=== PATIENT | male | born 1970 | race Caucasian/White ===

== ENCOUNTER → 2017-05-01 | Outpatient (CLI) | payer OTHER ==
[~2017-05-01] MED LIST: ACET325 PO; AMLO5 PO; AMOCLA875 PO; AMOX875 PO; Androgel5 GM; Augmentin 875-1 EACH PO; BACL10 PO; BASAGLAR K100 UNIT/1 SC; CEPH500 PO; CLIN300 PO; CYCL10 PO; ERGO400 PO; FISH OIL 1,0001 EAC1 PO; FISH1000 PO; GABA600 PO; GEMF600 PO; GLIM4 PO; GLYB5 PO; HYDCHL25 PO; HYDMOR4; Humalog100 UNIT/1 SC; IBUP600 PO; INSDET100 SC; INSULANI SC; INSULANI SUBQ; INSULANPEN SC; LISI20 PO; METF500 PO; NIAC500ER PO; Neurontin 300300 MG PO; Norco 10-325 T1 EACH PO; Novolog Fl100 UNIT/1 SQ; OXYC10ER PO; ROSU5 PO; ROXICODONE5 MG PO; SULTRIDS; TRAM50 PO; Zofran Odt4 MG SL
== END | disposition home or self-care (01) ==
LOC: LAB 16:08
DX: M86.179 Other acute osteomyelitis, unspecified ankle and foot (principal)
CPT/HCPCS: 87070; 87077; 87186; 87205

== ENCOUNTER 2017-05-26 09:49 | Emergency (ER) | payer OTHER ==
[~2017-05-26] VITALS: Ht 182.9 cm; Wt 108.9 kg
[~2017-05-26 09:49] MED LIST changes: -BASAGLAR K100 UNIT/1 SC; -CLIN300 PO; -ERGO400 PO; -FISH OIL 1,0001 EAC1 PO; -Humalog100 UNIT/1 SC; -ROXICODONE5 MG PO; -Zofran Odt4 MG SL
[2017-05-26 11:07] LABS: BASOPHILS ABSOLUTE AUTO 0.04 K/mm3 (0.00-0.23); BASOPHILS PERCENT AUTO 1 % (0-2); EOSINOPHILS ABSOLUTE AUTO 0.18 K/mm3 (0.00-0.68); EOSINOPHILS PERCENT AUTO 2 % (0-6); Hematocrit 47.1 % (37.0-53.0); Hemoglobin 16.1 g/dL (13.5-17.5); IMMATURE GRAN ABSOLUTE AUTO 0.02 K/mm3 (0.00-0.10); IMMATURE GRAN PERCENT AUTO 0 % (0-1); LYMPHOCYTES ABSOLUTE AUTO 1.66 K/mm3 (0.84-5.20); LYMPHOCYTES PERCENT AUTO 22 % (21-46); MONOCYTES ABSOLUTE AUTO 0.58 K/mm3 (0.16-1.47); MONOCYTES PERCENT AUTO 8 % (4-13); Mean Corpuscular HGB 28.1 pg (26.0-34.0); Mean Corpuscular HGB Conc 34.2 g/dL (31.5-36.5); Mean Corpuscular Volume 82 fL (80-100); Mean Platelet Volume 11.9 fL (9.1-12.4); NEUTROPHILS ABSOLUTE AUTO 5.13 K/mm3 (1.96-9.15); NEUTROPHILS PERCENT AUTO 67 % (41-73); Platelet Count 241 K/mm3 (150-400); RDW Coefficient Variation 12.4 % (11.7-14.2); RDW Standard Deviation 37.2 fL (35.1-46.3); Red Blood Cell Count 5.72 M/mm3 (4.30-5.90); White Blood Cell Count 7.61 K/mm3 (4.00-11.30)
[2017-05-26 11:27] LABS: Alanine Aminotransfer (ALT/SGP 32 U/L (12-78); Albumin, Blood 3.7 g/dL (3.4-5.0); Albumin/Globulin Ratio 0.8 (0.8-1.8); Alk Phos 121 U/L (50-136); Anion Gap 8 mmol/L (6-16); Aspartate Aminotrans (AST/SGOT 21 U/L (12-37); Bilirubin, Total 0.6 mg/dL (0.1-1.0); Blood Urea Nitrogen 19 mg/dL (8-24); Bun/Creatinine Ratio 35.2 (12.0-20.0); CO2, Blood 28 mmol/L (21-32); Calcium, Blood 9.4 mg/dL (8.5-10.1); Chloride, Blood 99 mmol/L (98-108); Creatinine, Blood 0.54 mg/dL (0.60-1.20); Globulin, Blood 4.4 g/dL (2.2-4.0); Glomerular Filtration Rate >60 (60-); Glucose, Blood 225 mg/dL (70-99); Potassium, Blood 3.9 mmol/L (3.5-5.5); Sodium, Blood 135 mmol/L (136-145); Total Protein, Blood 8.1 g/dL (6.4-8.2)
[2017-05-26] MEDS ORDERED: METF500 PO (12:08)
[2017-05-26] MEDS ORDERED: GEMF600 PO (12:09)
[2017-05-26] MEDS ORDERED: BASAGLAR K100 UNIT/1 SC (12:12)
[2017-05-26] MEDS ORDERED: CLIN300 PO (12:15)
[2017-05-26] MEDS ORDERED: CYCL10 PO (12:15)
[2017-05-26 13:24] LABS: Troponin I <0.015 ng/mL (0.000-0.040)
[2017-05-26] MEDS ORDERED: Zofran Odt4 MG SL (13:33)
[2017-07-29] MEDS ORDERED: Humalog100 UNIT/1 SC (13:54)
[2017-07-29] MEDS ORDERED: GABA600 PO (13:55)
[2017-07-29] MEDS ORDERED: FISH OIL 1,0001 EAC1 PO (13:55)
[2017-07-29] MEDS ORDERED: BASAGLAR K100 UNIT/1 SC (13:57)
[2017-07-29] MEDS ORDERED: ERGO400 PO (13:57)
== END 2017-05-26 13:40 | disposition home or self-care (01) ==
LOC: ER 09:49
PROVIDERS: Emergency Medicine
DX: R11.2 Nausea with vomiting, unspecified (principal); E11.65 Type 2 diabetes mellitus with hyperglycemia; I10 Essential (primary) hypertension; Z88.5 Allergy status to narcotic agent; Z88.8 Allergy status to other drugs, medicaments and biological substances; Z88.2 Allergy status to sulfonamides; Z88.1 Allergy status to other antibiotic agents; Z79.899 Other long term (current) drug therapy; Z79.4 Long term (current) use of insulin; Z87.891 Personal history of nicotine dependence
CPT/HCPCS: 36415; 80053; 83690; 84484; 85025; 93005; 93010; 96361; 96374; 99283; J2405; J7030

== ENCOUNTER → 2017-06-28 | Outpatient (CLI) | payer OTHER ==
[~2017-06-28] MED LIST changes: +BASAGLAR K100 UNIT/1 SC; +CLIN300 PO; +Zofran Odt4 MG SL
[2017-06-28 16:27] LABS: BASOPHILS ABSOLUTE AUTO 0.04 K/mm3 (0.00-0.23); BASOPHILS PERCENT AUTO 1 % (0-2); EOSINOPHILS ABSOLUTE AUTO 0.17 K/mm3 (0.00-0.68); EOSINOPHILS PERCENT AUTO 2 % (0-6); Hematocrit 41.6 % (37.0-53.0); Hemoglobin 14.8 g/dL (13.5-17.5); IMMATURE GRAN ABSOLUTE AUTO 0.03 K/mm3 (0.00-0.10); IMMATURE GRAN PERCENT AUTO 0 % (0-1); LYMPHOCYTES ABSOLUTE AUTO 1.86 K/mm3 (0.84-5.20); LYMPHOCYTES PERCENT AUTO 24 % (21-46); MONOCYTES ABSOLUTE AUTO 0.65 K/mm3 (0.16-1.47); MONOCYTES PERCENT AUTO 9 % (4-13); Mean Corpuscular HGB Conc 35.6 g/dL (31.5-36.5); Mean Corpuscular Volume 82 fL (80-100); Mean Platelet Volume 11.4 fL (9.1-12.4); NEUTROPHILS ABSOLUTE AUTO 4.92 K/mm3 (1.96-9.15); NEUTROPHILS PERCENT AUTO 64 % (41-73); Platelet Count 257 K/mm3 (150-400); RDW Standard Deviation 38.3 fL (35.1-46.3); White Blood Cell Count 7.67 K/mm3 (4.00-11.30)
[2017-06-28 16:38] LABS: Alanine Aminotransfer (ALT/SGP 30 U/L (12-78); Alk Phos 125 U/L (40-126); Amylase, Blood 173 U/L (25-115); Anion Gap 13 mmol/L (6-16); Aspartate Aminotrans (AST/SGOT 17 U/L (12-37); Bilirubin, Total 0.4 mg/dL (0.1-1.0); Blood Urea Nitrogen 24 mg/dL (8-24); Bun/Creatinine Ratio 25.8 (12.0-20.0); CO2, Blood 26 mmol/L (21-32); Calcium, Blood 9.3 mg/dL (8.5-10.1); Chloride, Blood 102 mmol/L (98-108); Creatinine, Blood 0.93 mg/dL (0.60-1.20); Glomerular Filtration Rate >60 (60-); Glucose, Blood 137 mg/dL (70-99); Potassium, Blood 3.5 mmol/L (3.5-5.5); Sodium, Blood 141 mmol/L (136-145)
== END ==
LOC: LAB SHORT 16:23 → LAB EV 16:23
PROVIDERS: Emergency Medicine
DX: R10.9 Unspecified abdominal pain (principal)
CPT/HCPCS: 80053; 82150; 83690; 85025

== ENCOUNTER 2017-07-31 06:07 | Observation (INO) | payer OTHER ==
[~2017-07-31] VITALS: Ht 180.3 cm; Wt 120.7 kg
[~2017-07-31 06:07] MED LIST changes: +ERGO400 PO; +FISH OIL 1,0001 EAC1 PO; +Humalog100 UNIT/1 SC
[2017-07-31 09:38] LABS: Hematocrit 39.8 % (37.0-53.0); Hemoglobin 13.3 g/dL (13.5-17.5); Mean Corpuscular HGB 28.6 pg (26.0-34.0); Mean Corpuscular HGB Conc 33.4 g/dL (31.5-36.5); Mean Corpuscular Volume 86 fL (80-100); Mean Platelet Volume 11.6 fL (9.1-12.4); Platelet Count 195 K/mm3 (150-400); RDW Coefficient Variation 13.3 % (11.7-14.2); RDW Standard Deviation 41.5 fL (35.1-46.3); Red Blood Cell Count 4.65 M/mm3 (4.30-5.90); White Blood Cell Count 5.83 K/mm3 (4.00-11.30)
[2017-07-31 09:53] LABS: Anion Gap 9 mmol/L (6-16); Blood Urea Nitrogen 19 mg/dL (8-24); Bun/Creatinine Ratio 32.9 (12.0-20.0); CO2, Blood 22 mmol/L (21-32); Calcium, Blood 8.6 mg/dL (8.5-10.1); Chloride, Blood 108 mmol/L (98-108); Creatinine, Blood 0.58 mg/dL (0.60-1.20); Glomerular Filtration Rate >60 (60-); Glucose, Blood 188 mg/dL (70-99); Potassium, Blood 3.9 mmol/L (3.5-5.5); Sodium, Blood 139 mmol/L (136-145)
[2017-08-01 06:16] LABS: Anion Gap 5 mmol/L (6-16); Blood Urea Nitrogen 23 mg/dL (8-24); Bun/Creatinine Ratio 34.9 (12.0-20.0); CO2, Blood 27 mmol/L (21-32); Calcium, Blood 8.6 mg/dL (8.5-10.1); Chloride, Blood 106 mmol/L (98-108); Creatinine, Blood 0.66 mg/dL (0.60-1.20); Glomerular Filtration Rate >60 (60-); Glucose, Blood 201 mg/dL (70-99); Potassium, Blood 4.1 mmol/L (3.5-5.5); Sodium, Blood 138 mmol/L (136-145)
[2017-08-01] MEDS ORDERED: ROXICODONE5 MG PO (12:51)
== END 2017-08-01 14:10 | disposition home or self-care (01) ==
LOC: ORSCMMR 06:07 → ORD 07:30 → SURS 08:42 → ORSCMMR 08:42 → SURS 08-01 14:10
PROVIDERS: Internal Medicine; Podiatrist Foot & Ankle Surgery
PROC: 0QBR0ZZ Excision of Left Toe Phalanx, Open Approach (ICD-10-PCS; principal; 2017-07-31 07:30)
PROC: 0Y6S0Z3 Detachment at Left 2nd Toe, Low, Open Approach (ICD-10-PCS; 2017-07-31 07:30)
DX: E11.69 Type 2 diabetes mellitus with other specified complication (principal); M86.8X7 Other osteomyelitis, ankle and foot; E11.621 Type 2 diabetes mellitus with foot ulcer; L97.529 Non-pressure chronic ulcer of other part of left foot with unspecified severity; I10 Essential (primary) hypertension; I25.10 Atherosclerotic heart disease of native coronary artery without angina pectoris; Z95.5 Presence of coronary angioplasty implant and graft; E11.9 Type 2 diabetes mellitus without complications; Z87.891 Personal history of nicotine dependence; Z88.5 Allergy status to narcotic agent; Z88.2 Allergy status to sulfonamides; Z88.8 Allergy status to other drugs, medicaments and biological substances; Z79.4 Long term (current) use of insulin; Z96.698 Presence of other orthopedic joint implants; Z79.899 Other long term (current) drug therapy; Z79.84 Long term (current) use of oral hypoglycemic drugs
CPT/HCPCS: 36415; 80048; 82947; 85027; 87071; 87075; 87077; 87186; 87205; 88305; 88311; 96365; 96366; 96367; 96368; 96375; 96376; G0378; J0690; J0692; J1815; J1817; J2250; J2405; J3010; J3370; J7050; J7120

== ENCOUNTER → 2017-12-03 | Outpatient (CLI) | payer OTHER ==
[~2017-12-03] MED LIST changes: +ROXICODONE5 MG PO
[2017-12-03 14:11] LABS: BASOPHILS ABSOLUTE AUTO 0.03 K/mm3 (0.00-0.23); BASOPHILS PERCENT AUTO 1 % (0-2); EOSINOPHILS ABSOLUTE AUTO 0.09 K/mm3 (0.00-0.68); EOSINOPHILS PERCENT AUTO 2 % (0-6); Hemoglobin 12.7 g/dL (13.5-17.5); IMMATURE GRAN ABSOLUTE AUTO 0.04 K/mm3 (0.00-0.10); IMMATURE GRAN PERCENT AUTO 1 % (0-1); LYMPHOCYTES ABSOLUTE AUTO 1.14 K/mm3 (0.84-5.20); LYMPHOCYTES PERCENT AUTO 19 % (21-46); MONOCYTES ABSOLUTE AUTO 0.48 K/mm3 (0.16-1.47); MONOCYTES PERCENT AUTO 8 % (4-13); Mean Corpuscular HGB 30.1 pg (26.0-34.0); Mean Corpuscular HGB Conc 35.3 g/dL (31.5-36.5); Mean Corpuscular Volume 85 fL (80-100); Mean Platelet Volume 11.6 fL (9.1-12.4); NEUTROPHILS ABSOLUTE AUTO 4.14 K/mm3 (1.96-9.15); NEUTROPHILS PERCENT AUTO 70 % (41-73); Platelet Count 204 K/mm3 (150-400); RDW Coefficient Variation 13.1 % (11.7-14.2); RDW Standard Deviation 40.1 fL (35.1-46.3); Red Blood Cell Count 4.22 M/mm3 (4.30-5.90); White Blood Cell Count 5.92 K/mm3 (4.00-11.30)
[2017-12-03 14:25] LABS: Alanine Aminotransfer (ALT/SGP 35 U/L (12-78); Albumin, Blood 3.8 g/dL (3.4-5.0); Albumin/Globulin Ratio 1.1 (0.8-1.8); Alk Phos 107 U/L (40-126); Anion Gap 9 mmol/L (6-16); Aspartate Aminotrans (AST/SGOT 19 U/L (12-37); Bilirubin, Total 0.3 mg/dL (0.1-1.0); Blood Urea Nitrogen 41 mg/dL (8-24); Bun/Creatinine Ratio 29.3 (12.0-20.0); CO2, Blood 23 mmol/L (21-32); Calcium, Blood 9.6 mg/dL (8.5-10.1); Chloride, Blood 104 mmol/L (98-108); Globulin, Blood 3.4 g/dL (2.2-4.0); Glomerular Filtration Rate 54 (60-); Glucose, Blood 296 mg/dL (70-99); Potassium, Blood 4.5 mmol/L (3.5-5.5); Sodium, Blood 136 mmol/L (136-145); Total Protein, Blood 7.2 g/dL (6.4-8.2)
[2017-12-03 14:27] LABS: Troponin I <0.017 ng/mL (0.000-0.040)
== END | disposition home or self-care (01) ==
LOC: LAB EV 14:07 → LAB SHORT 14:07
PROVIDERS: Physician Assistant
DX: R53.83 Other fatigue (principal)
CPT/HCPCS: 80053; 83690; 84484; 85025

== ENCOUNTER 2018-06-24 15:38 | Emergency (ER) | payer OTHER ==
[~2018-06-24] VITALS: Ht 182.9 cm; Wt 105.7 kg
[2018-06-24 16:46] LABS: BASOPHILS ABSOLUTE AUTO 0.05 K/mm3 (0.00-0.23); BASOPHILS PERCENT AUTO 1 % (0-2); EOSINOPHILS ABSOLUTE AUTO 0.29 K/mm3 (0.00-0.68); EOSINOPHILS PERCENT AUTO 4 % (0-6); Hematocrit 38.5 % (37.0-53.0); Hemoglobin 12.7 g/dL (13.5-17.5); IMMATURE GRAN ABSOLUTE AUTO 0.02 K/mm3 (0.00-0.10); IMMATURE GRAN PERCENT AUTO 0 % (0-1); LYMPHOCYTES ABSOLUTE AUTO 1.83 K/mm3 (0.84-5.20); LYMPHOCYTES PERCENT AUTO 26 % (21-46); MONOCYTES ABSOLUTE AUTO 0.39 K/mm3 (0.16-1.47); MONOCYTES PERCENT AUTO 6 % (4-13); Mean Corpuscular Volume 85 fL (80-100); Mean Platelet Volume 11.4 fL (9.1-12.4); NEUTROPHILS ABSOLUTE AUTO 4.52 K/mm3 (1.96-9.15); NEUTROPHILS PERCENT AUTO 64 % (41-73); Platelet Count 287 K/mm3 (150-400); RDW Coefficient Variation 12.6 % (11.7-14.2); RDW Standard Deviation 38.4 fL (35.1-46.3); Red Blood Cell Count 4.54 M/mm3 (4.30-5.90)
[2018-06-24 17:35] LABS: Alanine Aminotransfer (ALT/SGP 21 U/L (12-78); Albumin, Blood 3.5 g/dL (3.4-5.0); Albumin/Globulin Ratio 0.8 (0.8-1.8); Alk Phos 114 U/L (50-136); Anion Gap 7 mmol/L (6-16); Aspartate Aminotrans (AST/SGOT 11 U/L (12-37); Bilirubin, Total 0.4 mg/dL (0.1-1.0); Blood Urea Nitrogen 26 mg/dL (8-24); Bun/Creatinine Ratio 43.5 (12.0-20.0); CO2, Blood 24 mmol/L (21-32); Calcium, Blood 9.1 mg/dL (8.5-10.1); Chloride, Blood 109 mmol/L (98-108); Globulin, Blood 4.3 g/dL (2.2-4.0); Glomerular Filtration Rate >60 (60-); Glucose, Blood 181 mg/dL (70-99); Potassium, Blood 4.1 mmol/L (3.5-5.5); Sodium, Blood 140 mmol/L (136-145); Total Protein, Blood 7.8 g/dL (6.4-8.2)
== END 2018-06-24 22:23 | disposition home or self-care (01) ==
LOC: ER 15:38
PROVIDERS: Physician Assistant
DX: E11.65 Type 2 diabetes mellitus with hyperglycemia (principal); E11.59 Type 2 diabetes mellitus with other circulatory complications; I10 Essential (primary) hypertension; Z88.2 Allergy status to sulfonamides; Z88.6 Allergy status to analgesic agent; Z88.8 Allergy status to other drugs, medicaments and biological substances; Z79.899 Other long term (current) drug therapy; Z87.891 Personal history of nicotine dependence; Z89.422 Acquired absence of other left toe(s)
CPT/HCPCS: 73630; 80053; 85025; 99284-25

== ENCOUNTER → 2018-09-18 | Outpatient (CLI) | payer OTHER ==
[~2018-09-18] MED LIST changes: -AMLO5 PO; +Amlodipine Besy10 MG PO; +ONDA4ODT SL; +OXYC10TA19 PO; +Ondansetron Odt8 MG PO; +PROC5 PO
== END | disposition home or self-care (01) ==
LOC: LAB EV 18:00
DX: E11.9 Type 2 diabetes mellitus without complications (principal); R19.7 Diarrhea, unspecified; R11.2 Nausea with vomiting, unspecified
CPT/HCPCS: 87493

== ENCOUNTER → 2018-09-21 | Outpatient (CLI) | payer OTHER | LOC: LAB EV 08:30 | DX: E11.65 Type 2 diabetes mellitus with hyperglycemia (principal) | CPT/HCPCS: 82043 ==

== ENCOUNTER 2018-11-16 01:47 | Emergency (ER) | payer OTHER ==
[~2018-11-16] VITALS: Ht 182.9 cm; Wt 108.9 kg
[~2018-11-16 01:47] MED LIST changes: -ONDA4ODT SL; -OXYC10TA19 PO; -Ondansetron Odt8 MG PO; -PROC5 PO
[2018-11-16 02:08] LABS: BASOPHILS ABSOLUTE AUTO 0.05 K/mm3 (0.00-0.23); BASOPHILS PERCENT AUTO 1 % (0-2); EOSINOPHILS ABSOLUTE AUTO 0.02 K/mm3 (0.00-0.68); EOSINOPHILS PERCENT AUTO 0 % (0-6); Hematocrit 40.2 % (37.0-53.0); Hemoglobin 13.8 g/dL (13.5-17.5); IMMATURE GRAN ABSOLUTE AUTO 0.07 K/mm3 (0.00-0.10); IMMATURE GRAN PERCENT AUTO 1 % (0-1); LYMPHOCYTES ABSOLUTE AUTO 0.71 K/mm3 (0.84-5.20); LYMPHOCYTES PERCENT AUTO 7 % (21-46); MONOCYTES PERCENT AUTO 6 % (4-13); Mean Corpuscular HGB 29.2 pg (26.0-34.0); Mean Corpuscular HGB Conc 34.3 g/dL (31.5-36.5); Mean Corpuscular Volume 85 fL (80-100); Mean Platelet Volume 11.7 fL (9.1-12.4); NEUTROPHILS ABSOLUTE AUTO 9.49 K/mm3 (1.96-9.15); NEUTROPHILS PERCENT AUTO 87 % (41-73); Platelet Count 181 K/mm3 (150-400); RDW Coefficient Variation 12.2 % (11.7-14.2); RDW Standard Deviation 37.8 fL (35.1-46.3); Red Blood Cell Count 4.73 M/mm3 (4.30-5.90); White Blood Cell Count 10.94 K/mm3 (4.00-11.30)
[2018-11-16 02:28] LABS: Alanine Aminotransfer (ALT/SGP 33 U/L (12-78); Albumin, Blood 3.2 g/dL (3.4-5.0); Albumin/Globulin Ratio 0.7 (0.8-1.8); Alk Phos 126 U/L (50-136); Anion Gap 18 mmol/L (6-16); Aspartate Aminotrans (AST/SGOT 14 U/L (12-37); Bilirubin, Total 0.7 mg/dL (0.1-1.0); Blood Urea Nitrogen 14 mg/dL (8-24); Bun/Creatinine Ratio 25.6 (12.0-20.0); CO2, Blood 18 mmol/L (21-32); Calcium, Blood 8.3 mg/dL (8.5-10.1); Chloride, Blood 92 mmol/L (98-108); Creatinine, Blood 0.55 mg/dL (0.60-1.20); Ethanol (Alcohol), Blood, Med <3 mg/dL; Globulin, Blood 4.9 g/dL (2.2-4.0); Glomerular Filtration Rate >60 (60-); Glucose, Blood 324 mg/dL (70-99); Potassium, Blood 3.8 mmol/L (3.5-5.5); Sodium, Blood 128 mmol/L (136-145); Total Protein, Blood 8.1 g/dL (6.4-8.2); Troponin I <0.015 ng/mL (0.000-0.040)
[2018-11-16] MEDS ORDERED: IBUP600 PO (04:26)
[2018-11-16] MEDS ORDERED: Ondansetron Odt8 MG PO (04:26)
== END 2018-11-16 05:31 | disposition home or self-care (01) ==
LOC: ER 01:47
PROVIDERS: Emergency Medicine
DX: K80.20 Calculus of gallbladder without cholecystitis without obstruction (principal); Z88.5 Allergy status to narcotic agent; Z88.8 Allergy status to other drugs, medicaments and biological substances; Z88.1 Allergy status to other antibiotic agents; Z88.2 Allergy status to sulfonamides; Z79.899 Other long term (current) drug therapy; Z79.4 Long term (current) use of insulin; E11.9 Type 2 diabetes mellitus without complications; I10 Essential (primary) hypertension; I25.10 Atherosclerotic heart disease of native coronary artery without angina pectoris; Z87.891 Personal history of nicotine dependence
CPT/HCPCS: 74177; 76705; 80053; 83690; 84484; 85025; 93005; 93010; 96361; 96374-59; 96375; 99284-25; C9113; G0480; J1885; J2270; J7030; Q9967

== ENCOUNTER → 2018-11-23 | Outpatient (CLI) | payer OTHER ==
[~2018-11-23] MED LIST changes: +ONDA4ODT SL; +OXYC10TA19 PO; +Ondansetron Odt8 MG PO; +PROC5 PO
== END | disposition home or self-care (01) ==
LOC: PLD 08:44 → LAB SHORT 08:44
DX: I96 Gangrene, not elsewhere classified (principal); E11.621 Type 2 diabetes mellitus with foot ulcer; L97.529 Non-pressure chronic ulcer of other part of left foot with unspecified severity; M86.9 Osteomyelitis, unspecified
CPT/HCPCS: 87070; 87077; 87186; 87205; 88305; 88311

== ENCOUNTER → 2018-12-02 | Outpatient (CLI) | payer OTHER | END | disposition home or self-care (01) | LOC: LAB SHORT 08:38 → LAB 08:38 | DX: I96 Gangrene, not elsewhere classified (principal); L97.529 Non-pressure chronic ulcer of other part of left foot with unspecified severity | CPT/HCPCS: 87070; 87075; 87076; 87185; 87205 ==

== ENCOUNTER 2018-12-08 07:39 | Day surgery (SDC) | payer OTHER ==
[~2018-12-08 07:39] MED LIST changes: -ONDA4ODT SL; -OXYC10TA19 PO; -PROC5 PO
== END 2018-12-08 22:35 | disposition home or self-care (01) ==
LOC: WOUND 07:39
DX: E11.621 Type 2 diabetes mellitus with foot ulcer (principal); L97.525 Non-pressure chronic ulcer of other part of left foot with muscle involvement without evidence of necrosis; E11.42 Type 2 diabetes mellitus with diabetic polyneuropathy; I10 Essential (primary) hypertension; I25.10 Atherosclerotic heart disease of native coronary artery without angina pectoris; I25.2 Old myocardial infarction; Z89.422 Acquired absence of other left toe(s)
CPT/HCPCS: G0463

== ENCOUNTER 2018-12-16 13:31 | Day surgery (SDC) | payer OTHER | END 2018-12-16 22:47 | disposition home or self-care (01) | LOC: WOUND 13:31 | DX: E11.621 Type 2 diabetes mellitus with foot ulcer (principal); L97.525 Non-pressure chronic ulcer of other part of left foot with muscle involvement without evidence of necrosis; E11.42 Type 2 diabetes mellitus with diabetic polyneuropathy; I10 Essential (primary) hypertension; I25.10 Atherosclerotic heart disease of native coronary artery without angina pectoris; Z89.422 Acquired absence of other left toe(s) ==

== ENCOUNTER 2018-12-17 07:42 | Day surgery (SDC) | payer OTHER | END 2018-12-17 23:01 | disposition home or self-care (01) | LOC: WOUND 07:42 | DX: E11.621 Type 2 diabetes mellitus with foot ulcer (principal); L97.525 Non-pressure chronic ulcer of other part of left foot with muscle involvement without evidence of necrosis; E11.42 Type 2 diabetes mellitus with diabetic polyneuropathy; I10 Essential (primary) hypertension; I25.10 Atherosclerotic heart disease of native coronary artery without angina pectoris; Z89.422 Acquired absence of other left toe(s) ==

== ENCOUNTER 2018-12-19 17:36 | Emergency (ER) | payer OTHER ==
[~2018-12-19] VITALS: Ht 182.9 cm; Wt 108.9 kg
[2018-12-19 17:54] LABS: Base Excess Venous 1.1 mmol/L; Bicarbonate Venous 25.2 mmol/L (24.0-30.0); PCO2 Venous 37.4 mmHg (38-42); PO2 Venous 51.5 mmHg (38-42); pH Blood Venous 7.44 (7.34-7.37)
[2018-12-19 17:55] LABS: BASOPHILS ABSOLUTE AUTO 0.02 K/mm3 (0.00-0.23); BASOPHILS PERCENT AUTO 0 % (0-2); EOSINOPHILS PERCENT AUTO 0 % (0-6); Hematocrit 32.2 % (37.0-53.0); Hemoglobin 10.8 g/dL (13.5-17.5); IMMATURE GRAN ABSOLUTE AUTO 0.02 K/mm3 (0.00-0.10); IMMATURE GRAN PERCENT AUTO 0 % (0-1); LYMPHOCYTES ABSOLUTE AUTO 0.65 K/mm3 (0.84-5.20); LYMPHOCYTES PERCENT AUTO 9 % (21-46); MONOCYTES ABSOLUTE AUTO 0.66 K/mm3 (0.16-1.47); MONOCYTES PERCENT AUTO 10 % (4-13); Mean Corpuscular HGB 28.3 pg (26.0-34.0); Mean Corpuscular HGB Conc 33.5 g/dL (31.5-36.5); Mean Corpuscular Volume 85 fL (80-100); Mean Platelet Volume 11.5 fL (9.1-12.4); NEUTROPHILS ABSOLUTE AUTO 5.55 K/mm3 (1.96-9.15); NEUTROPHILS PERCENT AUTO 80 % (41-73); Platelet Count 200 K/mm3 (150-400); RDW Coefficient Variation 12.1 % (11.7-14.2); Red Blood Cell Count 3.81 M/mm3 (4.30-5.90)
[2018-12-19 18:22] LABS: Alanine Aminotransfer (ALT/SGP 15 U/L (12-78); Albumin, Blood 3.4 g/dL (3.4-5.0); Albumin/Globulin Ratio 0.7 (0.8-1.8); Alk Phos 99 U/L (50-136); Anion Gap 7 mmol/L (6-16); Aspartate Aminotrans (AST/SGOT 16 U/L (12-37); Bilirubin, Total 0.6 mg/dL (0.1-1.0); Blood Urea Nitrogen 31 mg/dL (8-24); Bun/Creatinine Ratio 33.1 (12.0-20.0); CO2, Blood 25 mmol/L (21-32); Calcium, Blood 9.1 mg/dL (8.5-10.1); Chloride, Blood 98 mmol/L (98-108); Creatinine, Blood 0.94 mg/dL (0.60-1.20); Globulin, Blood 4.8 g/dL (2.2-4.0); Glomerular Filtration Rate >60 (60-); Glucose, Blood 221 mg/dL (70-99); Potassium, Blood 3.6 mmol/L (3.5-5.5); Sodium, Blood 130 mmol/L (136-145); Total Protein, Blood 8.2 g/dL (6.4-8.2)
[2018-12-19 18:30] LABS: Beta-hydroxybutyrate 7.1 mg/dL (0.2-2.8)
[2018-12-19] MEDS ORDERED: PROC5 PO (19:51)
== END 2018-12-19 21:15 | disposition home or self-care (01) ==
LOC: ER 17:36
PROVIDERS: Emergency Medicine
DX: K83.9 Disease of biliary tract, unspecified (principal); Z88.8 Allergy status to other drugs, medicaments and biological substances; Z88.5 Allergy status to narcotic agent; Z88.2 Allergy status to sulfonamides; Z88.1 Allergy status to other antibiotic agents; Z79.899 Other long term (current) drug therapy; Z79.4 Long term (current) use of insulin; E11.9 Type 2 diabetes mellitus without complications; Z87.891 Personal history of nicotine dependence
CPT/HCPCS: 36415; 76705; 80053; 82010; 82803; 82947; 83605; 85025; 87040; 96374; 96375; 99284-25; A9270; J0780; J1170; J1200

== ENCOUNTER 2019-01-22 08:23 | Inpatient (IN) | payer OTHER ==
[~2019-01-22] VITALS: Ht 182.9 cm; Wt 98.5 kg
[~2019-01-22 08:23] MED LIST changes: +PROC5 PO
[2019-01-22 09:04] LABS: BASOPHILS ABSOLUTE AUTO 0.04 K/mm3 (0.00-0.23); BASOPHILS PERCENT AUTO 0 % (0-2); EOSINOPHILS ABSOLUTE AUTO 0.01 K/mm3 (0.00-0.68); EOSINOPHILS PERCENT AUTO 0 % (0-6); Hematocrit 35.9 % (37.0-53.0); Hemoglobin 11.9 g/dL (13.5-17.5); IMMATURE GRAN ABSOLUTE AUTO 0.08 K/mm3 (0.00-0.10); IMMATURE GRAN PERCENT AUTO 1 % (0-1); LYMPHOCYTES ABSOLUTE AUTO 0.77 K/mm3 (0.84-5.20); LYMPHOCYTES PERCENT AUTO 5 % (21-46); MONOCYTES ABSOLUTE AUTO 0.78 K/mm3 (0.16-1.47); MONOCYTES PERCENT AUTO 5 % (4-13); Mean Corpuscular HGB 27.7 pg (26.0-34.0); Mean Corpuscular HGB Conc 33.1 g/dL (31.5-36.5); Mean Corpuscular Volume 84 fL (80-100); Mean Platelet Volume 11.6 fL (9.1-12.4); NEUTROPHILS ABSOLUTE AUTO 14.59 K/mm3 (1.96-9.15); NEUTROPHILS PERCENT AUTO 90 % (41-73); Platelet Count 235 K/mm3 (150-400); RDW Coefficient Variation 13.4 % (11.7-14.2); RDW Standard Deviation 40.8 fL (35.1-46.3); White Blood Cell Count 16.27 K/mm3 (4.00-11.30)
[2019-01-22 09:17] LABS: Alanine Aminotransfer (ALT/SGP 32 U/L (12-78); Albumin, Blood 3.5 g/dL (3.4-5.0); Albumin/Globulin Ratio 0.6 (0.8-1.8); Alk Phos 125 U/L (50-136); Anion Gap 11 mmol/L (6-16); Aspartate Aminotrans (AST/SGOT 29 U/L (12-37); Bilirubin, Total 0.9 mg/dL (0.1-1.0); Blood Urea Nitrogen 13 mg/dL (8-24); Bun/Creatinine Ratio 19.8 (12.0-20.0); CO2, Blood 24 mmol/L (21-32); Calcium, Blood 10.1 mg/dL (8.5-10.1); Chloride, Blood 95 mmol/L (98-108); Creatinine, Blood 0.66 mg/dL (0.60-1.20); Globulin, Blood 5.7 g/dL (2.2-4.0); Glomerular Filtration Rate >60 (60-); Glucose, Blood 278 mg/dL (70-99); Magnesium, Blood 1.5 mg/dL (1.6-2.4); Sodium, Blood 130 mmol/L (136-145); Total Protein, Blood 9.2 g/dL (6.4-8.2)
[2019-01-22] MEDS ORDERED: ONDA4ODT SL (12:46)
[2019-01-22] MEDS ORDERED: GABA600 PO (12:57)
[2019-01-22] MEDS ORDERED: OXYC10TA19 PO (12:58)
[2019-01-22] MEDS ORDERED: ACET325 PO (12:59)
--- NOTE | 2019-01-22 15:49 | NUR ---
Brief visit this afternoon. Pt reports being and has 2 children. His son lives with him and daughter lives on the executive coach. Pt reports being of Denominational tg and is open to office technology instructor visit. Pt reports his nausea has improved since recently receiving anti nausea medication. He reports nausea has decreased to a 4/7 but requested emesis bag. Retrieved emesis bag and Pt is intermittently dry heaving. Ended visit to allow Pt to rest. Discussed case with bedside nurse Gareth. Reviewed medications and Gareth plans to contact hospitalist regarding better nausea and pain management. Palliative Care will remain available.
--- NOTE | 2019-01-22 18:27 | NUR ---
SUMMARY- PT NAUSEATED FROM THE START COMING FROM ED. HAVING PAIN IN ABD FROM GALLBLADDER ISSUES AND HAVING PAIN IN L BKA. MEDICATED WITH ZOFRAN AND REGLAN INITIALLY AT 1400 and 1440 with MIN RELEIF. MEDICATED WITH FENT Q2 FOR PAIN. NO RELEIF UNTIL THE 3RD DOSE GIVEN WITH PHENERGAN. NAUSEA AND PAIN BOTH RELEIVED BY 1800. PT TOLERATING SIPS OF CLEARS. GETTING IVF. SR AXEL HERE TO SEE PT AROUND 1745, WILL AWAIT ANY GALLBLADDER PROCEDURE UNTIL THE INFECTION ON THE L BKA ADRESSED. WILL ENSURE DR HARRISON IS PLANNING ON ADERSSING THE INFECTION.
--- NOTE | 2019-01-23 04:35 | NUR ---
SHIFT SUMMARY AOX4. LS CLEAR, DENIES SOB. NAUSEA AND VOMITING IS MAIN PROBLEM. PT RECEIVING ZOFRAN, REGLAN, AND PHENERGAN. PAIN IS SOMEWHAT MANAGED BY FENTNYL, 50MCG Q2. L LEG CELLULITIS ON BKA STUMP. DRESSING CHANGED. AC & HS, HS BLOOD GLUCOSE WAS 242. TELE READS ST 117 WITH BBB. CLEAR LIQ TOLERATING POORLY. R WRIST IV HAS NS @ 150. STOOL SAMPLE COLLECTED. PLAN IS TO TREAT CELLULITIS BEFORE REMOVING GALLBLADDER.
[2019-01-23 04:41] LABS: BASOPHILS ABSOLUTE AUTO 0.03 K/mm3 (0.00-0.23); BASOPHILS PERCENT AUTO 0 % (0-2); EOSINOPHILS PERCENT AUTO 0 % (0-6); Hematocrit 34.7 % (37.0-53.0); Hemoglobin 11.6 g/dL (13.5-17.5); IMMATURE GRAN ABSOLUTE AUTO 0.08 K/mm3 (0.00-0.10); IMMATURE GRAN PERCENT AUTO 1 % (0-1); LYMPHOCYTES PERCENT AUTO 4 % (21-46); MONOCYTES ABSOLUTE AUTO 0.97 K/mm3 (0.16-1.47); MONOCYTES PERCENT AUTO 6 % (4-13); Mean Corpuscular HGB 28.1 pg (26.0-34.0); Mean Corpuscular HGB Conc 33.4 g/dL (31.5-36.5); Mean Corpuscular Volume 84 fL (80-100); Mean Platelet Volume 11.5 fL (9.1-12.4); NEUTROPHILS ABSOLUTE AUTO 14.49 K/mm3 (1.96-9.15); NEUTROPHILS PERCENT AUTO 89 % (41-73); Platelet Count 272 K/mm3 (150-400); RDW Coefficient Variation 13.4 % (11.7-14.2); RDW Standard Deviation 41.5 fL (35.1-46.3); Red Blood Cell Count 4.13 M/mm3 (4.30-5.90); White Blood Cell Count 16.27 K/mm3 (4.00-11.30)
[2019-01-23 05:06] LABS: Alanine Aminotransfer (ALT/SGP 27 U/L (12-78); Albumin, Blood 3.3 g/dL (3.4-5.0); Albumin/Globulin Ratio 0.6 (0.8-1.8); Alk Phos 120 U/L (50-136); Anion Gap 12 mmol/L (6-16); Aspartate Aminotrans (AST/SGOT 24 U/L (12-37); Bilirubin, Total 0.7 mg/dL (0.1-1.0); Blood Urea Nitrogen 10 mg/dL (8-24); Bun/Creatinine Ratio 16.5 (12.0-20.0); CO2, Blood 21 mmol/L (21-32); Calcium, Blood 9.3 mg/dL (8.5-10.1); Chloride, Blood 98 mmol/L (98-108); Creatinine, Blood 0.61 mg/dL (0.60-1.20); Globulin, Blood 5.6 g/dL (2.2-4.0); Glomerular Filtration Rate >60 (60-); Glucose, Blood 223 mg/dL (70-99); Potassium, Blood 3.1 mmol/L (3.5-5.5); Sodium, Blood 131 mmol/L (136-145); Total Protein, Blood 8.9 g/dL (6.4-8.2)
--- NOTE | 2019-01-23 11:52 | NUR ---
PT NOTIFIED OG COBRA TRANSFER TO [facility] PER MD ORDERS AND AGREES WITH CURRENT PLAN. CHARGE NURSE IS AWARE OF COBRA TRANSFER.
--- NOTE | 2019-01-23 14:23 | NUR ---
PT HAS BEEN A/O X 4 WITH ONGOING C/O PAIN TO ABDOMEN AND NAUSEA. MEDS WERE GIVEN ORDERED. INCISION SITE TO L BKA REMAINS RED AND SLIGHTLY SWOLLEN WITH MILD AMOUNTS OF SEROPURULENT DRAINAGE. DRESSING WAS CHANGED ORDERED AND REMAINS C.D.I. PT HAS BEEN USING THE BSC FOR TOILETING ALL SHIFT. PT HAS BEEN NAPPING ON AND OFF THROUGHOUT THE SHIFT. DR DOLAN GAVE ORDERS TO TRANSFER PT TO [facility]. REPORT WAS CALLED TO RECEIVING RN, BRIANNA AT [phone] AND PT IS BEING TRANSPORTED VIA [facility] TO ROOM 7206. PT WAS SENT ON IV FLUIDS AND ABO ORDERED, PUMP # [id number]. CHARGE NURSE IS AWARE OF TRANSFER STATUS. PT CONSENTED TO TRANSFER AND IS IN AGREEMENT WITH CURRENT TX PLAN. ALL PERSONAL BELONGINGS SENT WITH PT. PT STABLE UPON TRANSFER.
== END 2019-01-23 14:24 | disposition short-term general hospital (02) | DRG 863 ==
LOC: ER 08:23 → MEDS 11:21
PROVIDERS: Emergency Medicine; ADMIT Internal Medicine
DX: T81.41XA Infection following a procedure, superficial incisional surgical site, initial encounter (principal); L03.116 Cellulitis of left lower limb; T81.44XA Sepsis following a procedure, initial encounter; I10 Essential (primary) hypertension; I25.10 Atherosclerotic heart disease of native coronary artery without angina pectoris; Z95.5 Presence of coronary angioplasty implant and graft; Z89.512 Acquired absence of left leg below knee; Z87.891 Personal history of nicotine dependence; Z79.4 Long term (current) use of insulin; E78.1 Pure hyperglyceridemia; M19.90 Unspecified osteoarthritis, unspecified site; E11.65 Type 2 diabetes mellitus with hyperglycemia; K80.20 Calculus of gallbladder without cholecystitis without obstruction
CPT/HCPCS: 36415; 73701; 76705; 78227; 80053; 82947; 83605; 83690; 83735; 85025; 87040; 87070; 87075; 87077; 87147; 87186; 87205; 87493; 96361; 96365-59; 96367; 96375-59; 99285-25; A9537; C9113; J0360; J0780; J1170; J1650; J2405; J2543; J2550; J2765; J3010; J3370; J3475; J3480; J7030; J7050; Q9967

== ENCOUNTER 2019-03-09 16:22 | Inpatient (IN) | payer OTHER ==
[~2019-03-09] VITALS: Ht 182.9 cm; Wt 99.5 kg
[~2019-03-09 16:22] MED LIST changes: +ONDA4ODT SL
[2019-03-09 16:59] LABS: BASOPHILS ABSOLUTE AUTO 0.03 K/mm3 (0.00-0.23); BASOPHILS PERCENT AUTO 0 % (0-2); EOSINOPHILS ABSOLUTE AUTO 0.01 K/mm3 (0.00-0.68); EOSINOPHILS PERCENT AUTO 0 % (0-6); Hematocrit 44.5 % (37.0-53.0); Hemoglobin 15.3 g/dL (13.5-17.5); IMMATURE GRAN ABSOLUTE AUTO 0.04 K/mm3 (0.00-0.10); IMMATURE GRAN PERCENT AUTO 0 % (0-1); LYMPHOCYTES ABSOLUTE AUTO 1.03 K/mm3 (0.84-5.20); LYMPHOCYTES PERCENT AUTO 9 % (21-46); MONOCYTES ABSOLUTE AUTO 0.51 K/mm3 (0.16-1.47); MONOCYTES PERCENT AUTO 5 % (4-13); Mean Corpuscular HGB 28.2 pg (26.0-34.0); Mean Corpuscular HGB Conc 34.4 g/dL (31.5-36.5); Mean Corpuscular Volume 82 fL (80-100); Mean Platelet Volume 11.3 fL (9.1-12.4); NEUTROPHILS ABSOLUTE AUTO 9.83 K/mm3 (1.96-9.15); NEUTROPHILS PERCENT AUTO 86 % (41-73); Platelet Count 257 K/mm3 (150-400); RDW Coefficient Variation 13.3 % (11.7-14.2); RDW Standard Deviation 39.8 fL (35.1-46.3); Red Blood Cell Count 5.43 M/mm3 (4.30-5.90); White Blood Cell Count 11.45 K/mm3 (4.00-11.30)
[2019-03-09 17:10] LABS: Calcium, Ionized (POC) 1.06 mmol/L (1.10-1.46); Chloride (POC) 94 mmol/L (98-108); Creatinine (POC) 0.6 mg/dL (0.8-1.3); Glucose (ISTAT POC) 317 mg/dL (70-99); Hemoglobin (POC) 15.6 g/dL (13.5-17.5); Potassium (POC) 4.1 mmol/L (3.5-5.5); Sodium (POC) 130 mmol/L (135-148); Total CO2 (POC) 27 mmol/L (21-32)
[2019-03-09 17:17] LABS: Alanine Aminotransfer (ALT/SGP 35 U/L (12-78); Albumin, Blood 4.6 g/dL (3.4-5.0); Albumin/Globulin Ratio 0.8 (0.8-1.8); Alk Phos 154 U/L (50-136); Anion Gap 14 mmol/L (6-16); Aspartate Aminotrans (AST/SGOT 21 U/L (12-37); Bilirubin, Total 0.5 mg/dL (0.1-1.0); Blood Urea Nitrogen 21 mg/dL (8-24); Bun/Creatinine Ratio 36.8 (12.0-20.0); CO2, Blood 24 mmol/L (21-32); Calcium, Blood 10.3 mg/dL (8.5-10.1); Chloride, Blood 92 mmol/L (98-108); Creatinine, Blood 0.57 mg/dL (0.60-1.20); Globulin, Blood 5.6 g/dL (2.2-4.0); Glomerular Filtration Rate >60 (60-); Glucose, Blood 314 mg/dL (70-99); Potassium, Blood 3.2 mmol/L (3.5-5.5); Sodium, Blood 130 mmol/L (136-145); Total Protein, Blood 10.2 g/dL (6.4-8.2)
[2019-03-09 17:18] LABS: Influenza A Negative (NEGATIVE); Influenza B Negative (NEGATIVE)
[2019-03-09] MEDS ORDERED: OXYC5 PO (18:49)
--- NOTE | 2019-03-09 23:45 | NUR ---
WOUND VAC DRESSING CHANGED AND NEW DEVICE APPLIED. PHOTOS IN CHART.
--- NOTE | 2019-03-10 01:13 | NUR ---
PT ACITVELY VOMITING. PRN ZOFRAN AND REGLAN INEFFECTIVE. CALL PLACED TO DR DIETRICH, NO ANSWER. AWAITING CALL BACK.
[2019-03-10 04:42] LABS: Source, Urine Clean Catch
--- NOTE | 2019-03-10 04:48 | NUR ---
SHIFT SUMMARY PT ARRIVED TO UNIT EARLIER IN SHIFT, REPORTS N/V/D X1 DAY. L STUMP WOUND VAC CHANGED AND PHOTOS TAKEN, SEE CHART. NO DRAINAGE. PT RECIEVED 2L NS FLUID BOLUS PER SEPSIS PROTOCOL FOR LACTIC ACID 2.9. NS NOW RUNNING @ 75 ML/HR. TELE IN PLACE; SINUS TACH 110 AT THIS TIME. 50 MCG IV FENTANYL GIVEN Q4H FOR ABD AND L STUMP PAIN. PT HAS REQUIRED PHENERGAN, ZOFRAN, AND REGLAN AVAIL FOR N/V. HAS BEEN DIFFICULT TO MANAGE. IN CONTACT PRECAUTIONS FOR MRSA IN WOUNDS+NARES AND PENDING GI PANEL. NO STOOL TONIGHT, SPECIMEN STILL NEEDED. NO OTHER CHANGES. WILL CONT TO MONITOR AND PROVIDE CARE UNTIL PRESUMED BY ONCOMING RN.
[2019-03-10 04:50] LABS: Appearance, Urine Clear (Clear); Bilirubin, Urine Neg (Neg); Blood, Urine 2+ (Neg); Color, Urine Yellow (P-Yellow); Glucose Qualitative, Urine 4+ (Neg); Ketones, Urine 1+ (Neg); Leukocyte Esterase, Urine Neg (Neg); Nitrite, Urine Neg (Neg); Protein, Urine 3+ (Neg); Urobilinogen, Urine NORM (Normal)
[2019-03-10 04:56] LABS: Bacteria Few /hpf; Red Blood Cells, Urine 0-2 /hpf (0-2); Squamous Epithelial Cells Not Seen /hpf (Few); White Blood Cells, Urine 0-2 /hpf (0-5)
[2019-03-10 05:40] LABS: Hematocrit 38.9 % (37.0-53.0); Hemoglobin 13.2 g/dL (13.5-17.5); Mean Corpuscular HGB 27.7 pg (26.0-34.0); Mean Corpuscular HGB Conc 33.9 g/dL (31.5-36.5); Mean Corpuscular Volume 82 fL (80-100); Mean Platelet Volume 11.2 fL (9.1-12.4); Platelet Count 280 K/mm3 (150-400); RDW Coefficient Variation 13.3 % (11.7-14.2); RDW Standard Deviation 39.9 fL (35.1-46.3); Red Blood Cell Count 4.76 M/mm3 (4.30-5.90); White Blood Cell Count 9.69 K/mm3 (4.00-11.30)
[2019-03-10 06:03] LABS: Alanine Aminotransfer (ALT/SGP 29 U/L (12-78); Albumin, Blood 3.8 g/dL (3.4-5.0); Albumin/Globulin Ratio 0.8 (0.8-1.8); Alk Phos 126 U/L (50-136); Anion Gap 8 mmol/L (6-16); Aspartate Aminotrans (AST/SGOT 19 U/L (12-37); Bilirubin, Total 0.6 mg/dL (0.1-1.0); Blood Urea Nitrogen 15 mg/dL (8-24); Bun/Creatinine Ratio 25.5 (12.0-20.0); CO2, Blood 25 mmol/L (21-32); Calcium, Blood 8.7 mg/dL (8.5-10.1); Chloride, Blood 98 mmol/L (98-108); Creatinine, Blood 0.59 mg/dL (0.60-1.20); Globulin, Blood 4.9 g/dL (2.2-4.0); Glomerular Filtration Rate >60 (60-); Glucose, Blood 198 mg/dL (70-99); Potassium, Blood 3.5 mmol/L (3.5-5.5); Sodium, Blood 131 mmol/L (136-145); Total Protein, Blood 8.7 g/dL (6.4-8.2)
--- NOTE | 2019-03-10 17:46 | NUR ---
PATIENT CONTINUES TO HAVE PAIN AND NAUSEA ALL SHIFT. MEDICATED PER EMAR. HE IS ALERT AND ORIENTED AND HAS HAD NO ACUTE CHANGES THIS SHIFT. CALL LIGHT WTIHIN REACH.
--- NOTE | 2019-03-10 17:48 | NUR ---
NO ACUTE CHANGES TO PATIENT. PER TECHNICAL SALES REPRESENTATIVES PATIENT HAD RUNS OF AFIB WHICH CAME DOWN AFTER MORNING MEDS. PATIENT HAS HAD NO COMPLAINTS OF DISTRESS . PRESENT AND WAITING RESULTS OF ECHO PRIOR TO DC.
[2019-03-10 19:24] LABS: Campylobacter Sp Not Detected (NOT DETECT)
[2019-03-10 19:25] LABS: Adenovirus F 40/41 Not Detected (NOT DETECT); Astrovirus Not Detected (NOT DETECT); Cryptosporidium Not Detected (NOT DETECT); Cyclospora Cayetanensis Not Detected (NOT DETECT); E. Coli O157 Not Detected (NOT DETECT); Entamoeba Histolytica Not Detected (NOT DETECT); Enteroaggregative E. coli-EAEC Not Detected (NOT DETECT); Enteropathogenic E. coli-EPEC Not Detected (NOT DETECT); Enterotoxigenic E. coli-ETEC Not Detected (NOT DETECT); Giardia Lamblia Not Detected (NOT DETECT); Norovirus GI/GII Not Detected (NOT DETECT); Plesiomonas Shigelloides Not Detected (NOT DETECT); Rotavirus A Not Detected (NOT DETECT); Salmonella Sp Not Detected (NOT DETECT); Sapovirus Not Detected (NOT DETECT); Shiga Toxin-prod E. coli-STEC Not Detected (NOT DETECT); Shigella/Enteroin E. coli-EIEC Not Detected (NOT DETECT); Vibrio Cholerae Not Detected (NOT DETECT); Vibrio Sp Not Detected (NOT DETECT); Yersinia Enterocolitica Not Detected (NOT DETECT)
[2019-03-11 05:57] LABS: BASOPHILS ABSOLUTE AUTO 0.03 K/mm3 (0.00-0.23); BASOPHILS PERCENT AUTO 0 % (0-2); EOSINOPHILS ABSOLUTE AUTO 0.13 K/mm3 (0.00-0.68); EOSINOPHILS PERCENT AUTO 2 % (0-6); Hematocrit 35.7 % (37.0-53.0); IMMATURE GRAN ABSOLUTE AUTO 0.02 K/mm3 (0.00-0.10); IMMATURE GRAN PERCENT AUTO 0 % (0-1); LYMPHOCYTES ABSOLUTE AUTO 2.16 K/mm3 (0.84-5.20); LYMPHOCYTES PERCENT AUTO 29 % (21-46); MONOCYTES ABSOLUTE AUTO 0.68 K/mm3 (0.16-1.47); MONOCYTES PERCENT AUTO 9 % (4-13); Mean Corpuscular HGB 27.5 pg (26.0-34.0); Mean Corpuscular HGB Conc 33.6 g/dL (31.5-36.5); Mean Corpuscular Volume 82 fL (80-100); Mean Platelet Volume 11.1 fL (9.1-12.4); NEUTROPHILS ABSOLUTE AUTO 4.57 K/mm3 (1.96-9.15); NEUTROPHILS PERCENT AUTO 60 % (41-73); Platelet Count 240 K/mm3 (150-400); RDW Coefficient Variation 13.6 % (11.7-14.2); RDW Standard Deviation 40.3 fL (35.1-46.3); Red Blood Cell Count 4.37 M/mm3 (4.30-5.90); White Blood Cell Count 7.59 K/mm3 (4.00-11.30)
[2019-03-11 06:18] LABS: Alanine Aminotransfer (ALT/SGP 29 U/L (12-78); Albumin, Blood 3.4 g/dL (3.4-5.0); Albumin/Globulin Ratio 0.8 (0.8-1.8); Alk Phos 101 U/L (50-136); Anion Gap 9 mmol/L (6-16); Aspartate Aminotrans (AST/SGOT 20 U/L (12-37); Bilirubin, Total 0.3 mg/dL (0.1-1.0); Blood Urea Nitrogen 30 mg/dL (8-24); Bun/Creatinine Ratio 36.3 (12.0-20.0); CO2, Blood 25 mmol/L (21-32); Calcium, Blood 8.7 mg/dL (8.5-10.1); Chloride, Blood 103 mmol/L (98-108); Creatinine, Blood 0.83 mg/dL (0.60-1.20); Globulin, Blood 4.2 g/dL (2.2-4.0); Glomerular Filtration Rate >60 (60-); Glucose, Blood 166 mg/dL (70-99); Magnesium, Blood 1.6 mg/dL (1.6-2.4); Phosphorus, Blood 3.1 mg/dL (2.5-4.9); Potassium, Blood 3.4 mmol/L (3.5-5.5); Sodium, Blood 137 mmol/L (136-145); Total Protein, Blood 7.6 g/dL (6.4-8.2)
--- NOTE | 2019-03-11 08:15 | NUR ---
PT PLEASANT COOP A/O. STATES HARD NITE LAST NITE. WE WILL CONCENTRATE ON PAIN AND NAUSEA CONTROL TODAY. DISCUSSED LONGER ACTING PO PAIN MED VS SHORT ACTING FENTANYL. WILL WORK TO STAY ON TOP OF PAIN. DISCUSSED PHENERGAN HARD ON VEINS. WILL WORK TO KEEP THIS TO A MIN IF CAN. PT APPRECIATES. MED PER EMAR. H/R REG, NO MURMER NOTED. PER TELE NSR WITH BBB RATE 97. LUNGS CLEAR, RESP EASY, UNLABORED. ON R.A. BT X4 HYPERACTIVE. LAST BM TODAY. SOFT. VOIDS IND TO BSC. AT BEDSIDE/ STATAS DOES WELL WITH BSC L BKA . NO OTHER CONCERNS AT THIS TIME. BED IN LOW POSITION, CALL LITE IN REACH, CALLS APPROP
--- NOTE | 2019-03-11 16:23 | NUR ---
DR HARSHAL OCHOA PO, AND CANCEL PHENERGAN.DONE
--- NOTE | 2019-03-11 17:57 | NUR ---
TALKED TO OSWALD. HE STATES DOING MUCH BETTER TODAY. HAVE KEPT UP ON HIS PAIN MEDS ORAL. HAS ONLY NEEDED IV BREAKTHROUGH ONCE. NAUSEA MUCH BETTER. ONLY TX ONCE. OBTAINED PO TO WORK FIRST NOW. PT HOPING TO GO HOME TOMORROW. DR Richards/Ger RAMIREZ. NO OTHER CONCERNS AT THIS TIME. BED IN LOW POSITOIN, CALL LITE IN REACH, CALLS APPROP
--- NOTE | 2019-03-12 06:10 | NUR ---
patient slept 5-6 hours overnight. pain much better controlled with oral percocet every4-5 hours. No nausea medication requested or given. very excited about the possibility of going home today. wound vac still running at 120mmhg with virtually unmeasurable output. wound dressing looks intact. distal end of left residual limb very soft and boggy. patient states MD aware.
[2019-03-12] MEDS ORDERED: BASAGLAR K100 UNIT/1 SC (15:01)
--- NOTE | 2019-03-12 15:46 | NUR ---
DISCHARGE REVIEWED WITH PT. PT VERBALIZED UNDERSTANDING OF MEDS AND INSTRUCT. WOUND VAC CHANGED TO HOME VAC BY STUDENT RECRUITER. IV PULLED INTACT. TELE REMOVED. PT WHEELED TO DOOR BY ESCORT AT 1550
== END 2019-03-12 15:49 | disposition home health service (06) | DRG 387 ==
LOC: ER 16:22 → MEDS 16:23 → ER 19:48 → MEDS 19:48 → ENPENDDIS 03-12 14:54 → MEDS 03-12 15:49
PROVIDERS: Emergency Medicine; Hospitalist; ADMIT Internal Medicine
DX: K51.00 Ulcerative (chronic) pancolitis without complications (principal); K52.9 Noninfective gastroenteritis and colitis, unspecified; E11.42 Type 2 diabetes mellitus with diabetic polyneuropathy; I10 Essential (primary) hypertension; I25.10 Atherosclerotic heart disease of native coronary artery without angina pectoris; E78.5 Hyperlipidemia, unspecified; E87.6 Hypokalemia; E83.52 Hypercalcemia; E11.65 Type 2 diabetes mellitus with hyperglycemia; E66.9 Obesity, unspecified; Z89.512 Acquired absence of left leg below knee; Z79.4 Long term (current) use of insulin; Z86.14 Personal history of Methicillin resistant Staphylococcus aureus infection; Z87.891 Personal history of nicotine dependence
CPT/HCPCS: 0097U; 36415; 74177; 80047; 80053; 81001; 82947; 83605; 83690; 83735; 83880; 84100; 85014; 85025; 85027; 87040; 87804; 93005; 93010; 96361; 96365; 96367; 96372; 96375; 96376; 99284-25; G0378; J0744; J1170; J1650; J2405; J2550; J2765; J3010; J7030; J7131; Q9967

== ENCOUNTER 2019-07-25 06:06 | Emergency (ER) | payer OTHER ==
[~2019-07-25] VITALS: Ht 182.9 cm; Wt 102.1 kg
[~2019-07-25 06:06] MED LIST changes: +OXYC5 PO
[2019-07-25] MEDS ORDERED: TYLECOD3 PO (07:55)
[2019-07-25] MEDS ORDERED: Keflex500 MG PO (07:55)
== END 2019-07-25 08:31 | disposition home or self-care (01) ==
LOC: ER 06:06
DX: S56.126A Laceration of flexor muscle, fascia and tendon of left ring finger at forearm level, initial encounter (principal); E11.40 Type 2 diabetes mellitus with diabetic neuropathy, unspecified; I10 Essential (primary) hypertension; I25.10 Atherosclerotic heart disease of native coronary artery without angina pectoris; E78.5 Hyperlipidemia, unspecified; Z23 Encounter for immunization; Z88.8 Allergy status to other drugs, medicaments and biological substances; Z88.2 Allergy status to sulfonamides; Z88.1 Allergy status to other antibiotic agents; Z79.899 Other long term (current) drug therapy; Z79.4 Long term (current) use of insulin; Z87.891 Personal history of nicotine dependence; W26.0XXA Contact with knife, initial encounter
CPT/HCPCS: 12002; 73120; 90471; 90714; 99283-25

== ENCOUNTER 2019-10-07 10:47 | Emergency (ER) | payer OTHER ==
[~2019-10-07] VITALS: Ht 182.9 cm; Wt 102.1 kg
[~2019-10-07 10:47] MED LIST changes: +Keflex500 MG PO; +TYLECOD3 PO
[2019-10-07] MEDS ORDERED: PREG100 (10:55)
[2019-10-07 11:17] LABS: BASOPHILS ABSOLUTE AUTO 0.05 K/mm3 (0.00-0.23); BASOPHILS PERCENT AUTO 1 % (0-2); EOSINOPHILS PERCENT AUTO 1 % (0-6); Hematocrit 42.3 % (37.0-53.0); Hemoglobin 15.5 g/dL (13.5-17.5); IMMATURE GRAN ABSOLUTE AUTO 0.05 K/mm3 (0.00-0.10); IMMATURE GRAN PERCENT AUTO 1 % (0-1); LYMPHOCYTES ABSOLUTE AUTO 1.39 K/mm3 (0.84-5.20); LYMPHOCYTES PERCENT AUTO 14 % (21-46); MONOCYTES ABSOLUTE AUTO 0.39 K/mm3 (0.16-1.47); MONOCYTES PERCENT AUTO 4 % (4-13); Mean Corpuscular HGB 30.9 pg (26.0-34.0); Mean Corpuscular HGB Conc 36.6 g/dL (31.5-36.5); Mean Corpuscular Volume 84 fL (80-100); Mean Platelet Volume 12.2 fL (9.1-12.4); NEUTROPHILS ABSOLUTE AUTO 7.66 K/mm3 (1.96-9.15); NEUTROPHILS PERCENT AUTO 80 % (41-73); Platelet Count 307 K/mm3 (150-400); RDW Coefficient Variation 12.8 % (11.7-14.2); Red Blood Cell Count 5.01 M/mm3 (4.30-5.90); White Blood Cell Count 9.64 K/mm3 (4.00-11.30)
[2019-10-07 14:15] LABS: Alanine Aminotransfer (ALT/SGP 48 U/L (12-78); Albumin, Blood 3.4 g/dL (3.4-5.0); Albumin/Globulin Ratio 0.7 (0.8-1.8); Alk Phos 141 U/L (50-136); Anion Gap 12 mmol/L (6-16); Aspartate Aminotrans (AST/SGOT 47 U/L (12-37); Bilirubin, Total 0.5 mg/dL (0.1-1.0); Blood Urea Nitrogen 23 mg/dL (8-24); Bun/Creatinine Ratio 39.1 (12.0-20.0); CO2, Blood 20 mmol/L (21-32); Calcium, Blood 9.7 mg/dL (8.5-10.1); Chloride, Blood 97 mmol/L (98-108); Creatinine, Blood 0.59 mg/dL (0.60-1.20); Globulin, Blood 4.8 g/dL (2.2-4.0); Glomerular Filtration Rate >60 (60-); Glucose, Blood 366 mg/dL (70-99); Potassium, Blood 4.9 mmol/L (3.5-5.5); Sodium, Blood 129 mmol/L (136-145); Total Protein, Blood 8.2 g/dL (6.4-8.2)
[2019-10-07] MEDS ORDERED: PROM25 PO (15:47)
[2019-10-07] MEDS ORDERED: DICY20 PO (15:47)
[2019-10-08] MEDS ORDERED: ONDA4 PO (11:30)
[2019-10-08] MEDS ORDERED: OXYC5 PO (11:30)
[2019-11-01] MEDS ORDERED: Roxicodone5 MG PO (13:42)
[2019-11-01] MEDS ORDERED: ONDA4ODT MM (13:42)
[2019-11-17] MEDS ORDERED: CYCL10 PO (17:26)
== END 2019-10-07 15:59 | disposition home or self-care (01) ==
LOC: ER 10:47
PROVIDERS: Emergency Medicine
DX: R10.9 Unspecified abdominal pain (principal); E11.65 Type 2 diabetes mellitus with hyperglycemia; I10 Essential (primary) hypertension; Z87.891 Personal history of nicotine dependence; Z89.512 Acquired absence of left leg below knee; Z88.2 Allergy status to sulfonamides; Z88.8 Allergy status to other drugs, medicaments and biological substances; Z79.899 Other long term (current) drug therapy; Z79.4 Long term (current) use of insulin
CPT/HCPCS: 36415; 80053; 82947; 83690; 85025; 96361; 96374; 96375; 96376; 99284-25; J1170; J1815; J2405; J2550; J7120

== ENCOUNTER 2019-10-08 05:51 | Emergency (ER) | payer OTHER ==
[~2019-10-08] VITALS: Ht 182.9 cm; Wt 102.1 kg
[~2019-10-08 05:51] MED LIST changes: +DICY20 PO; +PREG100; +PROM25 PO
[2019-10-08 07:12] LABS: BASOPHILS ABSOLUTE AUTO 0.02 K/mm3 (0.00-0.23); BASOPHILS PERCENT AUTO 0 % (0-2); EOSINOPHILS ABSOLUTE AUTO 0.02 K/mm3 (0.00-0.68); EOSINOPHILS PERCENT AUTO 0 % (0-6); Hematocrit 43.4 % (37.0-53.0); Hemoglobin 14.9 g/dL (13.5-17.5); IMMATURE GRAN ABSOLUTE AUTO 0.01 K/mm3 (0.00-0.10); IMMATURE GRAN PERCENT AUTO 0 % (0-1); LYMPHOCYTES ABSOLUTE AUTO 0.97 K/mm3 (0.84-5.20); LYMPHOCYTES PERCENT AUTO 13 % (21-46); MONOCYTES ABSOLUTE AUTO 0.33 K/mm3 (0.16-1.47); MONOCYTES PERCENT AUTO 4 % (4-13); Mean Corpuscular HGB 28.8 pg (26.0-34.0); Mean Corpuscular HGB Conc 34.3 g/dL (31.5-36.5); Mean Corpuscular Volume 84 fL (80-100); Mean Platelet Volume 11.4 fL (9.1-12.4); NEUTROPHILS ABSOLUTE AUTO 6.23 K/mm3 (1.96-9.15); NEUTROPHILS PERCENT AUTO 82 % (41-73); Platelet Count 229 K/mm3 (150-400); RDW Coefficient Variation 12.5 % (11.7-14.2); RDW Standard Deviation 38.2 fL (35.1-46.3); Red Blood Cell Count 5.17 M/mm3 (4.30-5.90); White Blood Cell Count 7.58 K/mm3 (4.00-11.30)
[2019-10-08 08:03] LABS: Alanine Aminotransfer (ALT/SGP 44 U/L (12-78); Albumin, Blood 3.6 g/dL (3.4-5.0); Albumin/Globulin Ratio 0.7 (0.8-1.8); Alk Phos 133 U/L (50-136); Anion Gap 16 mmol/L (6-16); Aspartate Aminotrans (AST/SGOT 28 U/L (12-37); Bilirubin, Total 0.5 mg/dL (0.1-1.0); Blood Urea Nitrogen 19 mg/dL (8-24); Bun/Creatinine Ratio 30.5 (12.0-20.0); CO2, Blood 20 mmol/L (21-32); Calcium, Blood 9.9 mg/dL (8.5-10.1); Chloride, Blood 94 mmol/L (98-108); Creatinine, Blood 0.62 mg/dL (0.60-1.20); Globulin, Blood 4.9 g/dL (2.2-4.0); Glomerular Filtration Rate >60 (60-); Glucose, Blood 308 mg/dL (70-99); Potassium, Blood 4.4 mmol/L (3.5-5.5); Sodium, Blood 130 mmol/L (136-145); Total Protein, Blood 8.5 g/dL (6.4-8.2)
[2019-10-08 09:24] LABS: Source, Urine Clean Catch
[2019-10-08 09:29] LABS: Appearance, Urine Clear (Clear); Bilirubin, Urine Neg (Neg); Blood, Urine 1+ (Neg); Color, Urine Yellow (P-Yellow); Glucose Qualitative, Urine 4+ (Neg); Ketones, Urine 3+ (Neg); Leukocyte Esterase, Urine Neg (Neg); Nitrite, Urine Neg (Neg); Protein, Urine 3+ (Neg); Urobilinogen, Urine NORM (Normal); pH, Urine 6.5 (5.0-8.0)
[2019-10-08 09:40] LABS: Bacteria Rare /hpf; Mucus Light (0-Heavy); Red Blood Cells, Urine 0-2 /hpf (0-2); Squamous Epithelial Cells Rare /hpf (Few); White Blood Cells, Urine 0-2 /hpf (0-5)
[2019-10-08] MEDS ORDERED: ONDA4 PO (11:30)
[2019-10-08] MEDS ORDERED: OXYC5 PO (11:30)
[2019-11-01] MEDS ORDERED: ONDA4ODT MM (13:42)
[2019-11-01] MEDS ORDERED: Roxicodone5 MG PO (13:42)
[2019-11-17] MEDS ORDERED: CYCL10 PO (17:26)
== END 2019-10-08 12:01 | disposition home or self-care (01) ==
LOC: ER 05:51
PROVIDERS: Emergency Medicine
DX: R10.9 Unspecified abdominal pain (principal); R11.10 Vomiting, unspecified; I10 Essential (primary) hypertension; E11.9 Type 2 diabetes mellitus without complications; Z87.891 Personal history of nicotine dependence; Z89.512 Acquired absence of left leg below knee; Z88.2 Allergy status to sulfonamides; Z88.8 Allergy status to other drugs, medicaments and biological substances; Z79.899 Other long term (current) drug therapy; Z79.4 Long term (current) use of insulin
CPT/HCPCS: 74177; 80053; 81001; 82010; 82800; 82947; 83690; 85025; 96361; 96374-59; 96375; 96376; 99284-25; C9113; J1170; J2405; J2550; J7120; Q9967

== ENCOUNTER 2019-10-18 09:14 | Emergency (ER) | payer OTHER ==
[~2019-10-18] VITALS: Ht 182.9 cm; Wt 102.1 kg
[~2019-10-18 09:14] MED LIST changes: +ONDA4 PO
[2019-10-18 10:09] LABS: BASOPHILS ABSOLUTE AUTO 0.03 K/mm3 (0.00-0.23); BASOPHILS PERCENT AUTO 0 % (0-2); EOSINOPHILS ABSOLUTE AUTO 0.08 K/mm3 (0.00-0.68); EOSINOPHILS PERCENT AUTO 1 % (0-6); Hematocrit 39.4 % (37.0-53.0); Hemoglobin 13.7 g/dL (13.5-17.5); IMMATURE GRAN ABSOLUTE AUTO 0.03 K/mm3 (0.00-0.10); IMMATURE GRAN PERCENT AUTO 0 % (0-1); LYMPHOCYTES ABSOLUTE AUTO 1.18 K/mm3 (0.84-5.20); LYMPHOCYTES PERCENT AUTO 18 % (21-46); MONOCYTES ABSOLUTE AUTO 0.36 K/mm3 (0.16-1.47); MONOCYTES PERCENT AUTO 5 % (4-13); Mean Corpuscular HGB Conc 34.8 g/dL (31.5-36.5); Mean Corpuscular Volume 83 fL (80-100); NEUTROPHILS ABSOLUTE AUTO 5.01 K/mm3 (1.96-9.15); NEUTROPHILS PERCENT AUTO 75 % (41-73); RDW Coefficient Variation 12.5 % (11.7-14.2); RDW Standard Deviation 38.2 fL (35.1-46.3); Red Blood Cell Count 4.73 M/mm3 (4.30-5.90); White Blood Cell Count 6.69 K/mm3 (4.00-11.30)
[2019-10-18 10:26] LABS: Mean Platelet Volume 11.7 fL (9.1-12.4); Platelet Count 188 K/mm3 (150-400)
[2019-10-18 10:30] LABS: Albumin/Globulin Ratio 0.7 (0.8-1.8); Alk Phos 107 U/L (50-136); Anion Gap 11 mmol/L (6-16); Aspartate Aminotrans (AST/SGOT 22 U/L (12-37); Bilirubin, Total 0.7 mg/dL (0.1-1.0); Blood Urea Nitrogen 15 mg/dL (8-24); Bun/Creatinine Ratio 28.6 (12.0-20.0); CO2, Blood 22 mmol/L (21-32); Calcium, Blood 8.3 mg/dL (8.5-10.1); Chloride, Blood 95 mmol/L (98-108); Creatinine, Blood 0.53 mg/dL (0.60-1.20); Globulin, Blood 4.2 g/dL (2.2-4.0); Glomerular Filtration Rate >60 (60-); Glucose, Blood 281 mg/dL (70-99); Potassium, Blood 3.5 mmol/L (3.5-5.5); Sodium, Blood 128 mmol/L (136-145); Total Protein, Blood 7.2 g/dL (6.4-8.2)
[2019-10-18 10:50] LABS: Alanine Aminotransfer (ALT/SGP 27 U/L (12-78)
[2019-10-18] MEDS ORDERED: PROM25 PO (12:17)
[2019-11-01] MEDS ORDERED: ONDA4ODT MM (13:42)
[2019-11-01] MEDS ORDERED: Roxicodone5 MG PO (13:42)
[2019-11-17] MEDS ORDERED: CYCL10 PO (17:26)
== END 2019-10-18 12:24 | disposition home or self-care (01) ==
LOC: ER 09:14
PROVIDERS: Emergency Medicine
DX: K42.9 Umbilical hernia without obstruction or gangrene (principal); E11.9 Type 2 diabetes mellitus without complications; Z88.2 Allergy status to sulfonamides; Z88.8 Allergy status to other drugs, medicaments and biological substances; Z79.4 Long term (current) use of insulin; Z79.899 Other long term (current) drug therapy; I10 Essential (primary) hypertension; I25.10 Atherosclerotic heart disease of native coronary artery without angina pectoris; E78.5 Hyperlipidemia, unspecified; Z87.891 Personal history of nicotine dependence; Z89.512 Acquired absence of left leg below knee
CPT/HCPCS: 80053; 83690; 85025; 96361; 96374; 96375; 96376; 99284-25; J1170; J2405; J7030

== ENCOUNTER 2019-12-20 14:19 | Emergency (ER) | payer OTHER ==
[~2019-12-20] VITALS: Ht 182.9 cm; Wt 91.2 kg
[~2019-12-20 14:19] MED LIST changes: +ONDA4ODT MM; +Roxicodone5 MG PO
[2019-12-20 14:50] LABS: BASOPHILS ABSOLUTE AUTO 0.06 K/mm3 (0.00-0.23); BASOPHILS PERCENT AUTO 1 % (0-2); EOSINOPHILS ABSOLUTE AUTO 0.44 K/mm3 (0.00-0.68); EOSINOPHILS PERCENT AUTO 7 % (0-6); Hematocrit 25.3 % (37.0-53.0); IMMATURE GRAN ABSOLUTE AUTO 0.05 K/mm3 (0.00-0.10); IMMATURE GRAN PERCENT AUTO 1 % (0-1); LYMPHOCYTES ABSOLUTE AUTO 1.67 K/mm3 (0.84-5.20); LYMPHOCYTES PERCENT AUTO 26 % (21-46); MONOCYTES ABSOLUTE AUTO 0.63 K/mm3 (0.16-1.47); MONOCYTES PERCENT AUTO 10 % (4-13); Mean Corpuscular HGB 27.4 pg (26.0-34.0); Mean Corpuscular HGB Conc 31.6 g/dL (31.5-36.5); Mean Corpuscular Volume 87 fL (80-100); Mean Platelet Volume 10.5 fL (9.1-12.4); NEUTROPHILS ABSOLUTE AUTO 3.67 K/mm3 (1.96-9.15); NEUTROPHILS PERCENT AUTO 56 % (41-73); Platelet Count 295 K/mm3 (150-400); RDW Coefficient Variation 13.2 % (11.7-14.2); RDW Standard Deviation 41.9 fL (35.1-46.3); Red Blood Cell Count 2.92 M/mm3 (4.30-5.90); White Blood Cell Count 6.52 K/mm3 (4.00-11.30)
[2019-12-20 15:18] LABS: Alanine Aminotransfer (ALT/SGP <6 U/L (12-78); Albumin/Globulin Ratio 0.5 (0.8-1.8); Alk Phos 176 U/L (50-136); Anion Gap 7 mmol/L (6-16); Aspartate Aminotrans (AST/SGOT 9 U/L (12-37); Bilirubin, Total 0.1 mg/dL (0.1-1.0); Blood Urea Nitrogen 17 mg/dL (8-24); Bun/Creatinine Ratio 31.9 (12.0-20.0); CO2, Blood 23 mmol/L (21-32); Calcium, Blood 9.5 mg/dL (8.5-10.1); Chloride, Blood 108 mmol/L (98-108); Creatinine, Blood 0.53 mg/dL (0.60-1.20); Globulin, Blood 5.6 g/dL (2.2-4.0); Glomerular Filtration Rate >60 (60-); Glucose, Blood 136 mg/dL (70-99); Potassium, Blood 3.8 mmol/L (3.5-5.5); Sodium, Blood 138 mmol/L (136-145); Total Protein, Blood 8.6 g/dL (6.4-8.2)
[2019-12-20] MEDS ORDERED: FERROUS SULFAT325 M3 PO (15:27)
== END 2019-12-20 17:14 | disposition home or self-care (01) ==
LOC: ER 14:19
PROVIDERS: Emergency Medicine
DX: D64.9 Anemia, unspecified (principal); E11.9 Type 2 diabetes mellitus without complications; I10 Essential (primary) hypertension; Z89.512 Acquired absence of left leg below knee; Z88.8 Allergy status to other drugs, medicaments and biological substances; Z79.4 Long term (current) use of insulin; Z79.899 Other long term (current) drug therapy; Z88.2 Allergy status to sulfonamides; Z87.891 Personal history of nicotine dependence
CPT/HCPCS: 80053; 85025; 93005; 93010; 99284-25

== ENCOUNTER 2020-02-04 00:45 | Day surgery (SDC) | payer OTHER ==
[~2020-02-04 00:45] MED LIST changes: +ACET500 PO; +BISA10S PR; +CEFAZOLIN SODIUM1 G1 IV; +DIAZ10 PO; +DIAZ5 PO; +DOCU100 PO; +DULCOLAX400 MG/5 M PO; +FAMO40 PO; +FERROUS SULFAT325 M3 PO; +Florastor250 MG PO; +HUMALOG KW100 UNIT/1 SC; -Humalog100 UNIT/1 SC; +LIDO700A20 TOP; +MENTHOL TP; +MIRALAX17 GM PO; -PREG100; +PREG150 PO; +RIFA300 PO; +Vitamin D2000 UNIT PO
[2020-02-04] MEDS ORDERED: JARDIANCE10 MG PO (17:48)
[2020-02-04] MEDS ORDERED: ZOLP5 PO (17:50)
[2020-02-04] MEDS ORDERED: METO25 PO (17:52)
== END 2020-02-04 11:00 | disposition home or self-care (01) ==
LOC: ATC 00:45
DX: R78.81 Bacteremia (principal); Z79.2 Long term (current) use of antibiotics

== ENCOUNTER 2020-04-17 00:30 | Day surgery (SDC) | payer OTHER ==
[~2020-04-17 00:30] MED LIST changes: +JARDIANCE10 MG PO; +METO25 PO; +ZOLP5 PO
== END 2020-04-17 22:38 | disposition home or self-care (01) ==
LOC: WOUND 00:30
DX: E11.69 Type 2 diabetes mellitus with other specified complication (principal); M86.21 Subacute osteomyelitis, shoulder; E11.40 Type 2 diabetes mellitus with diabetic neuropathy, unspecified; I25.10 Atherosclerotic heart disease of native coronary artery without angina pectoris; I10 Essential (primary) hypertension; I25.2 Old myocardial infarction; Z20.822 Contact with and (suspected) exposure to COVID-19; Z88.2 Allergy status to sulfonamides; Z89.422 Acquired absence of other left toe(s); Z88.8 Allergy status to other drugs, medicaments and biological substances; Z88.1 Allergy status to other antibiotic agents; Z87.891 Personal history of nicotine dependence; Z79.4 Long term (current) use of insulin; Z79.899 Other long term (current) drug therapy
CPT/HCPCS: G0463

== ENCOUNTER 2020-04-26 00:18 | Day surgery (SDC) | payer OTHER | END 2020-04-26 22:35 | disposition home or self-care (01) | LOC: WOUND 00:18 | DX: M00.812 Arthritis due to other bacteria, left shoulder (principal); E11.622 Type 2 diabetes mellitus with other skin ulcer; E11.69 Type 2 diabetes mellitus with other specified complication; M86.9 Osteomyelitis, unspecified; L98.495 Non-pressure chronic ulcer of skin of other sites with muscle involvement without evidence of necrosis | CPT/HCPCS: G0463 ==

== ENCOUNTER 2020-05-03 00:13 | Day surgery (SDC) | payer OTHER ==
[2020-05-04] MEDS ORDERED: ONDA4ODT MM (14:26)
[2020-05-04] MEDS ORDERED: LOPE2C PO (15:08)
== END 2020-05-03 23:45 | disposition home or self-care (01) ==
LOC: WOUND 00:13
DX: M00.812 Arthritis due to other bacteria, left shoulder (principal); E11.622 Type 2 diabetes mellitus with other skin ulcer; L98.499 Non-pressure chronic ulcer of skin of other sites with unspecified severity; I10 Essential (primary) hypertension; Z79.4 Long term (current) use of insulin

== ENCOUNTER 2020-05-04 11:09 | Emergency (ER) | payer OTHER ==
[~2020-05-04] VITALS: Ht 182.9 cm; Wt 95.2 kg
[2020-05-04 11:49] LABS: BASOPHILS ABSOLUTE AUTO 0.04 K/mm3 (0.00-0.23); BASOPHILS PERCENT AUTO 0 % (0-2); EOSINOPHILS ABSOLUTE AUTO 0.01 K/mm3 (0.00-0.68); EOSINOPHILS PERCENT AUTO 0 % (0-6); Hematocrit 42.1 % (37.0-53.0); Hemoglobin 13.7 g/dL (13.5-17.5); IMMATURE GRAN ABSOLUTE AUTO 0.05 K/mm3 (0.00-0.10); IMMATURE GRAN PERCENT AUTO 0 % (0-1); LYMPHOCYTES ABSOLUTE AUTO 1.11 K/mm3 (0.84-5.20); LYMPHOCYTES PERCENT AUTO 10 % (21-46); MONOCYTES ABSOLUTE AUTO 0.57 K/mm3 (0.16-1.47); MONOCYTES PERCENT AUTO 5 % (4-13); Mean Corpuscular HGB 26.8 pg (26.0-34.0); Mean Corpuscular HGB Conc 32.5 g/dL (31.5-36.5); Mean Corpuscular Volume 82 fL (80-100); Mean Platelet Volume 11.1 fL (9.1-12.4); NEUTROPHILS PERCENT AUTO 85 % (41-73); Platelet Count 304 K/mm3 (150-400); RDW Standard Deviation 38.7 fL (35.1-46.3); Red Blood Cell Count 5.11 M/mm3 (4.30-5.90); White Blood Cell Count 11.68 K/mm3 (4.00-11.30)
[2020-05-04 12:20] LABS: Alanine Aminotransfer (ALT/SGP 34 U/L (12-78); Albumin, Blood 3.9 g/dL (3.4-5.0); Albumin/Globulin Ratio 0.7 (0.8-1.8); Alk Phos 139 U/L (50-136); Anion Gap 16 mmol/L (6-16); Aspartate Aminotrans (AST/SGOT 35 U/L (12-37); Bilirubin, Total 0.6 mg/dL (0.1-1.0); Blood Urea Nitrogen 22 mg/dL (8-24); Bun/Creatinine Ratio 41.6 (12.0-20.0); CO2, Blood 18 mmol/L (21-32); Calcium, Blood 9.4 mg/dL (8.5-10.1); Chloride, Blood 97 mmol/L (98-108); Creatinine, Blood 0.53 mg/dL (0.60-1.20); Globulin, Blood 5.4 g/dL (2.2-4.0); Glomerular Filtration Rate >60 (60-); Glucose, Blood 360 mg/dL (70-99); Potassium, Blood 3.7 mmol/L (3.5-5.5); Sodium, Blood 131 mmol/L (136-145); Total Protein, Blood 9.3 g/dL (6.4-8.2)
[2020-05-04] MEDS ORDERED: ONDA4ODT MM (14:26)
[2020-05-04] MEDS ORDERED: LOPE2C PO (15:08)
== END 2020-05-04 15:25 | disposition home or self-care (01) ==
LOC: ER 11:09
PROVIDERS: Emergency Medicine
DX: K52.9 Noninfective gastroenteritis and colitis, unspecified (principal); E78.5 Hyperlipidemia, unspecified; I10 Essential (primary) hypertension; K29.70 Gastritis, unspecified, without bleeding; E11.65 Type 2 diabetes mellitus with hyperglycemia; Z79.4 Long term (current) use of insulin; Z79.899 Other long term (current) drug therapy; Z88.5 Allergy status to narcotic agent; Z88.2 Allergy status to sulfonamides; Z88.1 Allergy status to other antibiotic agents; Z87.442 Personal history of urinary calculi; Z95.5 Presence of coronary angioplasty implant and graft
CPT/HCPCS: 36415; 80053; 82947; 83690; 85025; 96361; 96374; 96375; 99284-25; A9270; J0780; J1200; J1790; J3010; J7030

== ENCOUNTER 2020-05-05 02:20 | Day surgery (SDC) | payer OTHER ==
[~2020-05-05 02:20] MED LIST changes: +LOPE2C PO
== END 2020-05-05 23:45 | disposition home or self-care (01) ==
LOC: WOUND 02:20
DX: L98.499 Non-pressure chronic ulcer of skin of other sites with unspecified severity (principal); M00.812 Arthritis due to other bacteria, left shoulder

== ENCOUNTER 2020-05-12 02:33 | Day surgery (SDC) | payer OTHER | END 2020-05-12 22:41 | disposition home or self-care (01) | LOC: WOUND 02:33 | DX: M00.812 Arthritis due to other bacteria, left shoulder (principal); E11.622 Type 2 diabetes mellitus with other skin ulcer; L98.499 Non-pressure chronic ulcer of skin of other sites with unspecified severity; I10 Essential (primary) hypertension; Z79.4 Long term (current) use of insulin ==

== ENCOUNTER 2020-05-15 08:57 | Day surgery (SDC) | payer OTHER | END 2020-05-15 23:54 | disposition home or self-care (01) | LOC: WOUND 08:57 | DX: M00.812 Arthritis due to other bacteria, left shoulder (principal); L98.499 Non-pressure chronic ulcer of skin of other sites with unspecified severity ==

== ENCOUNTER 2020-05-19 00:51 | Day surgery (SDC) | payer OTHER | END 2020-05-19 23:50 | disposition home or self-care (01) | LOC: WOUND 00:51 | DX: M00.812 Arthritis due to other bacteria, left shoulder (principal); L98.495 Non-pressure chronic ulcer of skin of other sites with muscle involvement without evidence of necrosis; B96.89 Other specified bacterial agents as the cause of diseases classified elsewhere; E11.69 Type 2 diabetes mellitus with other specified complication; E11.42 Type 2 diabetes mellitus with diabetic polyneuropathy; M86.8X1 Other osteomyelitis, shoulder; E78.5 Hyperlipidemia, unspecified; I10 Essential (primary) hypertension ==

== ENCOUNTER 2020-05-22 08:46 | Day surgery (SDC) | payer OTHER | END 2020-05-22 22:52 | disposition home or self-care (01) | LOC: WOUND 08:46 | DX: M00.812 Arthritis due to other bacteria, left shoulder (principal); E11.622 Type 2 diabetes mellitus with other skin ulcer; L98.499 Non-pressure chronic ulcer of skin of other sites with unspecified severity; I10 Essential (primary) hypertension; E78.5 Hyperlipidemia, unspecified; Z79.4 Long term (current) use of insulin ==

== ENCOUNTER 2020-05-24 00:30 | Day surgery (SDC) | payer OTHER | END 2020-05-24 22:46 | disposition home or self-care (01) | LOC: WOUND 00:30 | DX: L98.495 Non-pressure chronic ulcer of skin of other sites with muscle involvement without evidence of necrosis (principal); M00.9 Pyogenic arthritis, unspecified; E11.69 Type 2 diabetes mellitus with other specified complication; M86.8X8 Other osteomyelitis, other site; E11.42 Type 2 diabetes mellitus with diabetic polyneuropathy; I10 Essential (primary) hypertension; E78.5 Hyperlipidemia, unspecified | CPT/HCPCS: A9270 ==

== ENCOUNTER 2020-05-26 01:59 | Day surgery (SDC) | payer OTHER | END 2020-05-26 22:41 | disposition home or self-care (01) | LOC: WOUND 01:59 | DX: L98.499 Non-pressure chronic ulcer of skin of other sites with unspecified severity (principal) ==

== ENCOUNTER 2020-05-29 01:10 | Day surgery (SDC) | payer OTHER | END 2020-05-29 22:39 | disposition home or self-care (01) | LOC: WOUND 01:10 | DX: S41.002A Unspecified open wound of left shoulder, initial encounter (principal) ==

== ENCOUNTER 2020-05-31 00:15 | Day surgery (SDC) | payer OTHER | END 2020-05-31 22:37 | disposition home or self-care (01) | LOC: WOUND 00:15 | DX: L98.495 Non-pressure chronic ulcer of skin of other sites with muscle involvement without evidence of necrosis (principal); M00.9 Pyogenic arthritis, unspecified; R22.1 Localized swelling, mass and lump, neck; E11.42 Type 2 diabetes mellitus with diabetic polyneuropathy; E78.5 Hyperlipidemia, unspecified; I10 Essential (primary) hypertension | CPT/HCPCS: A9270 ==

== ENCOUNTER 2020-06-02 01:12 | Day surgery (SDC) | payer OTHER | END 2020-06-02 22:43 | disposition home or self-care (01) | LOC: WOUND 01:12 | DX: L98.499 Non-pressure chronic ulcer of skin of other sites with unspecified severity (principal); M00.812 Arthritis due to other bacteria, left shoulder; R22.1 Localized swelling, mass and lump, neck ==

== ENCOUNTER 2020-06-05 01:28 | Day surgery (SDC) | payer OTHER | END 2020-06-05 23:03 | disposition home or self-care (01) | LOC: WOUND 01:28 | DX: E11.622 Type 2 diabetes mellitus with other skin ulcer (principal); L98.495 Non-pressure chronic ulcer of skin of other sites with muscle involvement without evidence of necrosis; M00.812 Arthritis due to other bacteria, left shoulder; I10 Essential (primary) hypertension; E78.5 Hyperlipidemia, unspecified; E11.42 Type 2 diabetes mellitus with diabetic polyneuropathy; Z79.4 Long term (current) use of insulin ==

== ENCOUNTER 2020-06-08 00:24 | Day surgery (SDC) | payer OTHER | END 2020-06-08 22:54 | disposition home or self-care (01) | LOC: WOUND 00:24 | DX: E11.622 Type 2 diabetes mellitus with other skin ulcer (principal); L98.495 Non-pressure chronic ulcer of skin of other sites with muscle involvement without evidence of necrosis; M00.812 Arthritis due to other bacteria, left shoulder; E11.40 Type 2 diabetes mellitus with diabetic neuropathy, unspecified; I10 Essential (primary) hypertension; Z79.4 Long term (current) use of insulin ==

== ENCOUNTER 2020-06-12 00:10 | Day surgery (SDC) | payer OTHER | END 2020-06-12 22:57 | disposition home or self-care (01) | LOC: WOUND 00:10 | DX: L98.499 Non-pressure chronic ulcer of skin of other sites with unspecified severity (principal) ==

== ENCOUNTER 2020-06-14 01:30 | Day surgery (SDC) | payer OTHER | END 2020-06-14 22:40 | disposition home or self-care (01) | LOC: WOUND 01:30 | DX: E11.622 Type 2 diabetes mellitus with other skin ulcer (principal); L98.492 Non-pressure chronic ulcer of skin of other sites with fat layer exposed; M00.812 Arthritis due to other bacteria, left shoulder; E11.42 Type 2 diabetes mellitus with diabetic polyneuropathy; E78.5 Hyperlipidemia, unspecified; I10 Essential (primary) hypertension | CPT/HCPCS: G0463 ==

== ENCOUNTER 2020-06-16 00:40 | Day surgery (SDC) | payer OTHER | END 2020-06-16 22:40 | disposition home or self-care (01) | LOC: WOUND 00:40 | DX: L98.499 Non-pressure chronic ulcer of skin of other sites with unspecified severity (principal); M00.812 Arthritis due to other bacteria, left shoulder | CPT/HCPCS: G0463 ==

== ENCOUNTER 2020-06-19 17:45 | Emergency (ER) | payer OTHER ==
[~2020-06-19] VITALS: Ht 182.9 cm; Wt 95.2 kg
[2020-06-19 18:24] LABS: BASOPHILS ABSOLUTE AUTO 0.02 K/mm3 (0.00-0.23); BASOPHILS PERCENT AUTO 0 % (0-2); EOSINOPHILS ABSOLUTE AUTO 0.01 K/mm3 (0.00-0.68); EOSINOPHILS PERCENT AUTO 0 % (0-6); Hematocrit 39.4 % (37.0-53.0); Hemoglobin 13.2 g/dL (13.5-17.5); IMMATURE GRAN ABSOLUTE AUTO 0.04 K/mm3 (0.00-0.10); IMMATURE GRAN PERCENT AUTO 0 % (0-1); LYMPHOCYTES ABSOLUTE AUTO 1.59 K/mm3 (0.84-5.20); LYMPHOCYTES PERCENT AUTO 16 % (21-46); MONOCYTES ABSOLUTE AUTO 0.49 K/mm3 (0.16-1.47); MONOCYTES PERCENT AUTO 5 % (4-13); Mean Corpuscular HGB 26.3 pg (26.0-34.0); Mean Corpuscular HGB Conc 33.5 g/dL (31.5-36.5); Mean Corpuscular Volume 79 fL (80-100); Mean Platelet Volume 10.8 fL (9.1-12.4); NEUTROPHILS ABSOLUTE AUTO 7.88 K/mm3 (1.96-9.15); NEUTROPHILS PERCENT AUTO 79 % (41-73); Platelet Count 405 K/mm3 (150-400); RDW Coefficient Variation 12.4 % (11.7-14.2); RDW Standard Deviation 35.1 fL (35.1-46.3); Red Blood Cell Count 5.01 M/mm3 (4.30-5.90); White Blood Cell Count 10.03 K/mm3 (4.00-11.30)
[2020-06-19 18:40] LABS: Alanine Aminotransfer (ALT/SGP 24 U/L (12-78); Albumin, Blood 3.4 g/dL (3.4-5.0); Albumin/Globulin Ratio 0.6 (0.8-1.8); Alk Phos 146 U/L (50-136); Anion Gap 15 mmol/L (6-16); Aspartate Aminotrans (AST/SGOT 25 U/L (12-37); Bilirubin, Total 0.4 mg/dL (0.1-1.0); Blood Urea Nitrogen 30 mg/dL (8-24); Bun/Creatinine Ratio 43.7 (12.0-20.0); CO2, Blood 23 mmol/L (21-32); Calcium, Blood 9.9 mg/dL (8.5-10.1); Chloride, Blood 91 mmol/L (98-108); Creatinine, Blood 0.69 mg/dL (0.60-1.20); Globulin, Blood 5.8 g/dL (2.2-4.0); Glomerular Filtration Rate >60 (60-); Glucose, Blood 213 mg/dL (70-99); Magnesium, Blood 1.9 mg/dL (1.6-2.4); Potassium, Blood 4.1 mmol/L (3.5-5.5); Sodium, Blood 129 mmol/L (136-145); Total Protein, Blood 9.2 g/dL (6.4-8.2); Troponin I <0.015 ng/mL (0.000-0.040)
[2020-06-19 20:04] LABS: Source, Urine Clean Catch
[2020-06-19 20:06] LABS: Bilirubin, Urine Neg (Neg); Blood, Urine 1+ (Neg); Glucose Qualitative, Urine 4+ (Neg); Ketones, Urine 4+ (Neg); Leukocyte Esterase, Urine Neg (Neg); Nitrite, Urine Neg (Neg); Protein, Urine 3+ (Neg); Urobilinogen, Urine NORM (Normal)
[2020-06-19 20:15] LABS: Appearance, Urine Clear (Clear); Color, Urine Yellow (P-Yellow)
[2020-06-19 20:16] LABS: Bacteria Few /hpf; Red Blood Cells, Urine 0-2 /hpf (0-2); Squamous Epithelial Cells Few /hpf (Few); White Blood Cells, Urine 0-2 /hpf (0-5)
[2020-06-19] MEDS ORDERED: PROM25 PO (22:16)
== END 2020-06-19 22:30 | disposition home or self-care (01) ==
LOC: ER 17:45
PROVIDERS: Emergency Medicine
DX: E86.0 Dehydration (principal); R11.2 Nausea with vomiting, unspecified; E11.9 Type 2 diabetes mellitus without complications; I10 Essential (primary) hypertension; E78.5 Hyperlipidemia, unspecified; Z88.8 Allergy status to other drugs, medicaments and biological substances; Z87.891 Personal history of nicotine dependence; Z79.899 Other long term (current) drug therapy
CPT/HCPCS: 80053; 81001; 83690; 83735; 84484; 85025; 93005; 93010; 96361; 96374; 96375; 96376; 99284-25; A9270; J2550; J2765; J7120

== ENCOUNTER 2020-06-21 00:22 | Day surgery (SDC) | payer OTHER | END 2020-06-21 22:36 | disposition home or self-care (01) | LOC: WOUND 00:22 | DX: L76.82 Other postprocedural complications of skin and subcutaneous tissue (principal); L98.495 Non-pressure chronic ulcer of skin of other sites with muscle involvement without evidence of necrosis; M00.812 Arthritis due to other bacteria, left shoulder; E11.42 Type 2 diabetes mellitus with diabetic polyneuropathy; I10 Essential (primary) hypertension; E78.5 Hyperlipidemia, unspecified ==

== ENCOUNTER 2020-06-28 01:23 | Day surgery (SDC) | payer OTHER | END 2020-06-28 22:48 | disposition home or self-care (01) | LOC: WOUND 01:23 | DX: L98.495 Non-pressure chronic ulcer of skin of other sites with muscle involvement without evidence of necrosis (principal); M00.812 Arthritis due to other bacteria, left shoulder; B96.89 Other specified bacterial agents as the cause of diseases classified elsewhere; E78.5 Hyperlipidemia, unspecified; I10 Essential (primary) hypertension; E11.42 Type 2 diabetes mellitus with diabetic polyneuropathy | CPT/HCPCS: A9270; G0463 ==

== ENCOUNTER 2020-07-05 00:32 | Day surgery (SDC) | payer OTHER | END 2020-07-05 22:41 | disposition home or self-care (01) | LOC: WOUND 00:32 | DX: L98.499 Non-pressure chronic ulcer of skin of other sites with unspecified severity (principal); M00.812 Arthritis due to other bacteria, left shoulder; I10 Essential (primary) hypertension; E78.5 Hyperlipidemia, unspecified; E11.42 Type 2 diabetes mellitus with diabetic polyneuropathy | CPT/HCPCS: G0463 ==

== ENCOUNTER 2020-07-12 00:13 | Day surgery (SDC) | payer OTHER | END 2020-07-12 22:45 | disposition home or self-care (01) | LOC: WOUND 00:13 | DX: M00.812 Arthritis due to other bacteria, left shoulder (principal); L98.499 Non-pressure chronic ulcer of skin of other sites with unspecified severity; E11.42 Type 2 diabetes mellitus with diabetic polyneuropathy; E78.5 Hyperlipidemia, unspecified; I10 Essential (primary) hypertension | CPT/HCPCS: A9270; G0463 ==

== ENCOUNTER 2020-10-24 08:11 | Day surgery (SDC) | payer OTHER ==
[~2020-10-24] VITALS: Ht 182.9 cm; Wt 100.6 kg
--- NOTE | 2020-10-24 08:50 | NUR ---
PT INTO SDS VIA WC. History, Chart, Medications and Allergies reviewed before start of procedure. Lungs clear T/O to Auscultation. Patient confirms NPO status and agrees with scheduled surgery. Pre-Op teaching done. Pt verbalizes understanding. Patient States Post-Procedure ride home has been arranged.
--- NOTE | 2020-10-24 08:53 | NUR ---
PT STATES HE HAS BEEN CLEARED BY "INFECTION CONTROL DOCTOR" OR MSRA. STATES HE WAS TESTED TWICE IN HOSPITAL AND CAME BACK NEGATIVE.
--- NOTE | 2020-10-24 09:28 | NUR ---
10/24/20 0928 Beverly Hdez History, Chart, Medications and Allergies reviewed before start of procedure.PATIENT DETERMINED TO BE ASA APPROPRIATE FOR PROPOFOL SEDATION PRIOR TO START OF PROCEDURE BY .MONITOR INTACT WITH CONTINUOUS PULSE OXIMETRY AND INTERMITTENT BP.3-LEAD EKG REVIEWED WITH PHYSICIAN PRIOR TO START OF PROCEDURE.O2 VIA N/C INTACT THROUGHOUT SEDATION/PROCEDURE. CO2 MONITORING T/O PROCEDURE.
--- NOTE | 2020-10-24 10:06 | NUR ---
Discharge instructions reviewed with patient. Patient verbalizes understanding. Copy given to patient to take home. Patient States Post-Procedure ride home has been arranged. Discharged via wheelchair to private car for ride home. ALL BELONINGS RETURNED TO PATIENT. PT ABLE TO TRANSFER SELF TO W/C.
== END 2020-10-24 10:09 | disposition home or self-care (01) ==
LOC: ORSCMMR 08:11 → ORD 09:00 → ORSCMMR 10:09
PROVIDERS: Internal Medicine Gastroenterology
PROC: 0DBP8ZX Excision of Rectum, Via Natural or Artificial Opening Endoscopic, Diagnostic (ICD-10-PCS; principal; 2020-10-24 09:00)
DX: Z12.11 Encounter for screening for malignant neoplasm of colon (principal); K62.1 Rectal polyp; E78.1 Pure hyperglyceridemia; I25.10 Atherosclerotic heart disease of native coronary artery without angina pectoris; E11.9 Type 2 diabetes mellitus without complications; I10 Essential (primary) hypertension; Z87.891 Personal history of nicotine dependence; Z79.84 Long term (current) use of oral hypoglycemic drugs; Z79.899 Other long term (current) drug therapy
CPT/HCPCS: 82947; 88305; J2704; J7120

== ENCOUNTER → 2021-08-12 | Outpatient (CLI) | payer OTHER ==
[2021-08-12 12:31] LABS: Albumin/Globulin Ratio 1.1 (0.8-1.8); Bilirubin, Total 0.4 mg/dL (0.1-1.0); Bun/Creatinine Ratio 20.6 (12.0-20.0); Calcium, Blood 8.7 mg/dL (8.5-10.1); Creatinine, Blood 0.97 mg/dL (0.60-1.20); Globulin, Blood 3.6 g/dL (2.2-4.0); Potassium, Blood 4.4 mmol/L (3.5-5.5); Total Protein, Blood 7.6 g/dL (6.4-8.2)
== END ==
LOC: LAB SHORT 12:14
PROVIDERS: Internal Medicine Endocrinology, Diabetes & Metabolism
DX: E11.65 Type 2 diabetes mellitus with hyperglycemia (principal)
CPT/HCPCS: 80053; 83036

== ENCOUNTER 2022-01-08 14:57 | Observation (INO) | payer OTHER ==
[~2022-01-08] VITALS: Wt 101.4 kg
[2022-01-08] MEDS ORDERED: INSULANI ×2 (15:22→15:24)
[2022-01-08] MEDS ORDERED: IBUP800 PO (15:24)
[2022-01-08 16:06] LABS: BASOPHILS ABSOLUTE AUTO 0.03 K/mm3 (0.00-0.23); BASOPHILS PERCENT AUTO 0 % (0-2); EOSINOPHILS ABSOLUTE AUTO 0.22 K/mm3 (0.00-0.68); EOSINOPHILS PERCENT AUTO 3 % (0-6); Hematocrit 38.8 % (37.0-53.0); Hemoglobin 13.4 g/dL (13.5-17.5); IMMATURE GRAN ABSOLUTE AUTO 0.02 K/mm3 (0.00-0.10); IMMATURE GRAN PERCENT AUTO 0 % (0-1); LYMPHOCYTES ABSOLUTE AUTO 1.66 K/mm3 (0.84-5.20); LYMPHOCYTES PERCENT AUTO 25 % (21-46); MONOCYTES ABSOLUTE AUTO 0.43 K/mm3 (0.16-1.47); MONOCYTES PERCENT AUTO 6 % (4-13); Mean Corpuscular HGB 28.9 pg (26.0-34.0); Mean Corpuscular HGB Conc 34.5 g/dL (31.5-36.5); Mean Corpuscular Volume 84 fL (80-100); Mean Platelet Volume 11.7 fL (9.1-12.4); NEUTROPHILS ABSOLUTE AUTO 4.34 K/mm3 (1.96-9.15); NEUTROPHILS PERCENT AUTO 65 % (41-73); Platelet Count 239 K/mm3 (150-400); RDW Coefficient Variation 13.2 % (11.7-14.2); RDW Standard Deviation 39.9 fL (35.1-46.3); Red Blood Cell Count 4.64 M/mm3 (4.30-5.90)
[2022-01-08 16:37] LABS: Albumin, Blood 3.7 g/dL (3.4-5.0); Albumin/Globulin Ratio 0.9 (0.8-1.8); Bilirubin, Total 0.3 mg/dL (0.1-1.0); Bun/Creatinine Ratio 32.2 (12.0-20.0); Creatinine, Blood 0.9 mg/dL (0.60-1.20); Globulin, Blood 4.3 g/dL (2.2-4.0)
--- NOTE | 2022-01-08 16:51 | NUR ---
SHIFT SUMMARY- PT A&O X4. VSS. WHEELCHAIR IN ROOM. PT COOPERATIVE. ASSUMED CARE AFTERNOON ADMIT. WILL CONTINUE TO MONTIOR. CALL LIGHT IN REACH.
[2022-01-09 00:17] LABS: SARS-Cov-2 (COVID-19) PCR, MMC NEGATIVE (NEGATIVE)
--- NOTE | 2022-01-09 04:38 | NUR ---
SHIFT SUMMARY 51 YR M ADMITTED ON 01/08/22 FOR OSTEOMYLITIS OF LEFT MIDDLE FINGER. FULL CODE. NO ACUTE CHANGES THIS SHIFT. PT IS SCHEDULED FOR A PARTIAL AMPUTAION OF HIS L MIDDLE FINGER TODAY. HE HAS BEEN NPO SINCE MIDNIGHT. A FELLOW NURSE WAS ABLE TO SECURE A 20 G IV AFTER SEVERAL PRIOR ATTEMPTS FAILED. SURGERY PACKET IS BEING FILLED OUT AND PT STATES HE IS FULLY PREPARED FOR SURGERY AND IS NOT NERVOUS AT ALL.
[2022-01-09 05:22] LABS: BASOPHILS ABSOLUTE AUTO 0.03 K/mm3 (0.00-0.23); BASOPHILS PERCENT AUTO 1 % (0-2); EOSINOPHILS PERCENT AUTO 5 % (0-6); Hematocrit 37.8 % (37.0-53.0); Hemoglobin 12.7 g/dL (13.5-17.5); IMMATURE GRAN ABSOLUTE AUTO 0.02 K/mm3 (0.00-0.10); IMMATURE GRAN PERCENT AUTO 0 % (0-1); LYMPHOCYTES ABSOLUTE AUTO 2.12 K/mm3 (0.84-5.20); LYMPHOCYTES PERCENT AUTO 37 % (21-46); MONOCYTES ABSOLUTE AUTO 0.46 K/mm3 (0.16-1.47); MONOCYTES PERCENT AUTO 8 % (4-13); Mean Corpuscular HGB 28.7 pg (26.0-34.0); Mean Corpuscular HGB Conc 33.6 g/dL (31.5-36.5); Mean Corpuscular Volume 85 fL (80-100); Mean Platelet Volume 11.4 fL (9.1-12.4); NEUTROPHILS ABSOLUTE AUTO 2.85 K/mm3 (1.96-9.15); NEUTROPHILS PERCENT AUTO 49 % (41-73); Platelet Count 216 K/mm3 (150-400); RDW Coefficient Variation 13.2 % (11.7-14.2); RDW Standard Deviation 40.9 fL (35.1-46.3); Red Blood Cell Count 4.43 M/mm3 (4.30-5.90); White Blood Cell Count 5.78 K/mm3 (4.00-11.30)
[2022-01-09 05:45] LABS: Bun/Creatinine Ratio 39.1 (12.0-20.0); Calcium, Blood 9.4 mg/dL (8.5-10.1); Creatinine, Blood 0.72 mg/dL (0.60-1.20); Potassium, Blood 3.9 mmol/L (3.5-5.5)
--- NOTE | 2022-01-09 14:43 | NUR ---
THE PATIENT WAS BROUGHT TO DAY SURGERY FOR HIS PROCEDURE.
--- NOTE | 2022-01-09 17:49 | NUR ---
SHIFT SUMMARY- PT NPO UNTIL PROCEDURE. VSS. GAVE HEART MEDICATIONS AND LONG ACTING INSULIN PRIOR TO PROCEDURE. PTY RETURNED FROM SURGERY A& O X3. APPETITE OK. VSS. DRESSING C,D,I. C/O OF PAIN, TREATED PER EMAR. WILL CONTINUE TO MONTIOR, CALL LIGHT IN REACH.
--- NOTE | 2022-01-10 04:21 | NUR ---
SUMMARY: PATIENT DID WELL THIS SHIFT. MEDICATED FOR PAIN WITH TYLENOL AND ULTRAM ONCE EACH. VSS. PATIENT SURGICAL DRESSING IN PLACE ON LEFT HAND. NO SIGNS OF BLEEDING. RADIAL PULSES STRONG BILATERALLY. PROVIDED PATIENT WITH ICE PACK WELL FOR THROBBING IN HAND. NO ACUTE EVENTS OVERNIGHT.
[2022-01-10 04:53] LABS: BASOPHILS ABSOLUTE AUTO 0.02 K/mm3 (0.00-0.23); BASOPHILS PERCENT AUTO 0 % (0-2); EOSINOPHILS ABSOLUTE AUTO 0.02 K/mm3 (0.00-0.68); EOSINOPHILS PERCENT AUTO 0 % (0-6); Hematocrit 40.6 % (37.0-53.0); Hemoglobin 13.3 g/dL (13.5-17.5); IMMATURE GRAN ABSOLUTE AUTO 0.02 K/mm3 (0.00-0.10); IMMATURE GRAN PERCENT AUTO 0 % (0-1); LYMPHOCYTES ABSOLUTE AUTO 1.22 K/mm3 (0.84-5.20); LYMPHOCYTES PERCENT AUTO 19 % (21-46); MONOCYTES ABSOLUTE AUTO 0.31 K/mm3 (0.16-1.47); MONOCYTES PERCENT AUTO 5 % (4-13); Mean Corpuscular HGB 27.8 pg (26.0-34.0); Mean Corpuscular HGB Conc 32.8 g/dL (31.5-36.5); Mean Corpuscular Volume 85 fL (80-100); NEUTROPHILS ABSOLUTE AUTO 4.92 K/mm3 (1.96-9.15); NEUTROPHILS PERCENT AUTO 76 % (41-73); Platelet Count 229 K/mm3 (150-400); RDW Coefficient Variation 12.8 % (11.7-14.2); RDW Standard Deviation 39.3 fL (35.1-46.3); Red Blood Cell Count 4.78 M/mm3 (4.30-5.90); White Blood Cell Count 6.51 K/mm3 (4.00-11.30)
[2022-01-10 05:13] LABS: Bun/Creatinine Ratio 45.2 (12.0-20.0); Calcium, Blood 9.5 mg/dL (8.5-10.1); Creatinine, Blood 0.75 mg/dL (0.60-1.20); Potassium, Blood 4.5 mmol/L (3.5-5.5)
[2022-01-10] MEDS ORDERED: TRAM50 PO (11:43)
[2022-01-10] MEDS ORDERED: Cleocin HCl150 MG PO (11:43)
== END 2022-01-10 13:20 | disposition home or self-care (01) ==
LOC: MEDS 14:57
PROVIDERS: Internal Medicine; ADMIT Internal Medicine
DX: E11.69 Type 2 diabetes mellitus with other specified complication (principal); M86.142 Other acute osteomyelitis, left hand; I25.10 Atherosclerotic heart disease of native coronary artery without angina pectoris; E66.9 Obesity, unspecified; I10 Essential (primary) hypertension; E78.5 Hyperlipidemia, unspecified; E11.42 Type 2 diabetes mellitus with diabetic polyneuropathy; E11.51 Type 2 diabetes mellitus with diabetic peripheral angiopathy without gangrene; G43.909 Migraine, unspecified, not intractable, without status migrainosus; Z89.619 Acquired absence of unspecified leg above knee; Z95.5 Presence of coronary angioplasty implant and graft; Z89.612 Acquired absence of left leg above knee; Z87.891 Personal history of nicotine dependence; Z88.8 Allergy status to other drugs, medicaments and biological substances; Z88.5 Allergy status to narcotic agent; Z88.2 Allergy status to sulfonamides; Z79.4 Long term (current) use of insulin; Z20.822 Contact with and (suspected) exposure to COVID-19; Z87.19 Personal history of other diseases of the digestive system
CPT/HCPCS: 36415; 80048; 80053; 82947; 83036; 85025; 88305; 88311; 93005; 93010; 96374; A9270; G0378; J0690; J0696; J1100; J1815; J2250; J2370; J2405; J2704; J2795; J3010; J7120; U0004

== ENCOUNTER 2022-08-19 11:57 | Day surgery (SDC) | payer OTHER ==
[2022-08-19] VITALS (11 sets, daily range): BP systolic 81–138; BP diastolic 59–98
[~2022-08-19] VITALS: Ht 182.9 cm; Wt 102.3 kg
[~2022-08-19 11:57] MED LIST changes: +Cleocin HCl150 MG PO; +IBUP800 PO; +INSULANI
[2022-08-19] MEDS ORDERED: HUMALOG KW100 UNIT/1 (13:58)
[2022-08-19] MEDS ORDERED: PROBIOTIC1 EA13 PO (13:59)
[2022-08-19] MEDS ORDERED: CENTRUM SILVER1 EAC2 (13:59)
--- NOTE | 2022-08-19 17:21 | NUR ---
1700 TO STEP FROM PACU,AWAKE VSS LEFT HAND PAMELA DRESSING DRY AND INTACT AND JAMARI WRAP IN PLACE. GOOD CAP REFILL WIGGLES FINGERS WELL. COOL TO TOUCH. PT STATES PAIN 08/07 1720 REBEKA PO FLUIDS AND CRACKERS THEN PO PIAN MED GIVEN
--- NOTE | 2022-08-19 17:35 | NUR ---
pT AWAKE AND ALERT, VITALS STABLE, LUNGS CTA. PT STATES PAIN MINIMAL. DISCHARGE INSTRUCTIONS REVIEWED WITH PATIENT, PATIENT VERBALIZES UNDERSTANDING. DRESSING CDI. PT DISCHARGED VIA WHEELCHAIR TO PERSONAL VEHICLE, SON DRIVING.
== END 2022-08-19 22:46 | disposition home or self-care (01) ==
LOC: ORSCMMR 11:57 → ORD 13:30 → ORSCMMR 22:46
PROVIDERS: Orthopaedic Surgery
PROC: 0X6W0Z1 Detachment at Left Little Finger, High, Open Approach (ICD-10-PCS; principal; 2022-08-19 13:30)
DX: S60.417A Abrasion of left little finger, initial encounter (principal); L08.9 Local infection of the skin and subcutaneous tissue, unspecified; M86.9 Osteomyelitis, unspecified; I10 Essential (primary) hypertension; E78.5 Hyperlipidemia, unspecified; I25.10 Atherosclerotic heart disease of native coronary artery without angina pectoris; Z87.891 Personal history of nicotine dependence; I25.2 Old myocardial infarction; E11.9 Type 2 diabetes mellitus without complications; Z79.84 Long term (current) use of oral hypoglycemic drugs; Z79.899 Other long term (current) drug therapy; Z79.4 Long term (current) use of insulin
CPT/HCPCS: 26951; 82947; 88305; 88311; A9270; J0690; J1100; J2250; J2405; J2704; J2795; J3010; J3370; J7120

== ENCOUNTER 2022-09-09 12:10 | Day surgery (SDC) | payer OTHER ==
[2022-09-09] VITALS (9 sets, daily range): BP systolic 114–135; BP diastolic 68–82
[~2022-09-09] VITALS: Ht 182.9 cm; Wt 104.0 kg
[~2022-09-09 12:10] MED LIST changes: +CENTRUM SILVER1 EAC2; +HUMALOG KW100 UNIT/1; +PROBIOTIC1 EA13 PO
[2022-09-09] MEDS ORDERED: INSULANPEN SC (13:13)
--- NOTE | 2022-09-09 13:38 | NUR ---
History, Chart, Medications and Allergies reviewed before start of procedure. Lungs clear T/O to Auscultation. Patient confirms NPO status and agrees with scheduled surgery. Pre-Op teaching done. Pt verbalizes understanding. Patient States Post-Procedure ride home has been arranged.
--- NOTE | 2022-09-09 16:28 | NUR ---
PT UP NORMAL FOR HIM WITH NO DIZZINESS/LIGHTHEADEDNESS. Discharge instructions reviewed with patient. Patient verbalizes understanding. Copy given to patient to take home. Patient States Post-Procedure ride home has been arranged. Discharged via wheelchair to private car for ride home.
== END 2022-09-09 16:28 | disposition home or self-care (01) ==
LOC: ORSCMMR 12:10 → ORD 12:10 → ORSCMMR 12:11 → ORD 16:28
PROVIDERS: Orthopaedic Surgery
PROC: 0X6W0Z0 Detachment at Left Little Finger, Complete, Open Approach (ICD-10-PCS; principal; 2022-09-09 14:00)
DX: M86.142 Other acute osteomyelitis, left hand (principal); L03.012 Cellulitis of left finger; E11.9 Type 2 diabetes mellitus without complications; I10 Essential (primary) hypertension; I25.2 Old myocardial infarction; F17.210 Nicotine dependence, cigarettes, uncomplicated; I25.10 Atherosclerotic heart disease of native coronary artery without angina pectoris; E78.5 Hyperlipidemia, unspecified; Z79.899 Other long term (current) drug therapy; Z79.84 Long term (current) use of oral hypoglycemic drugs
CPT/HCPCS: 82947; 88305; 88311; J0690; J2704; J3010; J3370; J7120

== ENCOUNTER → 2023-01-11 | Outpatient (CLI) | payer OTHER | LOC: LAB SHORT 13:41 → LAB 13:41 | DX: L03.115 Cellulitis of right lower limb (principal) | CPT/HCPCS: 87070; 87075; 87077; 87147; 87186; 87205 ==

== ENCOUNTER 2023-01-15 04:53 | Day surgery (SDC) | payer OTHER | END 2023-01-15 22:46 | disposition home or self-care (01) | LOC: WOUND 04:53 | DX: I77.6 Arteritis, unspecified (principal); L03.115 Cellulitis of right lower limb; E11.622 Type 2 diabetes mellitus with other skin ulcer | CPT/HCPCS: G0463 ==

== ENCOUNTER 2023-01-23 03:03 | Day surgery (SDC) | payer OTHER | END 2023-01-23 22:34 | disposition home or self-care (01) | LOC: WOUND 03:03 | DX: E11.622 Type 2 diabetes mellitus with other skin ulcer (principal); L97.812 Non-pressure chronic ulcer of other part of right lower leg with fat layer exposed; L03.115 Cellulitis of right lower limb; E11.42 Type 2 diabetes mellitus with diabetic polyneuropathy; I10 Essential (primary) hypertension; E78.5 Hyperlipidemia, unspecified | CPT/HCPCS: G0463 ==

== ENCOUNTER 2023-01-30 05:20 | Day surgery (SDC) | payer OTHER | END 2023-01-30 22:37 | disposition home or self-care (01) | LOC: WOUND 05:20 | DX: L03.115 Cellulitis of right lower limb (principal); E11.622 Type 2 diabetes mellitus with other skin ulcer | CPT/HCPCS: G0463 ==

== ENCOUNTER 2023-02-06 05:27 | Day surgery (SDC) | payer OTHER | END 2023-02-06 22:46 | disposition home or self-care (01) | LOC: WOUND 05:27 | DX: E11.622 Type 2 diabetes mellitus with other skin ulcer (principal); L97.813 Non-pressure chronic ulcer of other part of right lower leg with necrosis of muscle; L97.812 Non-pressure chronic ulcer of other part of right lower leg with fat layer exposed; L03.115 Cellulitis of right lower limb; E11.42 Type 2 diabetes mellitus with diabetic polyneuropathy; I10 Essential (primary) hypertension; E78.5 Hyperlipidemia, unspecified | CPT/HCPCS: A9270; G0463 ==

== ENCOUNTER 2023-02-12 08:00 | Day surgery (SDC) | payer OTHER | END 2023-02-12 23:59 | disposition home or self-care (01) | LOC: WOUND 08:00 | DX: E11.622 Type 2 diabetes mellitus with other skin ulcer (principal); L97.815 Non-pressure chronic ulcer of other part of right lower leg with muscle involvement without evidence of necrosis; L03.115 Cellulitis of right lower limb; I10 Essential (primary) hypertension; E78.5 Hyperlipidemia, unspecified; E11.42 Type 2 diabetes mellitus with diabetic polyneuropathy | CPT/HCPCS: A9270; G0463 ==

== ENCOUNTER 2023-02-19 02:22 | Day surgery (SDC) | payer OTHER | END 2023-02-19 22:41 | disposition home or self-care (01) | LOC: WOUND 02:22 | DX: E11.622 Type 2 diabetes mellitus with other skin ulcer (principal); L97.812 Non-pressure chronic ulcer of other part of right lower leg with fat layer exposed; L03.115 Cellulitis of right lower limb; E11.42 Type 2 diabetes mellitus with diabetic polyneuropathy; E78.5 Hyperlipidemia, unspecified; I10 Essential (primary) hypertension | CPT/HCPCS: G0463 ==

== ENCOUNTER 2023-02-27 02:41 | Day surgery (SDC) | payer OTHER | END 2023-02-27 22:43 | disposition home or self-care (01) | LOC: WOUND 02:41 | DX: E11.621 Type 2 diabetes mellitus with foot ulcer (principal); L97.512 Non-pressure chronic ulcer of other part of right foot with fat layer exposed; E11.622 Type 2 diabetes mellitus with other skin ulcer; L97.812 Non-pressure chronic ulcer of other part of right lower leg with fat layer exposed; L03.115 Cellulitis of right lower limb; E11.42 Type 2 diabetes mellitus with diabetic polyneuropathy; I10 Essential (primary) hypertension; E78.5 Hyperlipidemia, unspecified | CPT/HCPCS: G0463 ==

== ENCOUNTER 2023-03-06 01:23 | Day surgery (SDC) | payer OTHER | END 2023-03-06 22:44 | disposition home or self-care (01) | LOC: WOUND 01:23 | DX: E11.622 Type 2 diabetes mellitus with other skin ulcer (principal); L03.115 Cellulitis of right lower limb; E11.42 Type 2 diabetes mellitus with diabetic polyneuropathy; I10 Essential (primary) hypertension; E78.5 Hyperlipidemia, unspecified | CPT/HCPCS: G0463 ==

== ENCOUNTER 2024-02-04 21:07 | Emergency (ER) | payer OTHER ==
[~2024-02-04] VITALS: Ht 182.9 cm; Wt 95.2 kg
[~2024-02-04 21:07] MED LIST changes: +OXAYDO5 M1 PO
[2024-02-04 21:15] VITALS: BP 165/107
[2024-02-04] MEDS ORDERED: OxyCODONE HCL 5 MG TAB PO ONE (22:20)
[2024-02-10] MEDS ORDERED: MULVITA PO (20:56)
[2024-02-10] MEDS ORDERED: FAMO10 PO (20:56)
[2024-02-10] MEDS ORDERED: ASPIR 8181 M1 PO (20:56)
== END 2024-02-04 23:27 | disposition home or self-care (01) ==
LOC: ER 21:07
DX: T81.89XA Other complications of procedures, not elsewhere classified, initial encounter (principal); Y83.8 Other surgical procedures as the cause of abnormal reaction of the patient, or of later complication, without mention of misadventure at the time of the procedure; E11.9 Type 2 diabetes mellitus without complications; I10 Essential (primary) hypertension; E78.5 Hyperlipidemia, unspecified; Z88.5 Allergy status to narcotic agent; Z88.8 Allergy status to other drugs, medicaments and biological substances; Z88.2 Allergy status to sulfonamides; Z88.1 Allergy status to other antibiotic agents; Z79.899 Other long term (current) drug therapy; Z79.4 Long term (current) use of insulin
CPT/HCPCS: 12002; 99282-25; A9270

== ENCOUNTER → 2024-05-27 | Outpatient (CLI) | payer OTHER ==
[~2024-05-27] MED LIST changes: +AMLO10 PO; +ASPIR 8181 M1 PO; +BANATROL PLUS1 EAC1 PO; +FAMO10 PO; +HYDR10 PO; +MULVITA PO
== END ==
LOC: LAB SHORT 10:27 → LAB 10:27
DX: L97.312 Non-pressure chronic ulcer of right ankle with fat layer exposed (principal)
CPT/HCPCS: 87070; 87075; 87077; 87186; 87205

== ENCOUNTER 2024-06-04 05:10 | Day surgery (SDC) | payer OTHER ==
[2024-06-04] MEDS ORDERED: Lidocaine HCl 4% Cream 5 GM ONE (13:58)
== END 2024-06-04 23:00 | disposition home or self-care (01) ==
LOC: WOUND 05:10
DX: E11.622 Type 2 diabetes mellitus with other skin ulcer (principal); L97.312 Non-pressure chronic ulcer of right ankle with fat layer exposed; E11.621 Type 2 diabetes mellitus with foot ulcer; E11.42 Type 2 diabetes mellitus with diabetic polyneuropathy; E11.51 Type 2 diabetes mellitus with diabetic peripheral angiopathy without gangrene; I70.213 Atherosclerosis of native arteries of extremities with intermittent claudication, bilateral legs; Z89.612 Acquired absence of left leg above knee
CPT/HCPCS: 93922; A6213; A9270; G0463

== ENCOUNTER 2024-06-11 04:29 | Day surgery (SDC) | payer OTHER ==
[2024-06-11] MEDS ORDERED: Lidocaine HCl 4% Cream 5 GM ONE (14:08)
[2024-06-11] MEDS ORDERED: Miconazole Nitrate 28 GM CREAM..G. TOP ONE (14:46)
== END 2024-06-11 23:00 | disposition home or self-care (01) ==
LOC: WOUND 04:29
DX: E11.622 Type 2 diabetes mellitus with other skin ulcer (principal); L97.312 Non-pressure chronic ulcer of right ankle with fat layer exposed; E11.621 Type 2 diabetes mellitus with foot ulcer; E11.42 Type 2 diabetes mellitus with diabetic polyneuropathy; E11.51 Type 2 diabetes mellitus with diabetic peripheral angiopathy without gangrene; Z89.612 Acquired absence of left leg above knee; I70.213 Atherosclerosis of native arteries of extremities with intermittent claudication, bilateral legs
CPT/HCPCS: A6213; A9270

== ENCOUNTER 2024-06-18 03:33 | Day surgery (SDC) | payer OTHER ==
[~2024-06-18 03:33] MED LIST changes: -FAMO10 PO; +FAMO20 PO; -LISI20 PO; +OXYC10TA19 PO; +ZESTRIL40 M1 PO
[2024-06-18] MEDS ORDERED: Lidocaine HCl 4% Cream 5 GM ONE (14:42)
== END 2024-06-18 23:00 | disposition home or self-care (01) ==
LOC: WOUND 03:33
DX: E11.621 Type 2 diabetes mellitus with foot ulcer (principal); L97.411 Non-pressure chronic ulcer of right heel and midfoot limited to breakdown of skin; L97.511 Non-pressure chronic ulcer of other part of right foot limited to breakdown of skin; E11.622 Type 2 diabetes mellitus with other skin ulcer; L97.312 Non-pressure chronic ulcer of right ankle with fat layer exposed; E11.42 Type 2 diabetes mellitus with diabetic polyneuropathy; E11.51 Type 2 diabetes mellitus with diabetic peripheral angiopathy without gangrene; I70.213 Atherosclerosis of native arteries of extremities with intermittent claudication, bilateral legs; I10 Essential (primary) hypertension; Z89.612 Acquired absence of left leg above knee
CPT/HCPCS: A6213; A9270

== ENCOUNTER 2024-06-22 02:53 | Day surgery (SDC) | payer OTHER ==
[2024-06-22] MEDS ORDERED: Lidocaine HCl 4% Cream 5 GM ONE (10:52)
[2024-06-22] MEDS ORDERED: MOUNJARO5 MG/0.5 M SQ (21:00)
[2024-06-23] MEDS ORDERED: EZETIMIBE10 M6 PO (18:49)
[2024-06-23] MEDS ORDERED: ECONAZOLE NITRA30 GM TOP (18:49)
[2024-06-23] MEDS ORDERED: SILVER SULFADIA2011 (18:51)
[2024-06-23] MEDS ORDERED: FIASP 100100 UNIT/3 SC (19:36)
== END 2024-06-22 22:54 | disposition home or self-care (01) ==
LOC: WOUND 02:53
DX: E11.622 Type 2 diabetes mellitus with other skin ulcer (principal); L97.312 Non-pressure chronic ulcer of right ankle with fat layer exposed; E11.621 Type 2 diabetes mellitus with foot ulcer; L97.512 Non-pressure chronic ulcer of other part of right foot with fat layer exposed; L97.412 Non-pressure chronic ulcer of right heel and midfoot with fat layer exposed; E11.42 Type 2 diabetes mellitus with diabetic polyneuropathy; E78.5 Hyperlipidemia, unspecified; I10 Essential (primary) hypertension; E11.51 Type 2 diabetes mellitus with diabetic peripheral angiopathy without gangrene
CPT/HCPCS: A6213; A9270; G0463

== ENCOUNTER 2024-06-22 11:45 | Inpatient (IN) | payer OTHER ==
[~2024-06-22] VITALS: Ht 182.9 cm; Wt 95.2 kg
[2024-06-22 16:19] LABS: BASOPHILS ABSOLUTE AUTO 0.04 K/mm3 (0.00-0.23); BASOPHILS PERCENT AUTO 0 % (0-2); EOSINOPHILS ABSOLUTE AUTO 0.26 K/mm3 (0.00-0.68); EOSINOPHILS PERCENT AUTO 3 % (0-6); Hematocrit 35.6 % (37.0-53.0); IMMATURE GRAN ABSOLUTE AUTO 0.03 K/mm3 (0.00-0.10); IMMATURE GRAN PERCENT AUTO 0 % (0-1); LYMPHOCYTES ABSOLUTE AUTO 1.73 K/mm3 (0.84-5.20); LYMPHOCYTES PERCENT AUTO 17 % (21-46); MONOCYTES ABSOLUTE AUTO 0.79 K/mm3 (0.16-1.47); MONOCYTES PERCENT AUTO 8 % (4-13); Mean Corpuscular HGB 28.1 pg (26.0-34.0); Mean Corpuscular HGB Conc 33.7 g/dL (31.5-36.5); Mean Corpuscular Volume 83 fL (80-100); NEUTROPHILS ABSOLUTE AUTO 7.19 K/mm3 (1.96-9.15); NEUTROPHILS PERCENT AUTO 72 % (41-73); Platelet Count 244 K/mm3 (150-400); RDW Coefficient Variation 13.4 % (11.7-14.2); Red Blood Cell Count 4.27 M/mm3 (4.30-5.90); White Blood Cell Count 10.04 K/mm3 (4.00-11.30)
[2024-06-22 16:34] LABS: International Normalized Ratio 1.07; Prothrombin Time Results 11.4 Sec (9.7-11.5)
[2024-06-22] MEDS ORDERED: Dose Adjust by Pharmacy XX STA (16:39)
[2024-06-22] MEDS ORDERED: FLU VACC TS2024-25(6MOS UP)/PF 45 MCG/0.5 ML SYRINGE IM PRN (16:40)
[2024-06-22] MEDS ORDERED: Heparin Sodium 5000 Units/ML 1ML MDV IV ONE (16:40)
[2024-06-22] MEDS ORDERED: Heparin Sodium,Porcine/0.5 NS 500 ML IV SCH (16:40)
[2024-06-22 16:54] LABS: Albumin, Blood 3.3 g/dL (3.4-5.0); Albumin/Globulin Ratio 0.7 (0.8-1.8); Bilirubin, Total 0.4 mg/dL (0.1-1.0); Bun/Creatinine Ratio 31.2 (12.0-20.0); Calcium, Blood 9.6 mg/dL (8.5-10.1); Creatinine, Blood 0.9 mg/dL (0.60-1.20); Globulin, Blood 4.7 g/dL (2.2-4.0); Potassium, Blood 4.4 mmol/L (3.5-5.5)
[2024-06-22] MEDS ORDERED: CeFAZolin Sodium 1,000 MG in NS 50 ML IV SCH (18:00)
--- NOTE | 2024-06-22 18:36 | NUR ---
PT ARRIVED TO ROOM AT 1830. PT IS AOX4 AND COOPERATIVE OF CARE. PT IS A 1 PERSON ASSIST TO COMMODE ABLE TO USE URINAL. DENIES PAIN. PT HAS BEEN SETTLED INTO ROOM AND CALL LIGHT IS IN REACH. NO DISTRESS NOTED. WILL CONTINUE TO MONITOR.
[2024-06-22 18:37] VITALS: BP 118/82
[2024-06-22 19:48] VITALS: BP 149/88
[2024-06-22] MEDS ORDERED: MOUNJARO5 MG/0.5 M SQ (21:00)
[2024-06-22] MEDS ORDERED: Lactobacil 2-S.Thermo-Bifido 1 1 Cap PO SCH (21:00)
[2024-06-22] MEDS ORDERED: Pregabalin 50 MG Capsule PO SCH (22:00)
[2024-06-22] MEDS ORDERED: NS 250 ML IV PRN (23:05)
[2024-06-23] MEDS ORDERED: OxyCODONE HCL 5 MG TAB PO SCH
[2024-06-23] MEDS ORDERED: OxyCODONE HCL 5 MG TAB PO PRN (00:15)
[2024-06-23] MEDS ORDERED: Clarify Drug Order XX ONE ×2 (02:05→13:30)
[2024-06-23 04:36] VITALS: BP 143/92
--- NOTE | 2024-06-23 04:47 | NUR ---
SHIFT SUMMARY: PT AOX4 PLEASANT AND COOPERATIVE IN CARE. CALLS APPRORIATELY AND ABLE TO MAKE NEEDS KNOWN. WOUND CARE PERFORMED PER ORDERS PT TOLERATED WELL. PODIATRY COSULTED IR WHO WILL PRESUMABLY SEE PT IN THE AM. PT COMPLAINTS OF SOME CHRONIC BACK PAIN, MEDICATED PER EMR. PT ABLE TO TRANSFER IND TO [facility], HAD SMALL BM AND VOIDED. PT MADE NPO AT MIDNIGHT. TOLERATING MEDICATIONS WELL, DENIES CP AND SHORTNESS OF BREATH. PT IN BED SLEEPING, BED IN LOWEST POSITION CALL LIGHT IN REACH. CONTINUING CARE.
[2024-06-23 06:10] LABS: BASOPHILS ABSOLUTE AUTO 0.03 K/mm3 (0.00-0.23); BASOPHILS PERCENT AUTO 0 % (0-2); EOSINOPHILS ABSOLUTE AUTO 0.24 K/mm3 (0.00-0.68); EOSINOPHILS PERCENT AUTO 3 % (0-6); Hematocrit 34.5 % (37.0-53.0); Hemoglobin 11.5 g/dL (13.5-17.5); IMMATURE GRAN ABSOLUTE AUTO 0.04 K/mm3 (0.00-0.10); IMMATURE GRAN PERCENT AUTO 1 % (0-1); LYMPHOCYTES ABSOLUTE AUTO 1.71 K/mm3 (0.84-5.20); LYMPHOCYTES PERCENT AUTO 21 % (21-46); MONOCYTES PERCENT AUTO 8 % (4-13); Mean Corpuscular HGB 28.3 pg (26.0-34.0); Mean Corpuscular HGB Conc 33.3 g/dL (31.5-36.5); Mean Corpuscular Volume 85 fL (80-100); Mean Platelet Volume 11.2 fL (9.1-12.4); NEUTROPHILS PERCENT AUTO 67 % (41-73); Platelet Count 230 K/mm3 (150-400); RDW Standard Deviation 40.5 fL (35.1-46.3); Red Blood Cell Count 4.06 M/mm3 (4.30-5.90); White Blood Cell Count 8.32 K/mm3 (4.00-11.30)
[2024-06-23] MEDS ORDERED: FentaNYL Citrate 50 MCG/ML 2 ML Injection IV PRN (06:30)
[2024-06-23 06:31] LABS: Bun/Creatinine Ratio 29.9 (12.0-20.0); Creatinine, Blood 0.77 mg/dL (0.60-1.20); Potassium, Blood 4.1 mmol/L (3.5-5.5)
[2024-06-23] MEDS ORDERED: Dose Adjust by Pharmacy XX STA ×2 (06:32→19:00)
[2024-06-23 07:22] VITALS: BP 128/71
[2024-06-23] MEDS ORDERED: Insulin Regular 100 UNIT/ML 10ML Vial SC SCH (07:30)
[2024-06-23] MEDS ORDERED: Ezetimibe 10 MG Tab PO SCH (09:00)
[2024-06-23] MEDS ORDERED: Aspirin 81 MG Chew PO SCH (09:00)
[2024-06-23] MEDS ORDERED: D5W-1/2NS 1,000 ML IV SCH (13:50)
--- NOTE | 2024-06-23 16:42 | NUR ---
PT DOING WELL NO DISTRESS NOTED AND AOX4. PT CONTINUES TO BE NPO WAITING FOR IR TO EVALUATE. CBGs @ 0738 WAS 97 THEN @[address] W[place] WAS NOTIFIED AFTER IR DR ALARCON WANTED PT TO STAY NPO. DR WASHINGTON ORDERED D5 MIX TO EMAR. PT IS A STANDBY PIVOT TO BEDSIDE COMMODE AND IS ABLE TO MAKE NEEDS KNOWN. WILL CONTINUE TO MONITOR.
[2024-06-23 16:55] VITALS: BP 134/89
[2024-06-23] MEDS ORDERED: EZETIMIBE10 M6 PO (18:49)
[2024-06-23] MEDS ORDERED: ECONAZOLE NITRA30 GM TOP (18:49)
[2024-06-23] MEDS ORDERED: SILVER SULFADIA2011 (18:51)
[2024-06-23] MEDS ORDERED: FIASP 100100 UNIT/3 SC (19:36)
[2024-06-23 19:56] VITALS: BP 155/102
[2024-06-23 22:05] VITALS: BP 140/81
[2024-06-24] VITALS (12 sets, daily range): BP systolic 105–165; BP diastolic 76–101
[2024-06-24] MEDS ORDERED: Cyclobenzaprine HCl 10 MG Tab PO PRN (00:30)
--- NOTE | 2024-06-24 04:19 | NUR ---
A&OX4, PERRL, PENSION FUND MANAGER EQUAL. INDEPENDENT IN BED. ABLE TO MAKE NEEDS KNWON. BTX4 ABD, FIRM AND NONTENDER. DRESSING CHANGED WITH BETADINE, COVERED WITH GAUZE, ABD PAD, A LOOSE GAUZE AND JAMARI WRAP. PT HAS MULTPLE DRY ESCHAR ON RLE TO R LATERAL FOOT, R HEEL, R MEDIAL ANKLE AND CHINO. LEFT LATERAL FOOT CYANOSIS DECREASED PER PT. TRACED EDEMA NOTED TO RLE.
[2024-06-24 06:07] LABS: BASOPHILS ABSOLUTE AUTO 0.02 K/mm3 (0.00-0.23); BASOPHILS PERCENT AUTO 0 % (0-2); EOSINOPHILS ABSOLUTE AUTO 0.28 K/mm3 (0.00-0.68); EOSINOPHILS PERCENT AUTO 4 % (0-6); Hematocrit 33.7 % (37.0-53.0); Hemoglobin 11.3 g/dL (13.5-17.5); IMMATURE GRAN ABSOLUTE AUTO 0.03 K/mm3 (0.00-0.10); IMMATURE GRAN PERCENT AUTO 0 % (0-1); LYMPHOCYTES ABSOLUTE AUTO 1.28 K/mm3 (0.84-5.20); LYMPHOCYTES PERCENT AUTO 19 % (21-46); MONOCYTES ABSOLUTE AUTO 0.58 K/mm3 (0.16-1.47); MONOCYTES PERCENT AUTO 9 % (4-13); Mean Corpuscular HGB 27.6 pg (26.0-34.0); Mean Corpuscular HGB Conc 33.5 g/dL (31.5-36.5); Mean Corpuscular Volume 82 fL (80-100); Mean Platelet Volume 11.6 fL (9.1-12.4); NEUTROPHILS ABSOLUTE AUTO 4.49 K/mm3 (1.96-9.15); NEUTROPHILS PERCENT AUTO 67 % (41-73); Platelet Count 252 K/mm3 (150-400); RDW Standard Deviation 39.4 fL (35.1-46.3); Red Blood Cell Count 4.09 M/mm3 (4.30-5.90); White Blood Cell Count 6.68 K/mm3 (4.00-11.30)
[2024-06-24 06:34] LABS: Albumin, Blood 3.3 g/dL (3.4-5.0); Anion Gap 13 mmol/L (3-11); Blood Urea Nitrogen 20 mg/dL (8-24); Bun/Creatinine Ratio 28.9 (12.0-20.0); CO2, Blood 19 mmol/L (21-32); Calcium, Blood 8.9 mg/dL (8.5-10.1); Chloride, Blood 106 mmol/L (98-108); Creatinine, Blood 0.69 mg/dL (0.60-1.20); Glomerular Filtration Rate 109 (60-); Glucose, Blood 102 mg/dL (70-99); Phosphorus, Blood 3.4 mg/dL (2.5-4.9); Potassium, Blood 3.8 mmol/L (3.5-5.5); Sodium, Blood 134 mmol/L (136-145)
[2024-06-24] MEDS ORDERED: Dose Adjust by Pharmacy XX STA (06:54)
[2024-06-24] MEDS ORDERED: NS 250 ML IV ONE (13:30)
[2024-06-24] MEDS ORDERED: Heparin Sodium 1000 Units/ML 10ML MDV ONE ×2 (13:31→14:30)
[2024-06-24] MEDS ORDERED: Nitroglycerin 2 MG/20 ML BTL ONE ×2 (13:31→15:36)
[2024-06-24] MEDS ORDERED: NS 1,000 ML IV ONE ×2 (13:31→14:15)
[2024-06-24] MEDS ORDERED: Clarify Drug Order XX ONE (14:10)
[2024-06-24] MEDS ORDERED: Midazolam HCl 1MG / ML 2ML Vial ONE ×2 (14:15→14:29)
[2024-06-24] MEDS ORDERED: FentaNYL Citrate 50 MCG/ML 2 ML Injection ONE ×2 (14:15→14:29)
[2024-06-24] MEDS ORDERED: Phenylephrine HCl 100 MCG/ML-NS 10MLSYR (1MG/10ML) ONE (14:24)
--- NOTE | 2024-06-24 17:30 | NUR ---
ASSUMED CARE OF PT PT WAS A/O VSS AND WAS ABLE TO MAKE NEEDS KNOWN. PAIN TO RIGHT LEG WAS COVERED WITH FENTANYL, NO OBVIOUS WORSENING OF SYSMPTOMS TO LEGS. PT WAITING ANGIO AND IS NPO AND REBEKA WELL. 1400 PT WAS TAKEN FOR PROCEDURE, HEPARIN WAS CONT TO PROCEDURE
--- NOTE | 2024-06-24 17:33 | NUR ---
ASSUMED CARE OF PATIENT AT 1620 POST PHARMACY DATA ANALYST S/P ANGIO. R FEMORAL SITE C/D/I AREA IS SOFT/NON TENDER AT THIS TIME
--- NOTE | 2024-06-24 18:26 | NUR ---
SHIFT SUMMARY PT ALERT AND ORIENTED X4, ABLE TO MAKE HIS NEEDS KNOWN AND CALLS APPROPRIATELY. MOTOR MOVEMENT UPPER EXTERMITIES INTACT. BULL LOWER EXTERMITITES DUE TO ANGIOGRAM AND MANDATORY SUPINE/MINIMAL MOVMENT. + PARASTHESIA TO R FOOT FROM ANKLE TO TOES VERBALIZES THIS HAS BEEN PRESENT FOR SOMETIME. CARDIAC: SR PER TELE 1 DEG AVB, BBB HR 80S. HTN SBP 130S AFTER ARRIVAL FROM MOTOR WINDER AND NOW 150S. LUNGS: CLEAR/DIM THROUGHOUT GI: ABDOMEN IS SOFT/NON TENDER WITH NORMOACTIVE BOWEL TONES. : LIGHT YELLOW URINE, USES URINAL CURRENTLY. MOBILITY: STAND PIVOT, USES BSC AT BASELINE. HAS PROSTETIC BUT HAS NOT USED RECENTLY. L FEMORAL SITE S/P ANGIO. CHG DSG IN PLACE C/D/I AREA IS SOFT, NO VISIBLE HEMATOMA. RLE DOPPLER ONLY FOR PEDAL PULSES LOCATION MARKED. FAMILY: SON IS HIS CONTACT OK FOR UPDATES. HEPARIN RESTARTED SEE PHARMACY ORDER FOR DETAILS
[2024-06-24] MEDS ORDERED: Sodium Bicarbonate 650 MG Tab PO SCH (21:00)
[2024-06-25 00:28] LABS: BASOPHILS ABSOLUTE AUTO 0.02 K/mm3 (0.00-0.23); BASOPHILS PERCENT AUTO 0 % (0-2); EOSINOPHILS ABSOLUTE AUTO 0.21 K/mm3 (0.00-0.68); EOSINOPHILS PERCENT AUTO 3 % (0-6); Hematocrit 31.5 % (37.0-53.0); Hemoglobin 10.7 g/dL (13.5-17.5); IMMATURE GRAN ABSOLUTE AUTO 0.02 K/mm3 (0.00-0.10); IMMATURE GRAN PERCENT AUTO 0 % (0-1); LYMPHOCYTES PERCENT AUTO 16 % (21-46); MONOCYTES ABSOLUTE AUTO 0.45 K/mm3 (0.16-1.47); MONOCYTES PERCENT AUTO 7 % (4-13); Mean Corpuscular HGB 27.5 pg (26.0-34.0); Mean Corpuscular Volume 81 fL (80-100); Mean Platelet Volume 10.6 fL (9.1-12.4); NEUTROPHILS ABSOLUTE AUTO 4.96 K/mm3 (1.96-9.15); NEUTROPHILS PERCENT AUTO 73 % (41-73); Platelet Count 233 K/mm3 (150-400); Red Blood Cell Count 3.89 M/mm3 (4.30-5.90); White Blood Cell Count 6.76 K/mm3 (4.00-11.30)
[2024-06-25 00:42] LABS: Bun/Creatinine Ratio 25.1 (12.0-20.0); Calcium, Blood 8.3 mg/dL (8.5-10.1); Creatinine, Blood 0.68 mg/dL (0.60-1.20); Potassium, Blood 3.8 mmol/L (3.5-5.5)
[2024-06-25] MEDS ORDERED: Dose Adjust by Pharmacy XX STA ×2 (01:24→08:52)
[2024-06-25 04:23] VITALS: BP 127/85
--- NOTE | 2024-06-25 06:31 | NUR ---
SHIFT SUMMARY ASSUMED CARE OF PT AT 1900. PT IS A/OX4. HEART SOUNDS REGULAR. LUNG SOUNDS CLEAR. PT WAS A 1P STAND PIVOT TO BSC. DRESSINGS CHANGED ON PT FOOT THIS PM. PT HAS STRONG PULSE ON R FOOT. FOOT IS WARM AND PINK. PT NOTED TO THIS NURSE THAT TO DOPPLER SOUNDED BETTER AND HIS FOOT WWAS MUCH BETTER THAN BEFORE. PT L GROIN SITE SOFT AND WNL. PT C/O BACK PAIN T/O THE NOC, MEDICATED PER EMAR AND REPOSITIONED FOR COMFORT.
[2024-06-25 09:14] VITALS: BP 115/74
[2024-06-25] MEDS ORDERED: Apixaban 5 MG Tab PO SCH (10:45)
[2024-06-25 11:34] VITALS: BP 111/79
[2024-06-25] MEDS ORDERED: ELIQUIS5 M2 PO (13:05)
--- NOTE | 2024-06-25 15:40 | NUR ---
DISCHARGE SUMMARY PT A&Ox4, CALLS AND COMMUNICATES NEEDS APPROPRIATELY. BP STABLE, SINUS 80's, DENIES CP/PRESSURE. SpO2> 92% RA, DENIES SOB. L FEMORAL SITE WNL. DRESSING ON R FOOT WNL, C/D/I. MANAGED PTs PAIN PER EMAR. DISCHARGE INSTRUCTIONS PROVIDED. ALL PT BELONGINGS GATHERED. PT TAKEN OUT VIA WHEELCHAIR BY THIS RN AT APPROXIMATELY 1515.
== END 2024-06-25 15:15 | disposition home or self-care (01) | DRG 279 ==
LOC: ER 11:45 → MEDS 16:40 → PCU 16:40 → MEDS 18:30 → PCU 06-24 16:11
PROVIDERS: Student in an Organized Health Care Education/Training Program; ADMIT Family Medicine
PROC: 04FP3ZZ Fragmentation of Right Anterior Tibial Artery, Percutaneous Approach (ICD-10-PCS; principal; 2024-06-25)
PROC: 04FT3ZZ Fragmentation of Right Peroneal Artery, Percutaneous Approach (ICD-10-PCS; 2024-06-25)
PROC: 047T3ZZ Dilation of Right Peroneal Artery, Percutaneous Approach (ICD-10-PCS; 2024-06-25)
PROC: 047P3ZZ Dilation of Right Anterior Tibial Artery, Percutaneous Approach (ICD-10-PCS; 2024-06-25)
PROC: 047M3ZZ Dilation of Right Popliteal Artery, Percutaneous Approach (ICD-10-PCS; 2024-06-25)
PROC: B41F1ZZ Fluoroscopy of Right Lower Extremity Arteries using Low Osmolar Contrast (ICD-10-PCS; 2024-06-25)
DX: E11.52 Type 2 diabetes mellitus with diabetic peripheral angiopathy with gangrene (principal); L97.319 Non-pressure chronic ulcer of right ankle with unspecified severity; M86.8X7 Other osteomyelitis, ankle and foot; I25.10 Atherosclerotic heart disease of native coronary artery without angina pectoris; E11.51 Type 2 diabetes mellitus with diabetic peripheral angiopathy without gangrene; E78.5 Hyperlipidemia, unspecified; I10 Essential (primary) hypertension; E11.69 Type 2 diabetes mellitus with other specified complication; F12.90 Cannabis use, unspecified, uncomplicated; E11.319 Type 2 diabetes mellitus with unspecified diabetic retinopathy without macular edema; E11.621 Type 2 diabetes mellitus with foot ulcer; L97.519 Non-pressure chronic ulcer of other part of right foot with unspecified severity; Z88.5 Allergy status to narcotic agent; Z88.2 Allergy status to sulfonamides; Z88.8 Allergy status to other drugs, medicaments and biological substances; Z79.811 Long term (current) use of aromatase inhibitors; Z79.84 Long term (current) use of oral hypoglycemic drugs; Z79.899 Other long term (current) drug therapy; Z79.891 Long term (current) use of opiate analgesic; Z79.4 Long term (current) use of insulin; Z79.82 Long term (current) use of aspirin; Z89.612 Acquired absence of left leg above knee; Z87.19 Personal history of other diseases of the digestive system; Z98.890 Other specified postprocedural states; Z95.5 Presence of coronary angioplasty implant and graft; Z98.52 Vasectomy status; Z90.49 Acquired absence of other specified parts of digestive tract; Z89.022 Acquired absence of left finger(s); Z87.891 Personal history of nicotine dependence; Z98.49 Cataract extraction status, unspecified eye; Z87.442 Personal history of urinary calculi; Z78.9 Other specified health status; Z01.810 Encounter for preprocedural cardiovascular examination
CPT/HCPCS: 36415; 73620; 80048; 80053; 80069; 82947; 85025; 85347; 85520; 85610; 85730; 93926; 99284-25; A9270; J0690; J1644; J1815; J2250; J2371; J3010; J7030; J7042; J7050

== ENCOUNTER 2024-06-29 02:43 | Day surgery (SDC) | payer OTHER ==
[~2024-06-29 02:43] MED LIST changes: +ECONAZOLE NITRA30 GM TOP; +ELIQUIS5 M2 PO; +EZETIMIBE10 M6 PO; +FIASP 100100 UNIT/3 SC; +MOUNJARO5 MG/0.5 M SQ; +SILVER SULFADIA2011
[2024-06-29] MEDS ORDERED: Lidocaine HCl 4% Cream 5 GM ONE (10:16)
== END 2024-06-29 23:00 | disposition home or self-care (01) ==
LOC: WOUND 02:43
DX: E11.621 Type 2 diabetes mellitus with foot ulcer (principal); L97.412 Non-pressure chronic ulcer of right heel and midfoot with fat layer exposed; L97.512 Non-pressure chronic ulcer of other part of right foot with fat layer exposed; E11.622 Type 2 diabetes mellitus with other skin ulcer; L97.312 Non-pressure chronic ulcer of right ankle with fat layer exposed; E11.42 Type 2 diabetes mellitus with diabetic polyneuropathy; E11.51 Type 2 diabetes mellitus with diabetic peripheral angiopathy without gangrene; I70.213 Atherosclerosis of native arteries of extremities with intermittent claudication, bilateral legs; I10 Essential (primary) hypertension; E78.5 Hyperlipidemia, unspecified; Z89.612 Acquired absence of left leg above knee
CPT/HCPCS: A6213; A9270; G0463

== ENCOUNTER 2024-07-01 09:55 | Day surgery (SDC) | payer OTHER ==
[2024-07-01] MEDS ORDERED: Lidocaine HCl 4% Cream 5 GM ONE (12:11)
[2024-07-01] MEDS ORDERED: Silver Nitr/Potassium Nitrate 1 EA APPL ONE (13:06)
== END 2024-07-01 23:00 | disposition home or self-care (01) ==
LOC: WOUND 09:55
DX: E11.622 Type 2 diabetes mellitus with other skin ulcer (principal); L97.312 Non-pressure chronic ulcer of right ankle with fat layer exposed; L98.492 Non-pressure chronic ulcer of skin of other sites with fat layer exposed; E11.621 Type 2 diabetes mellitus with foot ulcer; L97.412 Non-pressure chronic ulcer of right heel and midfoot with fat layer exposed; E11.42 Type 2 diabetes mellitus with diabetic polyneuropathy; E11.51 Type 2 diabetes mellitus with diabetic peripheral angiopathy without gangrene; I70.213 Atherosclerosis of native arteries of extremities with intermittent claudication, bilateral legs; Z89.612 Acquired absence of left leg above knee
CPT/HCPCS: A6213; A6214; A9270

== ENCOUNTER 2024-07-05 01:26 | Day surgery (SDC) | payer OTHER | END 2024-07-05 23:00 | disposition home or self-care (01) | LOC: WOUND 01:26 | DX: E11.621 Type 2 diabetes mellitus with foot ulcer (principal); L97.412 Non-pressure chronic ulcer of right heel and midfoot with fat layer exposed; L97.512 Non-pressure chronic ulcer of other part of right foot with fat layer exposed; E11.622 Type 2 diabetes mellitus with other skin ulcer; L97.312 Non-pressure chronic ulcer of right ankle with fat layer exposed; L97.812 Non-pressure chronic ulcer of other part of right lower leg with fat layer exposed; E11.42 Type 2 diabetes mellitus with diabetic polyneuropathy; E11.51 Type 2 diabetes mellitus with diabetic peripheral angiopathy without gangrene; I70.213 Atherosclerosis of native arteries of extremities with intermittent claudication, bilateral legs; I10 Essential (primary) hypertension; E78.5 Hyperlipidemia, unspecified; Z89.612 Acquired absence of left leg above knee | CPT/HCPCS: A6213; A6214 ==

== ENCOUNTER 2024-07-08 13:32 | Inpatient (IN) | payer OTHER ==
[~2024-07-08] VITALS: Ht 182.9 cm; Wt 90.9 kg
[2024-07-08 14:55] LABS: BASOPHILS ABSOLUTE AUTO 0.05 K/mm3 (0.00-0.23); BASOPHILS PERCENT AUTO 1 % (0-2); EOSINOPHILS PERCENT AUTO 3 % (0-6); Hematocrit 34.9 % (37.0-53.0); Hemoglobin 11.6 g/dL (13.5-17.5); IMMATURE GRAN ABSOLUTE AUTO 0.05 K/mm3 (0.00-0.10); IMMATURE GRAN PERCENT AUTO 1 % (0-1); LYMPHOCYTES ABSOLUTE AUTO 1.85 K/mm3 (0.84-5.20); LYMPHOCYTES PERCENT AUTO 19 % (21-46); MONOCYTES ABSOLUTE AUTO 0.64 K/mm3 (0.16-1.47); MONOCYTES PERCENT AUTO 6 % (4-13); Mean Corpuscular HGB 27.6 pg (26.0-34.0); Mean Corpuscular HGB Conc 33.2 g/dL (31.5-36.5); Mean Corpuscular Volume 83 fL (80-100); Mean Platelet Volume 11.3 fL (9.1-12.4); NEUTROPHILS ABSOLUTE AUTO 7.13 K/mm3 (1.96-9.15); NEUTROPHILS PERCENT AUTO 71 % (41-73); Platelet Count 363 K/mm3 (150-400); RDW Coefficient Variation 13.5 % (11.7-14.2); RDW Standard Deviation 40.6 fL (35.1-46.3); Red Blood Cell Count 4.21 M/mm3 (4.30-5.90); White Blood Cell Count 10.02 K/mm3 (4.00-11.30)
[2024-07-08 15:33] LABS: Albumin, Blood 3.6 g/dL (3.4-5.0); Albumin/Globulin Ratio 0.8 (0.8-1.8); Bilirubin, Total 0.4 mg/dL (0.1-1.0); Bun/Creatinine Ratio 29.2 (12.0-20.0); Calcium, Blood 9.8 mg/dL (8.5-10.1); Creatinine, Blood 1.13 mg/dL (0.60-1.20); Globulin, Blood 4.6 g/dL (2.2-4.0); Potassium, Blood 4.2 mmol/L (3.5-5.5); Total Protein, Blood 8.2 g/dL (6.4-8.2)
[2024-07-08] MEDS ORDERED: Vancomycin HCL 2,000 MG in NS 500 ML IV ONE (16:35)
[2024-07-08] MEDS ORDERED: OxyCODONE HCL 5 MG TAB PO PRN (17:35)
[2024-07-08 17:37] LABS: International Normalized Ratio 1.17; Prothrombin Time Results 12.4 Sec (9.7-11.5)
[2024-07-08 17:38] LABS: Anti-Xa UFH, PHA Monitoring >1.50 IU/mL
[2024-07-08] MEDS ORDERED: Piperacillin/Tazobactam Sod 3.375 GM in NS 100 ML IV ONE (17:55)
[2024-07-08] MEDS ORDERED: Heparin Sodium,Porcine/0.5 NS 500 ML IV SCH (18:25)
[2024-07-08 18:28] VITALS: BP 158/97
[2024-07-08] MEDS ORDERED: NS 250 ML IV PRN (18:50)
[2024-07-08] MEDS ORDERED: Lactobacil 2-S.Thermo-Bifido 1 1 Cap PO SCH (21:00)
[2024-07-09] MEDS ORDERED: Piperacillin/Tazobactam Sod 3.375 GM in NS 100 ML IV SCH
[2024-07-09 01:08] LABS: BASOPHILS ABSOLUTE AUTO 0.05 K/mm3 (0.00-0.23); BASOPHILS PERCENT AUTO 1 % (0-2); EOSINOPHILS ABSOLUTE AUTO 0.31 K/mm3 (0.00-0.68); EOSINOPHILS PERCENT AUTO 4 % (0-6); Hematocrit 35.7 % (37.0-53.0); Hemoglobin 11.5 g/dL (13.5-17.5); IMMATURE GRAN ABSOLUTE AUTO 0.04 K/mm3 (0.00-0.10); IMMATURE GRAN PERCENT AUTO 1 % (0-1); LYMPHOCYTES PERCENT AUTO 26 % (21-46); MONOCYTES ABSOLUTE AUTO 0.47 K/mm3 (0.16-1.47); MONOCYTES PERCENT AUTO 6 % (4-13); Mean Corpuscular HGB 26.9 pg (26.0-34.0); Mean Corpuscular HGB Conc 32.2 g/dL (31.5-36.5); Mean Corpuscular Volume 83 fL (80-100); Mean Platelet Volume 10.7 fL (9.1-12.4); NEUTROPHILS ABSOLUTE AUTO 4.61 K/mm3 (1.96-9.15); NEUTROPHILS PERCENT AUTO 63 % (41-73); Platelet Count 321 K/mm3 (150-400); RDW Coefficient Variation 13.4 % (11.7-14.2); RDW Standard Deviation 40.3 fL (35.1-46.3); Red Blood Cell Count 4.28 M/mm3 (4.30-5.90); White Blood Cell Count 7.38 K/mm3 (4.00-11.30)
[2024-07-09 01:29] LABS: Bun/Creatinine Ratio 27.4 (12.0-20.0); Calcium, Blood 9.2 mg/dL (8.5-10.1); Creatinine, Blood 1.13 mg/dL (0.60-1.20); Potassium, Blood 3.9 mmol/L (3.5-5.5)
[2024-07-09] MEDS ORDERED: Dose Adjust by Pharmacy XX STA ×2 (01:58→10:38)
[2024-07-09 02:30] VITALS: BP 139/85
[2024-07-09] MEDS ORDERED: Vancomycin HCL 1,500 MG in NS 250 ML IV SCH (05:00)
--- NOTE | 2024-07-09 06:11 | NUR ---
SHIFT SUMMARY NOC PT A/O X 4. PLEASANT AND COOPERATIVE WITH CARE. HS CBG 97, ORDER PLACED FOR Q6H CBG 0000 107 WHEN PT IS NPO AFTER MIDNIGHT FOR ANGIOGRAM/REVASCULARIZATION TODAY. PODIATRY CONSULT WITH DR POST CALLED IN TO ANSWERING SERVICE. WOUND CARE/DRESSING ORDERS IN PLACE FOR R FOOT DIABETIC FOOT ULCERS CONSISTING OF XEROFORM, KURLEX, MEDIPORE TAPE, AND NETTING. PT HAS HEPARIN INFUSING PER PHARMACY FOR RLE DVT. PT RECEIVING VANCO/ZOSYN IV ABX PER EMAR. PT RLE PAIN BEING MANAGED PER EMAR. PT CURRENTLY RESTING WITH BED IN LOWEST POSITION, AND CALL LIGHT WITHIN REACH.
[2024-07-09] MEDS ORDERED: Insulin Regular 100 UNIT/ML 10ML Vial SC SCH (07:30)
[2024-07-09 07:32] VITALS: BP 112/76
--- NOTE | 2024-07-09 10:23 | NUR ---
"Spiritual Care | Pt. Request Pt. is awake in bed when he welcomes my visit. Pt. is pleasant. Facilitate a life review and listen with intewrest and empathy. Pt. speaks about his deep personal tg. Matters of tg and belief are considered. Pt. verbalized an expectation of having a vascular procedure done today. Pt. displays confidence, is fully engaged and aware of his Diagnosis and verbalized his trust in God throughout the procedure. Prayed with the Pt. Pt. verbalized gratitude for the spiritual care visit."
[2024-07-09] MEDS ORDERED: Acetaminophen 325 MG TABLET PO PRN (15:30)
[2024-07-09 17:00] VITALS: BP 171/95
[2024-07-09 19:07] VITALS: BP 147/90
--- NOTE | 2024-07-09 20:05 | NUR ---
SHIFT SUMMARY PT IS A/OX4. NO ACUTE CHANGES THROUGHOUT THIS SHIFT. WOUNDS CARE COMPLETED THIS EVENING, WOUNDS CLEANSED AND COVERED PER WOUND CARE ORDERS. AWAITING ANGIO AND REVASC, RESCHEDULED FOR FRIDAY. PT SEEN BY PODIATRY THIS EVENING. CONTINUING IV ANTIBIOTICS AND HEPARIN INFUSING PER MAY. PT USING URINAL AT BEDSIDE. CALLS APPROPRIATELY USING THE CALL LIGHT.
[2024-07-09] MEDS ORDERED: Pregabalin 75 MG Cap PO SCH (21:00)
[2024-07-09] MEDS ORDERED: Gemfibrozil 600 MG Tab PO SCH (21:00)
[2024-07-09] MEDS ORDERED: Insulin Glargine-Yfgn 100 Unit/mL 3 ML SYR SC SCH (21:00)
[2024-07-09] MEDS ORDERED: Famotidine 20 MG Tab PO SCH (21:00)
[2024-07-10] MEDS ORDERED: Dose Adjust by Pharmacy XX STA (01:10)
--- NOTE | 2024-07-10 03:06 | NUR ---
SHIFT SUMMARY NO ACUTE EVENTS DURING THIS SHIFT. PT CONTINUES ON HEPARIN DRIP, MANAGED PER PHARMACY. IV ABX'S INFUSED ORDERED. PT C/O 11/07 RIGHT CHINO TIGHTNESS AND PAIN. MEDICATED WITH PRN PO OXYCODONE 10MG Q6HRS. PT REPORTS EFFECTIVE. HS B. BED AT THE LOWEST POSITION, CALL LIGHT W/I REACH. PT IS A/O X4, PLEASANT AND COOPERATIVE WITH CARE. PT IS ABLE TO MAKE HIS NEEDS KNOWN.
[2024-07-10 04:42] VITALS: BP 128/86
[2024-07-10 04:49] LABS: BASOPHILS ABSOLUTE AUTO 0.03 K/mm3 (0.00-0.23); BASOPHILS PERCENT AUTO 1 % (0-2); EOSINOPHILS ABSOLUTE AUTO 0.36 K/mm3 (0.00-0.68); EOSINOPHILS PERCENT AUTO 6 % (0-6); Hematocrit 33.4 % (37.0-53.0); Hemoglobin 10.9 g/dL (13.5-17.5); IMMATURE GRAN ABSOLUTE AUTO 0.02 K/mm3 (0.00-0.10); IMMATURE GRAN PERCENT AUTO 0 % (0-1); LYMPHOCYTES ABSOLUTE AUTO 1.62 K/mm3 (0.84-5.20); LYMPHOCYTES PERCENT AUTO 28 % (21-46); MONOCYTES ABSOLUTE AUTO 0.48 K/mm3 (0.16-1.47); MONOCYTES PERCENT AUTO 8 % (4-13); Mean Corpuscular HGB 27.4 pg (26.0-34.0); Mean Corpuscular HGB Conc 32.6 g/dL (31.5-36.5); Mean Corpuscular Volume 84 fL (80-100); Mean Platelet Volume 10.9 fL (9.1-12.4); NEUTROPHILS ABSOLUTE AUTO 3.33 K/mm3 (1.96-9.15); NEUTROPHILS PERCENT AUTO 57 % (41-73); Platelet Count 263 K/mm3 (150-400); RDW Coefficient Variation 13.2 % (11.7-14.2); RDW Standard Deviation 40.4 fL (35.1-46.3); Red Blood Cell Count 3.98 M/mm3 (4.30-5.90); White Blood Cell Count 5.84 K/mm3 (4.00-11.30)
[2024-07-10 05:20] LABS: Vancomycin, Trough 24.9 ug/mL (5.0-10.0)
--- NOTE | 2024-07-10 05:20 | NUR ---
@8297 THIS PIANO ACCOMPANIST RECEIVED A PHONE CALL FROM THE LAB, R/T CRITICAL LAB VALUE FOR JOSE WARD: 24.9. CALLED THEN PHARMACY AND ROSSI DYKES.
[2024-07-10 05:26] LABS: Bun/Creatinine Ratio 26.2 (12.0-20.0); Calcium, Blood 8.7 mg/dL (8.5-10.1); Creatinine, Blood 0.92 mg/dL (0.60-1.20); Free Thyroxine 1.21 ng/dL (0.70-1.60); Thyroid Stimulating Hormone 0.482 uIU/mL (0.360-4.800); Triiodothyronine, Free 2.5 pg/mL (2.18-3.98)
[2024-07-10 07:22] VITALS: BP 135/97
[2024-07-10] MEDS ORDERED: Multivitamins 1 Tab PO SCH (09:00)
[2024-07-10] MEDS ORDERED: Cholecalciferol 1000 Unit Tablet (=25MCG) PO SCH (09:00)
[2024-07-10] MEDS ORDERED: Lisinopril 20 MG Tab PO SCH (09:00)
[2024-07-10] MEDS ORDERED: Ezetimibe 10 MG Tab PO SCH (09:00)
[2024-07-10 15:15] VITALS: BP 175/104
[2024-07-10 16:39] LABS: Vancomycin, Random 16.9 ug/mL
[2024-07-10] MEDS ORDERED: HydrALAZINE HCl 20 MG / ML 1ML Vial IV PRN (16:45)
[2024-07-10 17:07] VITALS: BP 134/84
[2024-07-10] MEDS ORDERED: Vancomycin HCL 1,000 MG in NS 250 ML IV SCH (18:00)
--- NOTE | 2024-07-10 18:31 | NUR ---
SHIFT SUMMARY PT AWAITING REVASC OF HIS R LEG. PLAN FOR FRIDAY CURRENTLY. PT ON HEPARIN GTT WITH RATE AT 18.5 UNIT/KG/HR. NO CHANGES IN RATE WERE MADE THIS SHIFT TO GTT. MEDICATED FOR PAIN TWICE THIS SHIFT. SEE EMAR. PT VISITED BY FAMILY TODAY, THIS SEEMED TO HELP BOOST HIS MOOD AND HELP WITH HIS PAIN OVERALL. PT REFUSED SHOWER TODAY, BUT DID AN INDEPENDENT BED BATH. BP ELEVATED THIS AFTERNOON. RECHECKED PRIOR TO GIVING PRN HYDRALZINE, AND BP WAS IMPROVED. HYDRALAZINE HELD. NO OTHER ACUTE CHANGES IN ASSESSMENT AT THIS TIME. VS REVIEWED. CALL LIGHT IN REACH. DENIES OTHER NEEDS AT THIS TIME.
[2024-07-10 19:50] VITALS: BP 140/90
--- NOTE | 2024-07-10 21:49 | NUR ---
NEW T-ORDER FROM THE ON-CALL HOSPITALIST DR. DIETRICH: HOLD HS GLARGINE 27UNITS. NEW ORDER: GLARGINE 8UNITS NOW, ONCE. ENTERED TO [place], SEE EMAR.
[2024-07-10] MEDS ORDERED: Insulin Glargine-Yfgn 100 Unit/mL 3 ML SYR SC ONE (21:50)
--- NOTE | 2024-07-11 03:51 | NUR ---
SHIFT SUMMARY NO ACUTE EVENTS DURING THIS SHIFT. HS BG 97, THIS PLANT TAXONOMIST CALLED THE ON-CALL HOSPITALIST AND RECEIVED ONE TIME ORDER FOR GLARGINE 8 UNITS. SCHEDULED DOSE OF 24 UNITS WAS HELD PER 'S ORDER QUINN. PT C/O 11/07 RIGHT LE PAIN, MEDICATED WITH 10MG OXYCODONE Q6HRS PRN. PT REPORTS EFFECTIVE. WOUND CARE/DRESSING CHANGE COMPLETED ORDERED DURING THIS SHIFT. PT TOLERATED WELL. IV ABX'S INFUSED ORDERED. BED AT THE LOWEST POSITION, CALL LIGHT WITHIN REACH. PT IS A/O X4, ABLE TO MAKE HIS NEEDS KNOWN AND COOPERATIVE WITH CARE.
[2024-07-11 04:35] VITALS: BP 118/106
[2024-07-11 05:26] VITALS: BP 123/73
[2024-07-11 05:55] LABS: BASOPHILS ABSOLUTE AUTO 0.05 K/mm3 (0.00-0.23); BASOPHILS PERCENT AUTO 1 % (0-2); EOSINOPHILS ABSOLUTE AUTO 0.28 K/mm3 (0.00-0.68); EOSINOPHILS PERCENT AUTO 5 % (0-6); Hematocrit 33.1 % (37.0-53.0); Hemoglobin 10.7 g/dL (13.5-17.5); IMMATURE GRAN ABSOLUTE AUTO 0.03 K/mm3 (0.00-0.10); IMMATURE GRAN PERCENT AUTO 1 % (0-1); LYMPHOCYTES ABSOLUTE AUTO 1.49 K/mm3 (0.84-5.20); LYMPHOCYTES PERCENT AUTO 24 % (21-46); MONOCYTES ABSOLUTE AUTO 0.53 K/mm3 (0.16-1.47); MONOCYTES PERCENT AUTO 9 % (4-13); Mean Corpuscular HGB Conc 32.3 g/dL (31.5-36.5); Mean Corpuscular Volume 83 fL (80-100); Mean Platelet Volume 10.9 fL (9.1-12.4); NEUTROPHILS ABSOLUTE AUTO 3.76 K/mm3 (1.96-9.15); NEUTROPHILS PERCENT AUTO 61 % (41-73); Platelet Count 219 K/mm3 (150-400); RDW Coefficient Variation 13.2 % (11.7-14.2); RDW Standard Deviation 40.3 fL (35.1-46.3); Red Blood Cell Count 3.97 M/mm3 (4.30-5.90); White Blood Cell Count 6.14 K/mm3 (4.00-11.30)
[2024-07-11 06:16] LABS: Bun/Creatinine Ratio 26.6 (12.0-20.0); Calcium, Blood 9.5 mg/dL (8.5-10.1); Creatinine, Blood 0.79 mg/dL (0.60-1.20); Potassium, Blood 4.1 mmol/L (3.5-5.5)
[2024-07-11] MEDS ORDERED: Dose Adjust by Pharmacy XX STA (06:39)
[2024-07-11 07:29] VITALS: BP 150/85
[2024-07-11 15:29] VITALS: BP 159/93
--- NOTE | 2024-07-11 16:49 | NUR ---
SHIFT SUMMARY PT REMAINS ON HEPARIN GTT. NO CHANGES IN RATE TODAY. WOUND CARE COMPLETED TO R FOOT. MEDICATED FOR PAIN TWICE THIS SHIFT. SEE EMAR. PT IS PLEASANT & COOPERATIVE. VISITED BY FAMILY TWICE TODAY. PLAN TO BE NPO AT MIDNIGHT FOR POSSIBLE REVASC TOMORROW. PT EDUCATED ON THIS AND UNDERSTANDS. NO OTHER ACUTE CHANGES IN ASSESSMENT AT THIS TIME. VS REVIEWED. CALL LIGHT IN REACH. DENIES OTHER NEEDS AT THIS TIME.
[2024-07-11] MEDS ORDERED: Docusate Sodium 100 MG Cap PO SCH (17:35)
[2024-07-11 19:21] VITALS: BP 163/93
--- NOTE | 2024-07-11 21:42 | NUR ---
NEW T-ORDER RECEIVED FROM THE ON-CALL HOSPITALIST: - CHANGE GLARGINE 24UNITS AT BEDTIME TO 8 UNITS AT BEDTIME. ENTERED TO [employer], SEE EMAR.
[2024-07-11] MEDS ORDERED: Insulin Glargine-Yfgn 100 Unit/mL 3 ML SYR SC SCH (21:50)
[2024-07-12] VITALS (8 sets, daily range): BP systolic 99–151; BP diastolic 77–91
--- NOTE | 2024-07-12 03:22 | NUR ---
SHIFT SUMMARY NO ACUTE EVENTS DURING THIS SHIFT. HS BG 121. NEW T-ORDER FROM ON-CALL HOSPITALIST WAS TO CHANGE THE 24U GLARGINE AT HS TO 8 UNITS GLARGINE AT HS. ADMINISTERED THE 8UNITS @HS. MEDICATED FOR 8/10 PAIN IN RLE PER EMAR. PT IS NPO AFTER MIDNIGHT FOR REVASCULARIZATION AND RIGHT 5TH TOE AMPUTATION PROCEDURES. PT VERBALIZED UNDERSTANDING. HEPARIN DRIP ADMINISTERED ORDERED, NO RATE CHANGES DURING THIS SHIFT. T-ORDER IS TO HOLD HEPARIN 1HR PRIOR TO AMPUTATION/SURGERY. BED AT THE LOWEST POSITION, CALL LIGHT W/I REACH. PT IS ABLE TO MAKE HIS NEEDS KNOWN AND COOPERATIVE WITH CARE.
[2024-07-12] MEDS ORDERED: Dose Adjust by Pharmacy XX STA ×2 (05:36→05:38)
[2024-07-12 06:59] LABS: BASOPHILS ABSOLUTE AUTO 0.04 K/mm3 (0.00-0.23); BASOPHILS PERCENT AUTO 1 % (0-2); EOSINOPHILS ABSOLUTE AUTO 0.31 K/mm3 (0.00-0.68); EOSINOPHILS PERCENT AUTO 6 % (0-6); Hematocrit 31.7 % (37.0-53.0); Hemoglobin 10.3 g/dL (13.5-17.5); IMMATURE GRAN ABSOLUTE AUTO 0.03 K/mm3 (0.00-0.10); IMMATURE GRAN PERCENT AUTO 1 % (0-1); LYMPHOCYTES ABSOLUTE AUTO 1.47 K/mm3 (0.84-5.20); LYMPHOCYTES PERCENT AUTO 26 % (21-46); MONOCYTES ABSOLUTE AUTO 0.45 K/mm3 (0.16-1.47); MONOCYTES PERCENT AUTO 8 % (4-13); Mean Corpuscular HGB 27.1 pg (26.0-34.0); Mean Corpuscular HGB Conc 32.5 g/dL (31.5-36.5); Mean Corpuscular Volume 83 fL (80-100); Mean Platelet Volume 12.3 fL (9.1-12.4); NEUTROPHILS ABSOLUTE AUTO 3.34 K/mm3 (1.96-9.15); NEUTROPHILS PERCENT AUTO 59 % (41-73); Platelet Count 205 K/mm3 (150-400); RDW Coefficient Variation 13.5 % (11.7-14.2); RDW Standard Deviation 41.1 fL (35.1-46.3); White Blood Cell Count 5.64 K/mm3 (4.00-11.30)
[2024-07-12 07:06] LABS: Bun/Creatinine Ratio 21.3 (12.0-20.0); Calcium, Blood 9.4 mg/dL (8.5-10.1); Creatinine, Blood 1.08 mg/dL (0.60-1.20)
[2024-07-12] MEDS ORDERED: NS 1,000 ML IV ONE ×2 (11:44→11:45)
[2024-07-12] MEDS ORDERED: NS 500 ML IV ONE (11:44)
[2024-07-12] MEDS ORDERED: Heparin Sodium 1000 Units/ML 10ML MDV ONE ×2 (11:44→14:53)
[2024-07-12 12:13] LABS: Hemoglobin 11.3 g/dL (13.5-17.5); Platelet Count 221 K/mm3 (150-400)
[2024-07-12] MEDS ORDERED: Midazolam HCl 1MG / ML 2ML Vial ONE ×2 (14:05→14:42)
[2024-07-12] MEDS ORDERED: FentaNYL Citrate 50 MCG/ML 2 ML Injection ONE ×2 (14:05→14:43)
[2024-07-12] MEDS ORDERED: Nitroglycerin 2 MG/20 ML BTL ONE (14:38)
[2024-07-12] MEDS ORDERED: Verapamil HCL 2.5 MG/ML 2ML Injection ONE (14:38)
--- NOTE | 2024-07-12 16:35 | NUR ---
ARRIVAL TO PCU: Report recieved from [facility] RN. Patient arrived from the blood bank laboratory technologist after a revasc of the RLE. He is alert and oriented x4. Reports minimal 2/10 pain in his left groin site and 5/10 pain in his right foot-he is medicated with Oxycodone. Biox is high 90s on RA. BT+. He has a left AKA. Left groin site with gauze and opsite dressing has scant amount of oozing under dressing, site is soft and non-tender. He has a right PT site with algeniate dressing and opsite-CDI. He has multiple wounds to right foot, PICs in chart. He denies needs at this time. Call light in reach.
[2024-07-12 18:17] LABS: Vancomycin, Trough 19.7 ug/mL (5.0-10.0)
[2024-07-12] MEDS ORDERED: Insulin Glargine-Yfgn 100 Unit/mL 3 ML SYR SC SCH (21:00)
[2024-07-12] MEDS ORDERED: Vancomycin HCL 1,500 MG in NS 250 ML IV SCH (21:00)
[2024-07-13] VITALS (8 sets, daily range): BP systolic 119–161; BP diastolic 76–102
[2024-07-13] MEDS ORDERED: Dose Adjust by Pharmacy XX STA ×3 (00:40→14:34)
[2024-07-13 03:50] LABS: BASOPHILS ABSOLUTE AUTO 0.03 K/mm3 (0.00-0.23); BASOPHILS PERCENT AUTO 1 % (0-2); EOSINOPHILS ABSOLUTE AUTO 0.27 K/mm3 (0.00-0.68); EOSINOPHILS PERCENT AUTO 5 % (0-6); Hematocrit 32.3 % (37.0-53.0); Hemoglobin 10.3 g/dL (13.5-17.5); IMMATURE GRAN ABSOLUTE AUTO 0.03 K/mm3 (0.00-0.10); IMMATURE GRAN PERCENT AUTO 1 % (0-1); LYMPHOCYTES ABSOLUTE AUTO 1.53 K/mm3 (0.84-5.20); LYMPHOCYTES PERCENT AUTO 26 % (21-46); MONOCYTES ABSOLUTE AUTO 0.47 K/mm3 (0.16-1.47); MONOCYTES PERCENT AUTO 8 % (4-13); Mean Corpuscular HGB 26.8 pg (26.0-34.0); Mean Corpuscular HGB Conc 31.9 g/dL (31.5-36.5); Mean Corpuscular Volume 84 fL (80-100); Mean Platelet Volume 10.8 fL (9.1-12.4); NEUTROPHILS ABSOLUTE AUTO 3.51 K/mm3 (1.96-9.15); NEUTROPHILS PERCENT AUTO 60 % (41-73); Platelet Count 211 K/mm3 (150-400); RDW Coefficient Variation 13.9 % (11.7-14.2); RDW Standard Deviation 42.1 fL (35.1-46.3); Red Blood Cell Count 3.85 M/mm3 (4.30-5.90); White Blood Cell Count 5.84 K/mm3 (4.00-11.30)
[2024-07-13 04:17] LABS: Calcium, Blood 9.4 mg/dL (8.5-10.1); Creatinine, Blood 0.93 mg/dL (0.60-1.20); Potassium, Blood 4.2 mmol/L (3.5-5.5)
--- NOTE | 2024-07-13 07:01 | NUR ---
PT STABLE THROUGHOUT SHIFT. RT LEG DISTAL CMS IMPROVED AND REMAINS INTACT. CAP REFILL <3SEC. WOUND CARE PERFORMED PER ORDER. PT WAS MEDICATED FOR PAIN X1 WITH GOOD RELIEF. PT HAD GOOD URINARY OUTPUT USING URINAL INDEPENDENTLY BEDSIDE. PT DID REQUIRE SUPPLEMENTAL O2 2LNC WHILE SLEEPING D/T DESATURATION INTO THE LOW 80S. ON O2 PT SATS REMAINED >93%. PT VITALS OTHERWISE REMAINED WNL. PT REMAINED IN SINUS RHYTHM. PT AOX4, USES CALL LIGHT APPROPRIATELY. PT PLEASANT AND COOPERATIVE. PT CONTINUES TO TOLERATE HEPARIN GTT AND IV ABX INFUSIONS WELL. NO S/S BLEEDING/BRUISE. LT GROIN ANGIO SITE REMAINS CLOSED AND INTACT, NO SWELLING, SOME MILD TENDERNESS NOTED ON PALPATION.
--- NOTE | 2024-07-13 12:47 | NUR ---
TRANSFER NOTE: PT A/OX4 ABLE TO MAKE HIS NEEDS KNOWN. HE IS ON RA WITH NO REPORTS OF SOB. HE IS ON TELE IN NSR WITH NO REPORTS OF CP. WOUND CARE DONE THIS AM PER ORDERS. HEPARIN INFUSING PER EMAR. PT WHEELCHAIR AT BASELINE BUT USES THE BSC IND. CALLS APPROPRIATELY.
[2024-07-13] MEDS ORDERED: Piperacillin/Tazobactam Sod 3.375 GM in NS 100 ML IV SCH ×2 (14:30→16:00)
--- NOTE | 2024-07-13 17:11 | NUR ---
PT HAS HAD MINIMAL C/O PAIN SEE EMAR FOR DETAILS. BP WAS HIGH, GAVE PRN MEDICATIONS PRESCRIBED WITH EFFECT
[2024-07-13] MEDS ORDERED: Cyclobenzaprine HCl 10 MG Tab PO PRN (19:35)
[2024-07-14] VITALS (13 sets, daily range): BP systolic 118–160; BP diastolic 75–93
--- NOTE | 2024-07-14 04:39 | NUR ---
SHIFT SUMMARY: PT AOX4 CALLS APPROPRIATELY AND ABLE TO MAKE NEEDS KNOWN. DRESSING IS CDI, PT MADE NPO AT MIDNIGHT TOLERATING DIET WELL. PT TOLERATING MEDICATIONS WELL. COMPLAINTS OF PAIN AND SPASMS, MEDICATED PER EMR. NO ACUTE EVENTS OVERNIGHT. PT IN BED SLEEPING, BED IN LOWEST POSITION, CALL LIGHT IN REACH. CONTINUING CARE.
[2024-07-14 09:40] LABS: BASOPHILS ABSOLUTE AUTO 0.03 K/mm3 (0.00-0.23); BASOPHILS PERCENT AUTO 1 % (0-2); EOSINOPHILS ABSOLUTE AUTO 0.35 K/mm3 (0.00-0.68); EOSINOPHILS PERCENT AUTO 6 % (0-6); Hemoglobin 9.4 g/dL (13.5-17.5); IMMATURE GRAN ABSOLUTE AUTO 0.05 K/mm3 (0.00-0.10); IMMATURE GRAN PERCENT AUTO 1 % (0-1); LYMPHOCYTES PERCENT AUTO 29 % (21-46); MONOCYTES ABSOLUTE AUTO 0.51 K/mm3 (0.16-1.47); MONOCYTES PERCENT AUTO 9 % (4-13); Mean Corpuscular HGB 27.6 pg (26.0-34.0); Mean Corpuscular HGB Conc 32.4 g/dL (31.5-36.5); Mean Corpuscular Volume 85 fL (80-100); Mean Platelet Volume 11.3 fL (9.1-12.4); NEUTROPHILS ABSOLUTE AUTO 2.99 K/mm3 (1.96-9.15); NEUTROPHILS PERCENT AUTO 54 % (41-73); Platelet Count 189 K/mm3 (150-400); RDW Coefficient Variation 14.1 % (11.7-14.2); Red Blood Cell Count 3.41 M/mm3 (4.30-5.90); White Blood Cell Count 5.53 K/mm3 (4.00-11.30)
[2024-07-14 09:58] LABS: Vancomycin, Trough 16.3 ug/mL (5.0-10.0)
[2024-07-14 09:59] LABS: Bun/Creatinine Ratio 36.1 (12.0-20.0); Calcium, Blood 9.7 mg/dL (8.5-10.1); Creatinine, Blood 0.83 mg/dL (0.60-1.20); Potassium, Blood 4.1 mmol/L (3.5-5.5)
--- NOTE | 2024-07-14 16:05 | NUR ---
PATIENT TO OR NOW
[2024-07-14] MEDS ORDERED: Bupivacaine 0.5% W/EPI 1:200000 SDV 30 ML Vial ONE (16:13)
[2024-07-14] MEDS ORDERED: Lidocaine HCl 1% 30 ML SDV ONE (16:13)
[2024-07-14] MEDS ORDERED: Bupivacaine 0.5% Inj 50 ML Vial ONE (16:14)
[2024-07-14] MEDS ORDERED: FentaNYL Citrate 50 MCG/ML 2 ML Injection ONE (16:23)
[2024-07-14] MEDS ORDERED: Midazolam HCl 1MG / ML 2ML Vial ONE (16:23)
--- NOTE | 2024-07-14 16:24 | NUR ---
PT HAS 20G L FOREARM AND 22 G TO RIGHT FOREARM. BOTH FLUSH WELL. WILL USE THE 20G IV FOR OR.
[2024-07-14] MEDS ORDERED: Lactated Ringer's 1,000 ML IV ONE (16:25)
[2024-07-14] MEDS ORDERED: Lactated Ringer's 1,000 ML IV SCH (16:25)
--- NOTE | 2024-07-14 16:32 | NUR ---
PT BROUGHT FROM FLOOR TO DAY SURGERY FOR PROCEDURE WITH DR POST. HEPARIN DRIP STOPPED JUST BEFORE BRINGING PT TO DAY SURGERY. ANESTHESIA AND DR POST AWARE AND OKAY TO PROCEED. History, Chart, Medications and Allergies reviewed before start of procedure. Lungs clear T/O to Auscultation. Patient confirms NPO status and agrees with scheduled surgery. Pre-Op teaching done. Pt verbalizes understanding. PT BELONGINGS LEFT IN PERSONAL ROOM ON MEDICAL FLOOR.
[2024-07-14] MEDS ORDERED: ePHEDrine Sulfate 50 MG/ML 1ML Injection IV PRN (17:00)
[2024-07-14] MEDS ORDERED: Ondansetron HCl 2 MG / ML 2ML Vial IV PRN (17:00)
[2024-07-14] MEDS ORDERED: FentaNYL Citrate 50 MCG/ML 2 ML Injection IV PRN ×2 (17:00)
--- NOTE | 2024-07-14 18:29 | NUR ---
TOE AMPUTATION DONE, WOUND VAC TO FOOT, EATING DINNER NOW, PLEASANT TO CARE, CALL LIGHT WITH IN REACH, CLEARLY MAKES NEEDS KNOWN, MEDICATED WITH PRN OXY AND FLEXERIL THROUGH THE DAY, CALL LIGHT WITH IN REACH, WILL RELAY TO PM RN
[2024-07-15] VITALS (8 sets, daily range): BP systolic 109–160; BP diastolic 72–94
[2024-07-15] MEDS ORDERED: FentaNYL Citrate 50 MCG/ML 2 ML Injection IV PRN (01:40)
[2024-07-15 03:15] LABS: BASOPHILS ABSOLUTE AUTO 0.04 K/mm3 (0.00-0.23); BASOPHILS PERCENT AUTO 1 % (0-2); EOSINOPHILS PERCENT AUTO 7 % (0-6); Hematocrit 29.9 % (37.0-53.0); Hemoglobin 9.6 g/dL (13.5-17.5); IMMATURE GRAN ABSOLUTE AUTO 0.03 K/mm3 (0.00-0.10); IMMATURE GRAN PERCENT AUTO 1 % (0-1); LYMPHOCYTES ABSOLUTE AUTO 1.94 K/mm3 (0.84-5.20); LYMPHOCYTES PERCENT AUTO 35 % (21-46); MONOCYTES ABSOLUTE AUTO 0.49 K/mm3 (0.16-1.47); MONOCYTES PERCENT AUTO 9 % (4-13); Mean Corpuscular HGB 26.8 pg (26.0-34.0); Mean Corpuscular HGB Conc 32.1 g/dL (31.5-36.5); Mean Corpuscular Volume 84 fL (80-100); Mean Platelet Volume 10.9 fL (9.1-12.4); NEUTROPHILS ABSOLUTE AUTO 2.65 K/mm3 (1.96-9.15); NEUTROPHILS PERCENT AUTO 48 % (41-73); Platelet Count 205 K/mm3 (150-400); RDW Coefficient Variation 14.2 % (11.7-14.2); RDW Standard Deviation 42.9 fL (35.1-46.3); Red Blood Cell Count 3.58 M/mm3 (4.30-5.90); White Blood Cell Count 5.55 K/mm3 (4.00-11.30)
[2024-07-15 03:39] LABS: Calcium, Blood 9.3 mg/dL (8.5-10.1); Creatinine, Blood 0.89 mg/dL (0.60-1.20); Potassium, Blood 4.1 mmol/L (3.5-5.5)
[2024-07-15] MEDS ORDERED: Dose Adjust by Pharmacy XX STA ×2 (04:20→12:47)
--- NOTE | 2024-07-15 05:04 | NUR ---
SHIFT SUMMARY: PT AOX 4 CALLS APPROPRIATELY ABLE TO MAKE NEEDS KNOWN. IND TO BSC AND USING THE URINAL. NO OUTPUT IN WOUND VAC THOUGH DRESSING IS CDI. PT COMPLAINT OF PAIN SOME MEDICATION GIVEN FOR BREAKTHROUGH AND REGULAR PAIN. TOLERATING MEDICATIONS WELL. PLEASANT MOOD, SLEEPING WELL. PT ANXIOUS ABOUT SOME FOLLOW UP CARE BUT OTHERWISE DOING WELL. NO ACUTE EVENTS OVERNIGHT. PT IN BED SLEEPING, BED IN LOWEST POSITION, CALL LIGHT IN REACH. CONTINUING CARE.
--- NOTE | 2024-07-15 19:57 | NUR ---
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 PT POD1 FROM R TOE AMPUTATION. PT NON WEIGHT BEARING ON R LEG. WOUND VAC ON. FOOT IS WRAPPED, WOUND VAC TO BE CHANGED POD3 PER ORDER. DRESSING IN PLACE AND INTACT AND WRAPPED IN JAMARI WRAP. PT REPORTS PAIN, PAIN MANAGED PER EMAR. PT HAS HEPARIN DRIP, DOSE TITRATED AND VERIFIED TODAY WITH ANOTHER RN. NEW IV WAS PLACED TODAY, NOW LEAKING, LET NIGHT RN KNOW, NEEDS TO BE REMOVED. PT REPORTS SON WILL BRING IN PROSTHETIC FOR AMBULATION TOMORROW AROUND 1PM. VSS. PT ACHS BLOOD SUGARS, CORRECTED VIA SLIDING SCALE. PT USES URINAL TO VOID AND IS CONT. PT USES WHEELCHAIR AT BASELINE PT ON TELE. PT ON RA. PT IN BED, BED IN LOWEST POSITON. CALL LIGHT IN REACH.
[2024-07-15] MEDS ORDERED: Clarify Drug Order XX ONE (20:35)
[2024-07-16 00:15] VITALS: BP 123/76
[2024-07-16] MEDS ORDERED: Clarify Drug Order XX ONE (02:25)
[2024-07-16 04:09] VITALS: BP 126/83
--- NOTE | 2024-07-16 04:21 | NUR ---
SHIFT SUMMARY PATIENT HAD NO ACUTE CHANGES. ALERT ORIENTED AND BEDREST. LEFT ABOVE KNEE AMPUTAION. RIGHT FOOT 5TH TOE AMP WITH WOUND VAC . DENIES CHEST PAIN, SOB, AND N/V. VSS/AFEBRILE. REPORTED RIGHT FOOT PAIN AND OXYCODONE 10 MG GIVEN PER EMAR. PIVS INTACT AFTER MULTIPLE ATTEMPTS WITH SUCCESS BY PCU CHARGE. HEPARIN INFUSING @ 48.5 mL/HR MANAGE BY PHARMACY. IV ABXS INFUSED. CBG 138. TELE MONITOR SR FIRST DEGREE, BBB @ 81. SALAS PATENT AND DRAINING TO GRAVITY. CALL LIGHT IN REACH. BED IN LOWEST POSITION. WILL CONTINUE TO MONITOR UNTIL DAY SHIFT NURSE ASSUMES CARE.
[2024-07-16 05:51] LABS: Hematocrit 29.3 % (37.0-53.0); Hemoglobin 9.4 g/dL (13.5-17.5); Mean Platelet Volume 11.3 fL (9.1-12.4); Platelet Count 183 K/mm3 (150-400)
[2024-07-16 07:54] VITALS: BP 137/84
[2024-07-16 08:24] LABS: BASOPHILS ABSOLUTE AUTO 0.03 K/mm3 (0.00-0.23); BASOPHILS PERCENT AUTO 1 % (0-2); EOSINOPHILS ABSOLUTE AUTO 0.32 K/mm3 (0.00-0.68); EOSINOPHILS PERCENT AUTO 7 % (0-6); Hematocrit 29.2 % (37.0-53.0); Hemoglobin 9.6 g/dL (13.5-17.5); IMMATURE GRAN ABSOLUTE AUTO 0.04 K/mm3 (0.00-0.10); IMMATURE GRAN PERCENT AUTO 1 % (0-1); LYMPHOCYTES ABSOLUTE AUTO 1.65 K/mm3 (0.84-5.20); LYMPHOCYTES PERCENT AUTO 38 % (21-46); MONOCYTES ABSOLUTE AUTO 0.36 K/mm3 (0.16-1.47); MONOCYTES PERCENT AUTO 8 % (4-13); Mean Corpuscular HGB 28.2 pg (26.0-34.0); Mean Corpuscular HGB Conc 32.9 g/dL (31.5-36.5); Mean Corpuscular Volume 86 fL (80-100); Mean Platelet Volume 12.2 fL (9.1-12.4); NEUTROPHILS ABSOLUTE AUTO 1.93 K/mm3 (1.96-9.15); NEUTROPHILS PERCENT AUTO 45 % (41-73); Platelet Count 190 K/mm3 (150-400); RDW Coefficient Variation 14.2 % (11.7-14.2); RDW Standard Deviation 44.2 fL (35.1-46.3); Red Blood Cell Count 3.41 M/mm3 (4.30-5.90); White Blood Cell Count 4.33 K/mm3 (4.00-11.30)
[2024-07-16 08:33] LABS: Bun/Creatinine Ratio 45.1 (12.0-20.0); Calcium, Blood 9.2 mg/dL (8.5-10.1); Creatinine, Blood 0.75 mg/dL (0.60-1.20); Potassium, Blood 3.8 mmol/L (3.5-5.5)
[2024-07-16] MEDS ORDERED: Dose Adjust by Pharmacy XX STA ×2 (08:43→14:35)
[2024-07-16 11:57] VITALS: BP 148/90
--- NOTE | 2024-07-16 12:51 | NUR ---
ADMINISTERING PT ANTIBIOTICS ZOSYN, ORDER SPECIFICALLY INSTRUCTED 25ML/HR. CALL LENORA IN PHARMACY, WHICH INSTRUCTED RATE TO BE 200ML/HR FOR DURATION OF 30 MINS PER DOSE. ORDER CHANGED.
[2024-07-16 14:41] LABS: Vancomycin, Trough 20.2 ug/mL (5.0-10.0)
--- NOTE | 2024-07-16 15:26 | NUR ---
SPOKE TO DR. POST TO GET WOUND MEASUREMENTS. WOUND IS 5 CM X 7 CM X 2 CM DEEP.
[2024-07-16 15:48] VITALS: BP 153/85
--- NOTE | 2024-07-16 17:51 | NUR ---
SHIFT SUMMARY PT AOX4, COOPERATIVE, ABLE TO MAKE NEEDS KNOWN. PT USES COMMODE APPROPRITELY IND. RUNNING HEPARIN, SEE EMAR. TAKES MEDS WHOLE WITH FLUIDS. WOUND CARE ORDERS PLACED. PT DOES REPORT MD DOES NOT WANT DRESSING CHANGED UNTIL WOUND VAC REPLACED TOMORROW. TOELRATING PO AND IV MEDCIATION. BED IN LOWEST POSITION CALL LIGHT WITHIN REACH.
[2024-07-16] MEDS ORDERED: MOUNJARO 5 MG/0.5 ML SC SCH (18:00)
[2024-07-16 19:27] VITALS: BP 140/79
[2024-07-16] MEDS ORDERED: Vancomycin HCL 1,500 MG in NS 250 ML IV SCH (21:00)
[2024-07-17 00:21] VITALS: BP 128/78
[2024-07-17 03:04] LABS: Hematocrit 28.6 % (37.0-53.0); Hemoglobin 9.4 g/dL (13.5-17.5); Mean Platelet Volume 11.3 fL (9.1-12.4); Platelet Count 188 K/mm3 (150-400)
[2024-07-17 04:08] VITALS: BP 139/90
[2024-07-17] MEDS ORDERED: Dose Adjust by Pharmacy XX STA ×2 (04:21→11:14)
--- NOTE | 2024-07-17 06:20 | NUR ---
Shift Summary No acute changes. Pt medicated for RLE pain. Wound vac ordered to be changed POD #3 which will be today. Pt using BSC independently. On cont. heparin drip. He had one well formed BM this AM.
[2024-07-17 07:35] VITALS: BP 117/75
[2024-07-17 08:03] LABS: BASOPHILS ABSOLUTE AUTO 0.04 K/mm3 (0.00-0.23); BASOPHILS PERCENT AUTO 1 % (0-2); EOSINOPHILS ABSOLUTE AUTO 0.38 K/mm3 (0.00-0.68); EOSINOPHILS PERCENT AUTO 8 % (0-6); Hematocrit 29.5 % (37.0-53.0); Hemoglobin 9.6 g/dL (13.5-17.5); IMMATURE GRAN ABSOLUTE AUTO 0.04 K/mm3 (0.00-0.10); IMMATURE GRAN PERCENT AUTO 1 % (0-1); LYMPHOCYTES PERCENT AUTO 32 % (21-46); MONOCYTES PERCENT AUTO 9 % (4-13); Mean Corpuscular HGB 27.2 pg (26.0-34.0); Mean Corpuscular HGB Conc 32.5 g/dL (31.5-36.5); Mean Corpuscular Volume 84 fL (80-100); Mean Platelet Volume 10.9 fL (9.1-12.4); NEUTROPHILS ABSOLUTE AUTO 2.27 K/mm3 (1.96-9.15); NEUTROPHILS PERCENT AUTO 49 % (41-73); Platelet Count 189 K/mm3 (150-400); RDW Coefficient Variation 14.4 % (11.7-14.2); RDW Standard Deviation 43.4 fL (35.1-46.3); Red Blood Cell Count 3.53 M/mm3 (4.30-5.90); White Blood Cell Count 4.63 K/mm3 (4.00-11.30)
[2024-07-17 08:27] LABS: Bun/Creatinine Ratio 32.7 (12.0-20.0); Calcium, Blood 9.5 mg/dL (8.5-10.1); Creatinine, Blood 0.89 mg/dL (0.60-1.20)
[2024-07-17 16:01] VITALS: BP 152/95
--- NOTE | 2024-07-17 16:07 | NUR ---
SHIFT SUMMARY: PATIENT A/OX4, PLEASANT AND COOPERATIVE c CARE. PATIENT DENIES CP/PRESSURE, SOB, N/V AND DIZZINESS. TELE DC'D PER ORDER. PATIENT REPORTS PAIN TO R FOOT, MEDICATED FOR PAIN PER EMAR c GOOD EFFECT. PATIENT POD#3 TO R 5TH TOE AND METATARSAL AMPUTEE, WOUND VAC AND DRESSING CHANGED PER ORDER. MIPELEX DRESSING IN PLACED TO COCCYX FOR PROTECTION. PATIENT ON HEPARIN GTT, RATE CONTROLLED BY PHARMACIST. PATIENT WORKED c PT EVAL TODAY, RECOMMENDING SNF. PATIENT RECEIVED IV ABX/SCHEDULED MEDS PER EMAR. VITAL SIGNS REVIEWED. CALL LIGHT IN REACH.
[2024-07-17] MEDS ORDERED: Apixaban 5 MG Tab PO SCH (17:00)
[2024-07-17 19:06] VITALS: BP 138/108
--- NOTE | 2024-07-18 03:17 | NUR ---
AEROSPACE MEDICINE PHYSICIAN SUMMARY BPELEVATED, OTHERWISE VSS. RECEIVED PAIN MED. WILL RECHECK BP. SEE DOCUMENTAION FOR FOLLOW UP. ALERT AND ORIENTED. COOPERATIVE WITH CARE. DIABETIC, INSULIN COVERAGE. ABLE TO GET OOB TO COMMODE. ABLE TO REPOSITION SELF IN BED FOR COMFORT. RECEIVING PAIN MEDS AT INTERVALS AND ROUTINELY -SEE MAY. WOUND VAC IN USE POST OPERATION OF RIGHT FOOT. USES PROSTHESIS FOR LEFT LEG (AMPUTEE). RECEIVING ANTIBIOTICS. HAS BEEN RESTING QUIETLY AT IN [facility]. CALL LIGHT IN REACH, RAILS UP X 2 AND BED IN LOW POSITION FOR SAFETY. WILL CONT TO MONITOR
[2024-07-18 03:25] VITALS: BP 131/84
[2024-07-18 07:23] VITALS: BP 150/85
[2024-07-18 08:31] LABS: BASOPHILS ABSOLUTE AUTO 0.03 K/mm3 (0.00-0.23); BASOPHILS PERCENT AUTO 1 % (0-2); EOSINOPHILS ABSOLUTE AUTO 0.34 K/mm3 (0.00-0.68); EOSINOPHILS PERCENT AUTO 7 % (0-6); Hematocrit 31.2 % (37.0-53.0); IMMATURE GRAN ABSOLUTE AUTO 0.04 K/mm3 (0.00-0.10); IMMATURE GRAN PERCENT AUTO 1 % (0-1); LYMPHOCYTES ABSOLUTE AUTO 1.37 K/mm3 (0.84-5.20); LYMPHOCYTES PERCENT AUTO 29 % (21-46); MONOCYTES ABSOLUTE AUTO 0.44 K/mm3 (0.16-1.47); MONOCYTES PERCENT AUTO 9 % (4-13); Mean Corpuscular HGB 26.7 pg (26.0-34.0); Mean Corpuscular HGB Conc 32.1 g/dL (31.5-36.5); Mean Corpuscular Volume 83 fL (80-100); NEUTROPHILS ABSOLUTE AUTO 2.46 K/mm3 (1.96-9.15); NEUTROPHILS PERCENT AUTO 53 % (41-73); Platelet Count 209 K/mm3 (150-400); RDW Coefficient Variation 14.4 % (11.7-14.2); RDW Standard Deviation 43.4 fL (35.1-46.3); Red Blood Cell Count 3.75 M/mm3 (4.30-5.90); White Blood Cell Count 4.68 K/mm3 (4.00-11.30)
[2024-07-18 08:35] LABS: Bun/Creatinine Ratio 36.2 (12.0-20.0); Calcium, Blood 10.2 mg/dL (8.5-10.1); Creatinine, Blood 0.86 mg/dL (0.60-1.20); Potassium, Blood 4.4 mmol/L (3.5-5.5)
[2024-07-18 15:37] VITALS: BP 141/89
--- NOTE | 2024-07-18 17:18 | NUR ---
SHIFT SUMMARY: PATIENT HAS HAD NO NEW CHANGES THIS SHIFT. PATIENT A/OX4, PLEASANT AND COOPERATIVE c CARE. PATIENT PAIN TO R FOOT, CONTROLLED c EMAR PAIN MEDS. PATIENT WOUND VAC TO R FOOT IN PLACED WITHOUT ANY DRAINAGE NOTED TO TUBING WELL TO CANISTER. PATIENT HAS GREAT APPETITE, CONTINENT OF BAB, USES URINAL/BSC INDEPENDENTLY. PATIENT RECEIVED SCHEDULED MEDS PER EMAR. VITAL SIGNS REVIEWED. CALL LIGHT IN REACH.
--- NOTE | 2024-07-18 18:19 | NUR ---
1715 ASSUMED CARE OF PATIENT. FENTANYL 50 MCG GIVEN FOR RLE PAIN. FRIENDS AT BEDSIDE VISITING. PT DENIES ANY NEEDS AT THIS TIME
--- NOTE | 2024-07-18 18:38 | NUR ---
RESTING IN BED. PT REPORTS PAIN TO RLE AT ACCEPTABLE LEVEL. VISITORS LEAVING FOR THE NOC. P
[2024-07-18 19:34] VITALS: BP 138/87
[2024-07-18] MEDS ORDERED: Amoxicillin/Clavulanate K 875 MG Tab PO SCH (21:00)
--- NOTE | 2024-07-19 03:46 | NUR ---
READING PROFESSOR SUMMARY VSS. COOPERATIVE WITH CARE. PAIN OF RIGHT FOOT CONTROLLED WITH ANALGESICS - SEE MAR FOR DETAILS. ALERT AND ORIENTED. TOLERATING DIET AND FLUIDS WELL. CONTINENT. WOUND VAC OF RIGHT FOOT IN USE BUT NO NOTED DRAINAGE. HAS BEEN RESTING QUIETLY WITH FEW INTERRUPTIONS. ABLE TO REPOSITION SELF IN BED WITHOUT ASSIST. CALL LIGHTIN REACH, RAILS UP X 2 AND BED IN LOW POSITION FOR SAFETY. WILL CONTINUE TO MONITOR
[2024-07-19 05:19] VITALS: BP 120/88
[2024-07-19 06:07] LABS: BASOPHILS ABSOLUTE AUTO 0.04 K/mm3 (0.00-0.23); BASOPHILS PERCENT AUTO 1 % (0-2); EOSINOPHILS ABSOLUTE AUTO 0.31 K/mm3 (0.00-0.68); EOSINOPHILS PERCENT AUTO 7 % (0-6); Hematocrit 30.8 % (37.0-53.0); Hemoglobin 9.8 g/dL (13.5-17.5); IMMATURE GRAN ABSOLUTE AUTO 0.05 K/mm3 (0.00-0.10); IMMATURE GRAN PERCENT AUTO 1 % (0-1); LYMPHOCYTES ABSOLUTE AUTO 1.44 K/mm3 (0.84-5.20); LYMPHOCYTES PERCENT AUTO 31 % (21-46); MONOCYTES ABSOLUTE AUTO 0.52 K/mm3 (0.16-1.47); MONOCYTES PERCENT AUTO 11 % (4-13); Mean Corpuscular HGB 26.7 pg (26.0-34.0); Mean Corpuscular HGB Conc 31.8 g/dL (31.5-36.5); Mean Corpuscular Volume 84 fL (80-100); Mean Platelet Volume 10.9 fL (9.1-12.4); NEUTROPHILS ABSOLUTE AUTO 2.29 K/mm3 (1.96-9.15); NEUTROPHILS PERCENT AUTO 49 % (41-73); Platelet Count 196 K/mm3 (150-400); RDW Coefficient Variation 14.4 % (11.7-14.2); RDW Standard Deviation 43.8 fL (35.1-46.3); Red Blood Cell Count 3.67 M/mm3 (4.30-5.90); White Blood Cell Count 4.65 K/mm3 (4.00-11.30)
[2024-07-19 06:32] LABS: Bun/Creatinine Ratio 45.8 (12.0-20.0); Creatinine, Blood 0.85 mg/dL (0.60-1.20); Potassium, Blood 4.2 mmol/L (3.5-5.5)
[2024-07-19 07:38] VITALS: BP 128/88
[2024-07-19 15:21] VITALS: BP 156/88
--- NOTE | 2024-07-19 18:25 | NUR ---
SHIFT SUMMARY: PT A&O X4. PLEASANT AND COOPERATIVE WITH CARE. SBA TO BSC. ATTEMPTED CALL TO DR. POST. LEFT VOICEMAIL BUT NO CALL BACK AT THIS TIME. SPOKE WITH DR. [place] STATING SHE WOULD GET AHOLD OF DR. POST TOMORROW FOR CLEAR ORDERS ON WOUND VAC CHANGES. PT RECEIVING ORAL ABX. PAIN MEDICATION GIVEN PER EMAR T/O SHIFT. MUSCLE RELAXERS PROVIDED FOR BACK PAIN. CALL LIGHT IN REACH. BED IN LOWEST POSITION.
[2024-07-19 20:03] VITALS: BP 136/81
--- NOTE | 2024-07-20 04:10 | NUR ---
Photo Finish Photographer Shift Summary Patient admitted for Critical Limb Ischemia of Right Lower Extremity. VSS. Alert and oriented x4. Patient complaining of pain in right leg. Fentenyl and Roxicodone effective for pain relief. Wound vac patent with no drainage. Able to reposition self without assistance for comfort. Patient resting quietly with few interruptions. Bed rails up x2. Bed in lowest position for safety and call light within reach. Will continue to monitor.
[2024-07-20 05:35] VITALS: BP 136/83
[2024-07-20 07:48] VITALS: BP 113/80
[2024-07-20 15:15] VITALS: BP 128/76
--- NOTE | 2024-07-20 16:56 | NUR ---
SUMMARY PATIENT PENDING APPROVAL TO [facility]ICHEY. WOUND VAC TO RIGHT FOOT IN PLACE AND WORKING APPROPRIATELY. NO DRAINAGE PRESENT. CALLED DR. POST TODAY TO CLARIFY WOUND VAC DRESSING CHANGE ORDERS. TO BE CHAGNED TODAY AND THEN EVERY THREE DAYS AFTER. I WAS NOT ABLE TO GET TO WOUND VAC DRESSING CHANGE THIS SHIFT. GIAN PICHARDO RESUMING CARE OF THIS PATIENT FOR THE REST OF DAY SHIFT. IF NOT CHANGED TODAY WILL BE CHANGED TONIGHT. PATIENT PAIN MANAGED TODAY WITH PRN OXYCODONE AND IV FENTANUL GIVEN X1 WITH REPORTED RELIEF. PATIENT CALLS APPROPRIATELY. NONWEIGHT BEARING TO RIGHT FOOT.
--- NOTE | 2024-07-20 18:30 | NUR ---
ASSUMED CARE AND SHIFT SUMMARY PATIENT ALERT AND INTERACTIVE. ASSUMED CARE AT 1700, WOUND VAC CHANGED PER ORDERS AND WOUND CARE PROVIDED TO ANKLE, HEAL AND LOWER LEG WOUNDS. PATIENT TO GO TO SNF FOR WOUND CARE ONCE INSURANCE AUTH OBTAINED. PATIENT AWARE OF PLAN
[2024-07-20 19:53] VITALS: BP 151/95
--- NOTE | 2024-07-21 03:26 | NUR ---
RIGHT OF WAY SUPERVISOR SUMMARY BP ELEVATED, OTHERWISE VSS. ALERT AND ORIENTED. COOPERATIVE WITH CARE. INSULIN COVERAGE ORDERED, SEE MD ORDERS. WOUND VAC TO RIGHT FOOT, NO NOTED EXUDATE. VOICED FEELING IN FOOT COMING BACK. UP TO COMMODE BY SELF. ABLE TO REPOSITION SELF IN BED WITHOUT ASSIST. RECEIVING ANALGESICS FOR PAIN OF BACK AND RIGHT LOWER EXT - SEE MAR FOR DETAILS. HAS BEEN RESTING QUIETLY WITH FEW INTERRUPTIONS. CALL LIGHT IN REACH, RAILS UP X 2 AND BED IN LOW POSITOIN FOR SAFETY. WILL CONT TO MONITPR
[2024-07-21 03:54] VITALS: BP 126/79
[2024-07-21 07:10] VITALS: BP 126/75
[2024-07-21] MEDS ORDERED: AMOCLA875 PO (10:42)
[2024-07-21] MEDS ORDERED: VISBIOME 112.51 EACH PO (10:43)
[2024-07-21] MEDS ORDERED: OXYC10ER PO (10:43)
--- NOTE | 2024-07-21 12:23 | NUR ---
WET TO DRY DRESSING PLACED AFTER WOUND VAC REMOVAL. EXTRA ONE TIME DOSE OF 10 MG OXYGIVEN TO PATIENT PRIO TO TRANSFER.
--- NOTE | 2024-07-21 12:41 | NUR ---
DISCHARGE NOTE PATIENT PICKED UP. TRANSFERRED IN OWN PERSONAL WHEELCHAIR. BELONGINGS GATHERED AND SENT [facility] PATIENT. WOUND VAC REMOVED AND WET TO DRY DRESSING PLACED. REPORT CALLED TO [facility]. TO FOLLOW UP WITH DR. POST. SNF TO MANAGE MEDICATIONS. PER DR. PADMINI BANERJEE TO GIVE EXTRA DOSE OF 10 MG OXY PRIOR TO DC. POWERGLIDE AND PIV REMOVED. NO NEW QUESTIONS OR CONCERNS PRIOR TO DC.
--- NOTE | 2024-07-21 13:09 | NUR ---
HOPITAL WOUND VAC LEFT IN ROOM
== END 2024-07-21 12:44 | DRG 240 ==
LOC: ER 13:32 → ERHOLD 13:33 → MEDS 13:33 → PCU 07-09 15:38 → MEDS 07-09 15:38 → PCU 07-12 12:15 → MEDS 07-13 12:58
PROVIDERS: Internal Medicine; Pharmacist Pharmacotherapy; Physician Assistant; Student in an Organized Health Care Education/Training Program; ADMIT Family Medicine
PROC: 04FR3ZZ Fragmentation of Right Posterior Tibial Artery, Percutaneous Approach (ICD-10-PCS; principal; 2024-07-12)
PROC: 047R3ZZ Dilation of Right Posterior Tibial Artery, Percutaneous Approach (ICD-10-PCS; 2024-07-12)
PROC: B44FZZ3 Ultrasonography of Right Lower Extremity Arteries, Intravascular (ICD-10-PCS; 2024-07-12)
PROC: B4101ZZ Fluoroscopy of Abdominal Aorta using Low Osmolar Contrast (ICD-10-PCS; 2024-07-12)
PROC: B41F1ZZ Fluoroscopy of Right Lower Extremity Arteries using Low Osmolar Contrast (ICD-10-PCS; 2024-07-12)
PROC: 0Y6M0ZF Detachment at Right Foot, Partial 5th Ray, Open Approach (ICD-10-PCS; 2024-07-14)
DX: E11.52 Type 2 diabetes mellitus with diabetic peripheral angiopathy with gangrene (principal); I70.261 Atherosclerosis of native arteries of extremities with gangrene, right leg; M86.171 Other acute osteomyelitis, right ankle and foot; E11.69 Type 2 diabetes mellitus with other specified complication; I25.10 Atherosclerotic heart disease of native coronary artery without angina pectoris; I10 Essential (primary) hypertension; D64.9 Anemia, unspecified; E78.5 Hyperlipidemia, unspecified; E11.621 Type 2 diabetes mellitus with foot ulcer; E11.42 Type 2 diabetes mellitus with diabetic polyneuropathy; L97.519 Non-pressure chronic ulcer of other part of right foot with unspecified severity; L89.512 Pressure ulcer of right ankle, stage 2; L89.612 Pressure ulcer of right heel, stage 2; Z88.5 Allergy status to narcotic agent; Z88.8 Allergy status to other drugs, medicaments and biological substances; Z88.2 Allergy status to sulfonamides; Z79.84 Long term (current) use of oral hypoglycemic drugs; Z79.4 Long term (current) use of insulin; Z79.01 Long term (current) use of anticoagulants; Z89.612 Acquired absence of left leg above knee; Z95.5 Presence of coronary angioplasty implant and graft; Z89.022 Acquired absence of left finger(s); Z87.891 Personal history of nicotine dependence; Z89.421 Acquired absence of other right toe(s)
CPT/HCPCS: 36415; 73630; 76937; 80048; 80053; 80202; 82947; 83036; 84439; 84443; 84481; 85014; 85018; 85025; 85049; 85347; 85520; 85610; 85730; 88305; 88311; 94760; 96365; 96366; 96367; 96368; 96376; 97110; 97110-CQ; 97162; 97165; 97530; 99152; 99153; 99285-25; A9270; C1725; C1753; C1760; C1769; C1887; C1894; G0378; J0360; J1644; J1815; J2250; J2543; J3010; J3370; J7030; J7040; J7050; J7120; Q9967

== ENCOUNTER → 2024-07-27 | Day surgery (SDC) | payer OTHER ==
[~2024-07-27] MED LIST changes: +Lidocaine HCl 4% Cream 5 GM ONE; +VISBIOME 112.51 EACH PO
== END ==
LOC: WOUND 03:29
DX: E11.621 Type 2 diabetes mellitus with foot ulcer (principal); E11.622 Type 2 diabetes mellitus with other skin ulcer; I70.213 Atherosclerosis of native arteries of extremities with intermittent claudication, bilateral legs; L97.515 Non-pressure chronic ulcer of other part of right foot with muscle involvement without evidence of necrosis; L97.412 Non-pressure chronic ulcer of right heel and midfoot with fat layer exposed; L97.312 Non-pressure chronic ulcer of right ankle with fat layer exposed; E11.42 Type 2 diabetes mellitus with diabetic polyneuropathy; T81.31XS Disruption of external operation (surgical) wound, not elsewhere classified, sequela; I10 Essential (primary) hypertension; E78.5 Hyperlipidemia, unspecified; Z89.612 Acquired absence of left leg above knee
CPT/HCPCS: A6213; A9270

== ENCOUNTER 2024-08-02 06:10 | Day surgery (SDC) | payer OTHER ==
[~2024-08-02 06:10] MED LIST changes: -Lidocaine HCl 4% Cream 5 GM ONE
[2024-08-02] MEDS ORDERED: Lidocaine HCl 4% Cream 5 GM ONE (13:40)
== END 2024-08-02 23:00 | disposition home or self-care (01) ==
LOC: WOUND 06:10
DX: E11.622 Type 2 diabetes mellitus with other skin ulcer (principal); L97.312 Non-pressure chronic ulcer of right ankle with fat layer exposed; E11.621 Type 2 diabetes mellitus with foot ulcer; L97.412 Non-pressure chronic ulcer of right heel and midfoot with fat layer exposed; T81.31XA Disruption of external operation (surgical) wound, not elsewhere classified, initial encounter; E11.42 Type 2 diabetes mellitus with diabetic polyneuropathy; E11.51 Type 2 diabetes mellitus with diabetic peripheral angiopathy without gangrene; I70.213 Atherosclerosis of native arteries of extremities with intermittent claudication, bilateral legs; Z89.612 Acquired absence of left leg above knee; I10 Essential (primary) hypertension; E78.5 Hyperlipidemia, unspecified
CPT/HCPCS: A6213; A9270

== ENCOUNTER 2024-08-09 04:14 | Day surgery (SDC) | payer OTHER ==
[2024-08-09] MEDS ORDERED: Lidocaine HCl 4% Cream 5 GM ONE (14:08)
== END 2024-08-09 23:10 | disposition home or self-care (01) ==
LOC: WOUND 04:14
DX: E11.621 Type 2 diabetes mellitus with foot ulcer (principal); L97.412 Non-pressure chronic ulcer of right heel and midfoot with fat layer exposed; E11.622 Type 2 diabetes mellitus with other skin ulcer; L97.312 Non-pressure chronic ulcer of right ankle with fat layer exposed; T81.31XA Disruption of external operation (surgical) wound, not elsewhere classified, initial encounter; E11.42 Type 2 diabetes mellitus with diabetic polyneuropathy; E11.51 Type 2 diabetes mellitus with diabetic peripheral angiopathy without gangrene; I70.213 Atherosclerosis of native arteries of extremities with intermittent claudication, bilateral legs; Z89.612 Acquired absence of left leg above knee; I10 Essential (primary) hypertension; E78.5 Hyperlipidemia, unspecified
CPT/HCPCS: A6213; A9270

== ENCOUNTER 2024-08-16 01:54 | Day surgery (SDC) | payer OTHER ==
[2024-08-16] MEDS ORDERED: Lidocaine HCl 4% Cream 5 GM ONE (13:45)
== END 2024-08-16 23:14 | disposition home or self-care (01) ==
LOC: WOUND 01:54
DX: E11.621 Type 2 diabetes mellitus with foot ulcer (principal); L97.514 Non-pressure chronic ulcer of other part of right foot with necrosis of bone; L97.312 Non-pressure chronic ulcer of right ankle with fat layer exposed; L97.412 Non-pressure chronic ulcer of right heel and midfoot with fat layer exposed; T81.31XA Disruption of external operation (surgical) wound, not elsewhere classified, initial encounter; E11.622 Type 2 diabetes mellitus with other skin ulcer; E11.42 Type 2 diabetes mellitus with diabetic polyneuropathy; E11.51 Type 2 diabetes mellitus with diabetic peripheral angiopathy without gangrene; I70.213 Atherosclerosis of native arteries of extremities with intermittent claudication, bilateral legs; Z89.612 Acquired absence of left leg above knee; I10 Essential (primary) hypertension; E78.5 Hyperlipidemia, unspecified
CPT/HCPCS: A6213; A9270

== ENCOUNTER 2024-09-01 00:43 | Day surgery (SDC) | payer OTHER | END 2024-09-01 23:25 | disposition home or self-care (01) | LOC: HBO 00:43 → WOUND 15:58 → HBO 16:43 | DX: E11.621 Type 2 diabetes mellitus with foot ulcer (principal); L97.415 Non-pressure chronic ulcer of right heel and midfoot with muscle involvement without evidence of necrosis; T81.31XS Disruption of external operation (surgical) wound, not elsewhere classified, sequela; L97.312 Non-pressure chronic ulcer of right ankle with fat layer exposed; E11.622 Type 2 diabetes mellitus with other skin ulcer; E11.42 Type 2 diabetes mellitus with diabetic polyneuropathy; E11.51 Type 2 diabetes mellitus with diabetic peripheral angiopathy without gangrene; I70.213 Atherosclerosis of native arteries of extremities with intermittent claudication, bilateral legs; Z89.612 Acquired absence of left leg above knee; Y83.8 Other surgical procedures as the cause of abnormal reaction of the patient, or of later complication, without mention of misadventure at the time of the procedure | CPT/HCPCS: 82947; G0277 ==

== ENCOUNTER 2024-09-03 02:42 | Day surgery (SDC) | payer OTHER | END 2024-09-03 23:00 | disposition home or self-care (01) | LOC: HBO 02:42 | DX: E11.621 Type 2 diabetes mellitus with foot ulcer (principal); L97.415 Non-pressure chronic ulcer of right heel and midfoot with muscle involvement without evidence of necrosis; E11.622 Type 2 diabetes mellitus with other skin ulcer; L97.315 Non-pressure chronic ulcer of right ankle with muscle involvement without evidence of necrosis; E11.42 Type 2 diabetes mellitus with diabetic polyneuropathy; E11.51 Type 2 diabetes mellitus with diabetic peripheral angiopathy without gangrene; I70.213 Atherosclerosis of native arteries of extremities with intermittent claudication, bilateral legs; Z89.612 Acquired absence of left leg above knee; L97.514 Non-pressure chronic ulcer of other part of right foot with necrosis of bone; L97.413 Non-pressure chronic ulcer of right heel and midfoot with necrosis of muscle; L97.312 Non-pressure chronic ulcer of right ankle with fat layer exposed; E78.5 Hyperlipidemia, unspecified; I10 Essential (primary) hypertension | CPT/HCPCS: 82947; A9270; G0277 ==

== ENCOUNTER 2024-09-06 03:30 | Day surgery (SDC) | payer OTHER | END 2024-09-06 23:41 | disposition home or self-care (01) | LOC: HBO 03:30 | DX: E11.621 Type 2 diabetes mellitus with foot ulcer (principal); T81.31XA Disruption of external operation (surgical) wound, not elsewhere classified, initial encounter; L97.414 Non-pressure chronic ulcer of right heel and midfoot with necrosis of bone; E11.622 Type 2 diabetes mellitus with other skin ulcer; L97.312 Non-pressure chronic ulcer of right ankle with fat layer exposed; E11.42 Type 2 diabetes mellitus with diabetic polyneuropathy; E11.51 Type 2 diabetes mellitus with diabetic peripheral angiopathy without gangrene; I70.234 Atherosclerosis of native arteries of right leg with ulceration of heel and midfoot; I70.233 Atherosclerosis of native arteries of right leg with ulceration of ankle; I70.212 Atherosclerosis of native arteries of extremities with intermittent claudication, left leg; Z89.612 Acquired absence of left leg above knee | CPT/HCPCS: 82947; G0277 ==

== ENCOUNTER → 2024-11-22 | Outpatient (CLI) | payer OTHER ==
[~2024-11-22] MED LIST changes: +DOXY100 PO
[2024-11-22 21:30] LABS: Campylobacter Sp Not Detected (NOT DETECT); E. Coli O157 Not Detected (NOT DETECT); Enteroaggregative E. coli-EAEC Not Detected (NOT DETECT); Enteropathogenic E. coli-EPEC Not Detected (NOT DETECT); Enterotoxigenic E. coli-ETEC Not Detected (NOT DETECT); Salmonella Sp Not Detected (NOT DETECT); Shiga Toxin-prod E. coli-STEC Not Detected (NOT DETECT); Shigella/Enteroin E. coli-EIEC Not Detected (NOT DETECT); Vibrio Sp Not Detected (NOT DETECT)
[2024-11-26 19:52] LABS: OVA AND PARASITE,FECAL INTERP Negative (Negative)
== END | disposition home or self-care (01) ==
LOC: LAB SHORT 11:22 → LAB 11:22 → LAB FUT 11-11 11:20
PROVIDERS: Internal Medicine
DX: R19.7 Diarrhea, unspecified (principal)
CPT/HCPCS: 87015; 87045; 87046; 87177; 87205; 87209; 87507; 87899